=== PATIENT | female | born 1935 | race Caucasian/White ===

== ENCOUNTER 2017-10-14 12:10 | Inpatient (IN) | payer MEDICARE, OTHER ==
[2017-10-14] MEDS ORDERED: Lorazepam 2 MG/ML VIAL ONE (12:15)
[2017-10-14 12:42] LABS: #Eosinphils 0.1 thou/uL (0.0-0.7); #Lymphocytes 1.5 thou/uL (1.20-3.40); #Monocytes 0.3 thou/uL (0.11-0.59); #Neutrophils 6.9 thou/uL (1.40-6.50); %Basophils 0.2 % (0.0-1.0); %Eosinophils 0.8 % (0.0-10.0); %Lymphocytes 16.5 % (21.0-51.0); %Monocytes 3.9 % (0.0-10.0); %Neutrophils 78.5 % (42.0-75.0); Mean Corpuscular HGB CONC 31.9 g/dL (32.0-36.0); Mean Corpuscular Hemoglobin 30.4 pg (27.0-31.0); Mean Corpuscular Volume 95.4 fl (81.0-99.0); Mean Platelet Volume 7.6 fL (7.4-10.4); Platelet Count 239 thou/uL (130-400); RBC Distribution Width 12.1 % (11.5-14.5); Red Blood Cell (RBC) Count 4.26 mill/uL (4.20-5.40); White Blood Cell (WBC) Count 8.8 thou/uL (4.8-10.8)
[2017-10-14 13:10] LABS: INR-International Normal Ratio 1.6; Prothrombin Time 19.5 SEC (12.0-14.7)
[2017-10-14 13:11] LABS: PTT 55.6 SEC (22.9-36.1)
[2017-10-14 13:14] LABS: Bilirubin Negative (Negative); Blood, Urine Negative (Negative); Clarity CLEAR (Clear); Glucose, Urine (Dipstick) Negative (Negative); Leukocyte Negative (Negative); Nitrite Negative (Negative); Protein, Urine (Dipstick) Negative (Neg-Trace); Specific Gravity, Urine 1.016 (1.002-1.036); Urobilinogen 0.2 mg/dL (0.2-1.0)
--- NOTE | 2017-10-14 13:18 | CT ---
CT BRAIN WITHOUT CONTRAST: HISTORY: Stroke alert. Aphasia. Combative. Left-sided facial drooping. FINDINGS: No evidence of acute infarct, hemorrhage, midline shift, or abnormal extraaxial fluid collection is s een. 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 The ventricular size is appropriate, and the basilar cisterns are patent. The bony calvarium is intact. There is mild mucosal disease in the paranasal sinuses. IMPRESSION: No CT evidence of acute intracranial process. The results were called over the telephone to the ER physician, Dr. Glez, at 12:35 p.m. CODE CR POS: [facility]
[2017-10-14 13:25] LABS: ALT (SGPT) 14 U/L (8-55); AST (SGOT) 26 U/L (5-34); Albumin 3.9 g/dL (3.4-4.8); Alkaline Phosphatase 79 U/L (40-150); Anion Gap 13 mmol/L (10-20); BUN (Urea Nitrogen) 11 mg/dL (9.8-20.1); Bilirubin, Total 0.6 mg/dL (0.2-1.2); Calc. Creatinine Clearance 0 mL/min (70-130); Calcium 8.7 mg/dL (7.8-10.44); Carbon Dioxide 21 mmol/L (23-31); Chloride 106 mmol/L (98-107); Estimated GFR-MDRD 70; Globulin 3.7 g/dL (2.4-3.5); Glucose 117 mg/dL (83-110); Potassium 4.3 mmol/L (3.5-5.1); Protein, Total 7.6 g/dL (6.0-8.3); Sodium 136 mmol/L (136-145)
--- NOTE | 2017-10-14 13:37 | CT ---
CT ANGIO HEAD WITH CONTRAST CT ANGIO NECK: CT ANGIO HEAD WITH CONTRAST: TECHNIQUE: Multiple axial tomograms are obtained through the head following a cerebral angio protocol with multi planar reconstruction and 3D post processing. INDICATION: Stroke alert. Aphasia. Left side weakness. FINDINGS: The intracranial internal carotid arteries appear patent and symmetric. Anterior cerebral arteries, middle cerebral arteries, and posterior cerebral arteries also appear patent and symmetric. Basilar artery is patent. There is no evidence of stenosis or occlusion. IMPRESSION: Unremarkable CT angio of brain. CT ANGIO NECK: TECHNIQUE: Multiple axial tomograms were obtained through the neck with multiplanar reconstruction and 3D post p rocessing. INDICATION: Stroke protocol, aphasia. FINDINGS: No evidence of stenosis is seen at the origin of the arch vessels. The common carotid arteries appea r unremarkable bilaterally. Mild atherosclerotic change seen in the bulbs bilaterally; however, there is no evidence of stenosis seen in either internal carotid artery. Vertebral arteries are patent. No vertebral stenosis. IMPRESSION: Unremarkable CT angio neck. POS: [facility]
[2017-10-14] MEDS ORDERED: ISOVUE-370 76%-LOCM 1 ML ONE (15:07)
[2017-10-14] MEDS ORDERED: Sodium Chloride 0.9% 1,000 ML IV SCH (15:31)
[2017-10-14] MEDS ORDERED: Ondansetron HCl/PF 4 MG/2 ML Vial IVP PRN (15:31)
[2017-10-14] MEDS ORDERED: Guaifenesin DM 100-10/5 ML UDCUP PO PRN (15:31)
[2017-10-14 15:48] LABS: Dilantin Less than 1.8 ug/mL (10.0-20.0); Valproic Acid (Depakene) Less than 12.5 ug/mL (50.0-100.0)
[2017-10-14] MEDS: Dextrose 5 %-0.45 % NaCl 1,000 ML IV SCH (16:18)
--- NOTE | 2017-10-14 16:48 | CON ---
DATE OF CONSULTATION: 10/14/2017 SERVICE: Pulmonary Medicine. REASON FOR CONSULTATION: ICU patient. HISTORY OF PRESENT ILLNESS: The patient is an 82-year-old white female with past medical history significant for absolutely nothing that I am aware of. That being said, she was in her usual state of health until about 11:30 this morning. She is visiting [place] from out of town. She developed acute onset of encephalopathy and difficulty with speaking. She was subsequently brought to the emergency department. Fear for an acute stroke was present. As such, she was given TPA. She got tucked in the ICU. She cannot provide any additional elements of the history. Her sister apparently was present in the ER, but not currently at bedside. Otherwise, I am not aware of any subacute presentation of fevers, chills, shortness of breath or chest discomfort. PAST MEDICAL HISTORY: 1. Hypertension. 2. Seizure disorder. PAST SURGICAL HISTORY: Right carotid endarterectomy. SOCIAL HISTORY: She has a remote history of smoking, but apparently quit. I am not aware of any alcohol or illicit drug use. FAMILY HISTORY: Likely noncontributory. ALLERGIES: No known drug allergies. MEDICATIONS: Unknown. REVIEW OF SYSTEMS: This cannot be obtained as the patient is currently encephalopathic. PHYSICAL EXAMINATION: VITAL SIGNS: Afebrile, pulse 68, blood pressure 118/66, respirations 13, saturation 99% on room air. GENERAL: The patient is awake and alert, in no apparent distress. LUNGS: Excellent air entry. There is no prolonged expiratory phase, wheezing, rhonchi, or crackles present. HEART: Normal rate, regular. ABDOMEN: Soft, nontender, nondistended. Bowel sounds are positive. MUSCULOSKELETAL: No cyanosis or clubbing. There is no pitting in the bilateral lower extremities. NEUROLOGIC: Her pupils are equal, round, and reactive to light. Doll's eyes are normal. She is not following any commands, but all extraocular movements are intact. Strength appears to be symmetric throughout. Reflexes are certainly symmetric at the brachioradialis, biceps, patellar, and Achilles. She demonstrates fairly decent strength though she is not following any commands. Sensation is clearly intact throughout as she has withdrawal, and grimace associated with minimal stimulation in the bilateral upper and lower extremities. I do not appreciate any significant facial asymmetry. She is not able to repeat words. She answers in 1-2 word sentences. Proprioception cannot be assessed because the patient does not follow commands. LABORATORY DATA: WBC 8.8, hemoglobin 13.0, platelets 238,000. INR 1.6. Basic metabolic profile, liver function studies are essentially unremarkable. Urinalysis is unremarkable. Toxicology is negative to date. IMAGIN. CTA of the head demonstrates no evidence of stenosis seen in the origin of the arch vessels, carotid arteries appear unremarkable bilaterally. There are mild atherosclerotic changes in the bulbs bilaterally with no evidence of stenoses and either internal carotid artery. Vertebral arteries are patent. No vertebral stenosis is identified. 2. CT of the brain demonstrates no obvious intracranial abnormality. 3. CTA of the [place] demonstrates no obvious flow limiting lesion. ASSESSMENT: 1. Metabolic encephalopathy. 2. Seizure disorder. 3. Spell, status post TPA. DISCUSSION AND PLAN: We can get an MRI tomorrow. Her mentation is starting to clear already. As such, we will just give her more time for that. We will continue her antiepileptic drug, and I will check an ammonia level with tomorrow morning's laboratories. Of note, her INR was 1.6. I do wonder whether or not the synthetic function of her liver is impaired. We will attempt to get some records from family and local physicians. We will continue gentle hydration over the next 24 hours. Pulmonary Critical Care will continue to follow along. 70 minutes have been devoted to this patient in various activities. I personally reviewed all imaging studies and laboratory data noted within this document. For fifty percent of this time, I was interacting with the patient at the bedside or coordinating care with the care team. For the remainder of the time I was immediately available to the patient in the hospital unit. FORD
[2017-10-14] MEDS: hydrALAZINE 20 MG/ML VIAL SLOW IVP PRN ×2 (16:55→21:05)
[2017-10-14 18:19] LABS: Lactic Acid 0.9 mmol/L (0.5-2.2)
[2017-10-14] MEDS: Famotidine 20 MG TAB PO SCH (20:29)
[2017-10-14] MEDS: Docusate 100 MG CAP PO SCH (20:29)
[2017-10-14] MEDS: Atorvastatin Calcium 20 MG TAB PO SCH (20:29)
--- NOTE | 2017-10-15 02:41 | HP ---
REASON FOR ADMISSION: Acute cerebrovascular accident with aphasia. HISTORY OF PRESENT ILLNESS: Please note the majority of this history is obtained by talking to Dr. Glez in the ER as patient is currently not oriented. She apparently came along with her sister here to visit [employer] [facility] from [place]. The patient is 82 years old. She normally does all her activities of daily living. She apparently is also healthy, per sister, who accompanied the patient to the ER, but is not here at present. While she was at the [facility], she got agitated, confused, and stopped talking. She was moving all extremities. She was brought to emergency room and was suspected to have a stroke. This happened around 11:30. She was within the window and the case was discussed with Dr. Juan Horvath, neurologist over the phone. She was given TPA in the ER. Post-TPA, patient has been talking, but is not making any sense at present. The patient also has known history of seizure disorder and per ER physician, who discussed with the patient's sister. This did not appear to be a grand mal seizure per bystanders and the sister. PAST MEDICAL/SURGICAL HISTORY: Hypertension, questionable seizure disorder, right carotid artery endarterectomy, pacemaker. CURRENT MEDICATIONS: Cannot be obtained as patient is not oriented and no family is available. PERSONAL HISTORY: Per ER records, the patient was a former smoker. Does not abuse alcohol or drugs at present. FAMILY HISTORY: Cannot be obtained as patient is not oriented. REVIEW OF SYSTEMS: Cannot be obtained as patient is not oriented. PHYSICAL EXAMINATION: GENERAL: The patient is an 82-year-old female who is currently not in any acute distress, but is not oriented. VITAL SIGNS: Pulse is 182/76, pulse 70 per minute, respiratory rate 18 per minute, temperature 98.1 degrees Fahrenheit, and saturating 94% on room air. NECK: Supple, no elevated JVD. HEENT: Extraocular muscles intact. Pupils reacting to light. Oral cavity mucous membranes are dry. No exudates or congestion. CARDIOVASCULAR: S1 and S2 heard. Regular rhythm. RESPIRATORY: Air entry 1+ bilaterally. No rales or rhonchi. ABDOMEN: Soft, bowel sounds heard. No tenderness, rigidity or guarding. EXTREMITIES: No peripheral edema or calf tenderness. VASCULAR SYSTEM: Peripheral pulses 1+ bilateral, no ischemic ulcerations or gangrene. CENTRAL NERVOUS SYSTEM: Patient is seen moving all extremities. Her hand it applications manager is good in both upper extremities. The patient is able to lift up to 30 degrees in both lower extremities, but does not sustain a lift and hardly holds for 3-4 seconds and drops them. This is equal in both lower extremities. It is unclear if patient is right or left handed at present. No gross focal deficits seen. The patient has some mild nystagmus, which appears to be horizontal. Her extraocular muscles are intact. No gross cranial nerve deficits are seen. Reflexes are 2+ bilateral. Babinski is equivocal. Cerebellar signs and gait cannot be tested at present due to patient's cognitive status. Psychiatric system: cannot be tested due to patient's poor cognitive status at present. LABORATORY AND X-RAY FINDINGS: EKG done shows paced rhythm at 86 beats per minute. QRS duration is 164 milliseconds. White count of 8, H&H 13 and 40, platelet count 239 with 78% neutrophils. PT/INR 19 and 1.6. PTT 55. Serum bicarbonate 21, BUN 11, creatinine 0.7, glucose is 117. Liver enzymes are within normal limits. Albumin is 3.9. UA shows no evidence of infection. Phenytoin levels are less than 1.8. Valproic acid is less than 12.5. CT angio brain and neck is unremarkable. CT brain shows no acute intracranial process. CLINICAL IMPRESSION AND PLAN: The patient is status post TPA for acute CVA for suspected acute cerebrovascular accident with aphasia. The patient does not have any gross motor deficits, which will be closely monitored. The patient apparently was fully nonverbal, but has been talking now, but is not making any sense with her verbage. She will be on D5 half NS at 75 mL per hour along with Pepcid, full dose aspirin, and Lipitor. We will empirically place her on Keppra 500 mg IV twice daily until we know the exact medications she takes for her seizures. Echo with 2D Doppler, MRI brain and Neurology consultation with Dr. Horvath will be requested as well. We will also ascertain more history once the family is available. There is no next of kin or person to notify or any family members or phone numbers available as of now on her demographic page on [employer]. Patient will be treated as full code until family is available to communicate her wishes. [facility]
--- NOTE | 2017-10-15 03:08 | CON ---
DATE OF CONSULTATION: 10/14/2017 CONSULTING PHYSICIAN: Hospitalist. IMPRESSION: 1. Stroke with receptive aphasia. 2. Hypertension. 3. Status post TPA. PLAN: 1. Monitor through the evening. 2. MRI of the brain tomorrow. 3. Start antiplatelet therapy and statin after 24 hours. HISTORY: Ms. Lr is an 82-year-old woman who was in the area out of town from her home. She was a ccompanied by her sister. She started acting incoherently while she was standing in the [facility] . She was brought in by EMS. She had a CT and CTA of the brain, both of which did not show any evid ence of stenosis or ischemic injury. Given that she was two hours into her symptomatology, she was g iven TPA. She has been moved to the ICU. She continues to not answer appropriately. She has otherw ise been stable since admission. PAST MEDICAL HISTORY: Otherwise unknown. ALLERGIES: Unknown. SOCIAL HISTORY: Unknown. FAMILY HISTORY: Unknown. REVIEW OF SYSTEMS: Not obtainable. PHYSICAL EXAMINATION: VITAL SIGNS: Blood pressure 185/74, pulse 65, and a sinus rhythm, respirations 18, saturation 96%. HEENT: Pupils are equal and reactive. Conjunctivae clear. Cranium normocephalic and atraumatic. NECK: Supple. EXTREMITIES: No cyanosis, clubbing or edema. NEUROLOGIC: She is lying in the bed covered up and the only verbiage I could get from her is that "I am cold, "could not get her to follow any commands appropriately. There is no facial asymmetry is n oted. No tone asymmetries were noted in the extremities. Plantar responses appear to be upgoing on the right. Gait is not testable. No abnormal movements were seen. IMAGING: Reviewed. SUMMARY: Picture of abrupt onset of lack of comprehension would be consistent with a left posterior parietal infarct. Agree with current treatment and will follow up on the results.
[2017-10-15] MEDS: hydrALAZINE 20 MG/ML VIAL SLOW IVP PRN ×3 (04:11→21:06)
[2017-10-15] MEDS: Dextrose 5 %-0.45 % NaCl 1,000 ML IV SCH (04:28)
[2017-10-15 06:04] LABS: INR-International Normal Ratio 1.4; Prothrombin Time 17.2 SEC (12.0-14.7)
[2017-10-15 06:05] LABS: Actual Bicarbonate (HCO3a) 23.4 mEq/L (22-28); Base Excess (BEa) -1.7 mEq/L (-2.0 to +3.0); CO2 Tension 41.3 mmHg (35.0-45.0); O2 Tension (PaO2) 51.4 mmHg (> 60.0); pH, Arterial 7.37 (7.35-7.45)
[2017-10-15 06:06] LABS: Calcium, Ionized 1.1 mmol/L (1.12-1.30); Hematocrit-ABG 43.8 % (36.0-47.0); Hemoglobin (Hb) 13.4 g/dL (12.0-16.0)
[2017-10-15 06:07] LABS: ALV-art Gradient 253.475 (0-20); Puncture Site RRA
[2017-10-15 06:22] LABS: ALT (SGPT) 14 U/L (8-55); AST (SGOT) 20 U/L (5-34); Albumin 3.8 g/dL (3.4-4.8); Alkaline Phosphatase 85 U/L (40-150); Anion Gap 12 mmol/L (10-20); BUN (Urea Nitrogen) 10 mg/dL (9.8-20.1); Bilirubin, Total 0.6 mg/dL (0.2-1.2); Calc. Creatinine Clearance 66 mL/min (70-130); Calcium 8.9 mg/dL (7.8-10.44); Carbon Dioxide 24 mmol/L (23-31); Cardiac Risk 2.2 (Less than 4.5); Chloride 102 mmol/L (98-107); Cholesterol 126 mg/dl (< 200 Desired); Estimated GFR-MDRD 63; Globulin 3.5 g/dL (2.4-3.5); Glucose 397 mg/dL (83-110); HDL Cholesterol 58 mg/dL (>60 Neg Risk); LDL Cholesterol, Calculated 55 mg/dL; Phosphorus 3.8 mg/dL (2.3-4.7); Potassium 3.2 mmol/L (3.5-5.1); Protein, Total 7.3 g/dL (6.0-8.3); Sodium 135 mmol/L (136-145); Triglycerides 63 mg/dL (Less than 150)
[2017-10-15 06:35] LABS: Band 1 % (5-11); Hemoglobin 13.1 g/dL (12.0-16.0); Lymphocytes 2 % (21-51); MDiff Complete? YES; Mean Corpuscular HGB CONC 32.4 g/dL (32.0-36.0); Mean Corpuscular Hemoglobin 30.5 pg (27.0-31.0); Mean Corpuscular Volume 94.2 fl (81.0-99.0); Mean Platelet Volume 7.8 fL (7.4-10.4); Monocytes 6 % (0-10); Neutrophil 91 % (42-75); PLT Morphology Comment Appears Adequate; Platelet Count 343 thou/uL (130-400); RBC Distribution Width 12.4 % (11.5-14.5); White Blood Cell (WBC) Count 26.2 thou/uL (4.8-10.8)
--- NOTE | 2017-10-15 08:27 | RAD ---
PORTABLE CHEST 1 VIEW: Date: 10/15/17 Time: 0608 hours HISTORY: Unresponsive, desaturation. FINDINGS/IMPRESSION: The heart size is normal. There is a right-sided pacer device. No lobar consolidation, pneumothoraces , marly pulmonary edema, or large effusions are seen. A questionable mild infiltrate is seen in the r ight lower lung. POS: [facility]
[2017-10-15] MEDS: Vancomycin HCl 1.25 GM in Sodium Chloride 0.9% 250 ML 250 ML IVPB SCH (08:45)
[2017-10-15] MEDS ORDERED: Dextrose 5% in Water 1,000 ML IV PRN (08:54)
[2017-10-15] MEDS ORDERED: Dextrose 50% Abboject 50 ML SYRINGE SLOW IVP PRN (08:54)
[2017-10-15] MEDS ORDERED: Cefepime 2 GM in Sodium Chloride 0.9% 100 ML IVPB SCH (09:00)
--- NOTE | 2017-10-15 09:05 | PRG ---
DATE OF SERVICE: 10/15/2017 SERVICE: Pulmonary Medicine INTERVAL HISTORY: The patient did poorly last night from a mentation standpoint. She started having a recrudescence in confusional state. She was unable to provide any additional elements of the history. That being said, she did not have a neurologic exam that was focalizing, though she cannot participate with some of the exam. Blood sugars went up. Additionally, she developed some hypoxemic failure requiring intermittent doses of BiPAP. She cannot provide additional elements of the history. Otherwise, there were no overnight events. There were no fevers. PHYSICAL EXAMINATION: VITAL SIGNS: Afebrile, pulse 97, blood pressure 141/54, respirations 24, saturation 100% on 21% FiO2 delivered via BiPAP with positive expiratory pressure of 8. HEENT: Normocephalic, atraumatic. Sclerae are white, conjunctivae pink. Oral mucosa is moist without lesions. LUNGS: Decent air entry. There are no prolonged expiratory phase. Rhonchi are present. No wheezing or crackles are appreciated. HEART: Normal rate, regular. ABDOMEN: Soft, nontender, nondistended. Bowel sounds are positive. MUSCULOSKELETAL: No cyanosis or clubbing. No pitting in the bilateral lower extremities. NEUROLOGIC: Grossly nonfocal. She is diffusely encephalopathic. I do not see any focalizing neurologic findings still. LABORATORY DATA: WBC 26.2, which is a significant rise, hemoglobin 13.1, platelets 343,000. INR 1.4 and gently down trending. PH 7.37, pCO2 41, pO2 51 , corresponding to saturation of 86%. This was on a Ventimask with 50% FiO2 at that time. Sodium 135, and gently down trending, potassium 3.2. Basic metabolic profile and liver function studies are otherwise unremarkable. Ammonia level was also normal. Urinalysis is completely unremarkable. Phenytoin level, and valproate level are both below the assay limit. IMAGING: Chest x-ray demonstrates there is a dual lead pacemaker in the right subclavian vein. There is a likely small infiltrate in the right basilar region. Otherwise, there is no obvious pleural effusion or massive consolidation identified. ASSESSMENT: 1. Acute hypoxic respiratory failure. 2. Metabolic encephalopathy. 3. Seizure disorder. 4. Cerebrovascular accident, status post t-PA. 5. Severe sepsis. 6. Community-acquired pneumonia. 7. Diabetes mellitus. DISCUSSION AND PLAN: We will increase insulin. I will take her off the D5 normal saline and put her on just regular normal saline for maintenance fluids. Potassium will be replaced today. I will check a magnesium with tomorrow morning's laboratories. A stat EEG is going to be performed. Hopefully, we will be able to get an MRI, but if we cannot, she may need a repeat CT of the head. Pulmonary Critical Care will continue to follow along and she will certainly need to remain in the ICU for the time being. FORD
[2017-10-15] MEDS: Potassium Chloride 40 MEQ in Sodium Chloride 0.9% 250 ML 250 ML IVPB SCH ×2 (10:26→14:57)
[2017-10-15] MEDS: Cefepime 2 GM in Sodium Chloride 0.9% 100 ML IVPB SCH ×2 (10:26→17:12)
[2017-10-15] MEDS: Sodium Chloride 0.9% 1,000 ML IV SCH ×2 (10:28→21:08)
[2017-10-15] MEDS: Famotidine 20 MG TAB PO SCH (10:33)
[2017-10-15] MEDS: Docusate 100 MG CAP PO SCH ×2 (10:33→21:55)
--- NOTE | 2017-10-15 13:16 | PDOC.PN ---
- Subjective Encounter Start Date: 10/15/17 Encounter Start Time: 10:25 Subjective: is getting EEG done, not awake -: seen moving left extre freely and right UE as well -: no obvious seizures noticed by staff overnight until now - Objective MAR Reviewed: Yes Vital Signs & Weight: Vital Signs (12 hours) Temp Pulse Resp BP Pulse Ox 10/15/17 08:00 97.5 F L 98 24 H 97 10/15/17 07:00 97.5 F L 10/15/17 06:25 100 26 H 98 10/15/17 06:05 82 L 10/15/17 04:11 81 188/56 H 10/15/17 04:00 95 10/15/17 03:00 97.5 F L Most Recent Monitor Data Heart Rate from ECG 77 NIBP 132/42 NIBP BP-Mean 56 Respiration from ECG 20 SpO2 99 I&O: 10/14/17 10/15/17 10/16/17 06:59 06:59 06:59 Intake Total 1156 Output Total 2405 163 Balance -1249 -163 Result Diagrams: 10/15/17 05:40 10/15/17 05:40 Phys Exam - Physical Examination HEENT: PERRLA, sclera anicteric Neck: no JVD, supple Respiratory: no wheezing, no rales Cardiovascular: RRR, no significant murmur Gastrointestinal: soft, non-tender, positive bowel sounds Musculoskeletal: no edema, pulses present Neurological: non-focal Dx/Plan (1) Acute encephalopathy Code(s): G93.40 - ENCEPHALOPATHY, UNSPECIFIED Status: Acute (2) CVA (cerebral vascular accident) Code(s): I63.9 - CEREBRAL INFARCTION, UNSPECIFIED Status: Suspected Qualifiers: CVA mechanism: unspecified Qualified Code(s): I63.9 - Cerebral infarction, unspecified (3) h/o seizure disorder Status: Chronic (4) Afib Code(s): I48.91 - UNSPECIFIED ATRIAL FIBRILLATION Status: Suspected Qualifiers: Atrial fibrillation type: paroxysmal Qualified Code(s): I48.0 - Paroxysmal atrial fibrillation (5) Sepsis Code(s): A41.9 - SEPSIS, UNSPECIFIED ORGANISM Status: Acute Qualifiers: Sepsis type: sepsis due to unspecified organism Qualified Code(s): A41.9 - Sepsis, unspecified organism (6) PNA (pneumonia) Code(s): J18.9 - PNEUMONIA, UNSPECIFIED ORGANISM Status: Acute Qualifiers: Pneumonia type: due to unspecified organism (7) Dyslipidemia Code(s): E78.5 - HYPERLIPIDEMIA, UNSPECIFIED Status: Chronic (8) HTN (hypertension) Code(s): I10 - ESSENTIAL (PRIMARY) HYPERTENSION Status: Chronic Qualifiers: Hypertension type: essential hypertension Qualified Code(s): I10 - Essential (primary) hypertension - Plan is on cefepime and vanc, cultures -: asp, lipitor, iv hydration -: dc keppra due to increasing lethargy/hypoxia -: tried to call Mr.John Lr x2 at diff times, unable to reach him -: prognosis guarded, if she gets worse might need intubation * . Review of Systems - Medications/Allergies Allergies/Adverse Reactions: Allergies Allergy/AdvReac Type Severity Reaction Status Date / Time No Known Drug Allergies Allergy Unverified 10/14/17 15:42 Medications: Current Medications Acetaminophen (Tylenol) 650 mg PO Q4H PRN PRN Reason: Headache/Fever or Pain Aspirin (Ecotrin) 325 mg PO DAILY [facility] Atorvastatin Calcium (Lipitor) 20 mg PO HS [facility] Last Admin: 10/14/17 20:29 Dose: Not Given Dextrose/Water (Dextrose 50%) 25 gm SLOW IVP PRN PRN PRN Reason: Hypoglycemia Docusate Sodium (Colace) 100 mg PO BID [facility] Last Admin: 10/15/17 10:33 Dose: Not Given Famotidine (Pepcid) 20 mg PO BID [facility] Last Admin: 10/15/17 10:33 Dose: Not Given Glucagon (Glucagon) 1 mg IM PRN PRN PRN Reason: Hypoglycemia Hydralazine HCl (Apresoline) 10 mg SLOW IVP Q15MIN PRN PRN Reason: SBP > 180 Last Admin: 10/15/17 04:11 Dose: 10 mg Vancomycin HCl 1.25 gm/ Sodium (Chloride) 250 mls @ 166.667 mls/hr IVPB 0800 [facility] Last Admin: 10/15/17 08:45 Dose: 250 mls Sodium Chloride (Normal Saline 0.9%) 1,000 mls @ 100 mls/hr IV .Q10H [facility] Last Admin: 10/15/17 10:28 Dose: 1,000 mls Dextrose/Water (D5w) 1,000 mls @ 0 mls/hr IV .Q0M PRN; As Directed PRN Reason: Hypoglycemia Potassium Chloride 40 meq/ (Sodium Chloride) 270 mls @ 67.5 mls/hr IVPB Q4H [facility] Stop: 10/15/17 16:59 Last Admin: 10/15/17 10:26 Dose: 270 mls Cefepime HCl 2 gm/ Sodium (Chloride) 100 mls @ 200 mls/hr IVPB 0100,0900,1700 [facility] Last Admin: 10/15/17 10:26 Dose: 100 mls Insulin Human Regular (Humulin R) 0 units SC .MILD SLIDING SCALE PRN PRN Reason: Mild Correctional Scale Miscellaneous Medication (Pharmacy To Dose) 0 each IVPB ASDIR [facility] Ondansetron HCl (Zofran) 4 mg IVP Q6H PRN PRN Reason: Nausea/Vomiting Sodium Chloride (Flush - Normal Saline) 10 ml IVF Q12HR [facility] Last Admin: 10/15/17 10:28 Dose: 10 ml Sodium Chloride (Flush - Normal Saline) 10 ml IVF PRN PRN PRN Reason: Saline Flush
[2017-10-15] MEDS ORDERED: PHENYLEPHRINE-NS 100 MCG/ML 10 ML SYRINGE ONE (15:42)
[2017-10-15] MEDS ORDERED: Lidocaine 1% PF 5 ML VIAL ONE (15:42)
[2017-10-15] MEDS ORDERED: PROPOFOL 200 MG/20 ML VIAL ONE (15:42)
--- NOTE | 2017-10-15 16:38 | MRI ---
BRAIN MRI WITH AND WITHOUT CONTRAST 10/15/17 CLINICAL HISTORY: Left facial droop, aphasia, neurological decline. Reference made to preceding head CT 10/14/17. FINDINGS: There has been interval development of mass producing hemorrhage centered at the left cerebellar rachael sphere with effacement of the fourth ventricle and rightward midline shift within the posterior fossa . There is resultant prominence of ventricular system with periventricular T2 hyperintensity indicati ng transependymal CSF migration. Additional nidus of hemorrhage is seen at the left occipital lobe. T here are also scattered extra-axial susceptibility regions likely related to scattered subarachnoid h emorrhage. The evaluation is limited by the degree of patient motion. Susceptibility along the interh emispheric falx in an extra-axial distribution is also present. no enhancing intra-axial mass is seen . Prominent degree of vasogenic edema is present at the left cerebellar hemisphere surrounding the abov e described large hemorrhage. The combination of hemorrhage and edema occupies the near entirety of t he left cerebellar hemisphere. There is also mass effect upon the adjacent brain stem. Parenchymal at rophy present. Scattered paranasal sinus mucosal thickening is incidentally seen. IMPRESSION: Large, interval, acute left posterior fossa hemorrhage with surrounding vasogenic edema which produce s ventricular obstruction at the level of the fourth ventricle. There is ventriculomegaly with transe pendymal CSF migration. Mass effect upon brain stem is also present. Additional multifocal intracranial hemorrhagic susceptibility is present bilaterally. Emergent neurosurgical consultation for decompression is warranted. Telephone call of findings placed to the patient's ordering physician, Vika Melendez, [phone], 10/15/17. Code CR POS: [facility]
[2017-10-15] MEDS ORDERED: PROPOFOL 20 ML ONE (16:49)
[2017-10-15] MEDS ORDERED: Propofol BOLUS 1,000 MG/100 ML VIAL IV PRN (17:00)
[2017-10-15] MEDS ORDERED: Ventilator Sedation Protocol 1 EACH FS SCH (17:00)
[2017-10-15] MEDS ORDERED: Fentanyl BOLUS 250 ML IVPB PRN (17:00)
[2017-10-15] MEDS ORDERED: fentaNYL Citrate/PF 2,000 MCG in Sodium Chloride 0.9% 60 ML IV SCH (17:00)
[2017-10-15] MEDS ORDERED: DISCONTINUE PREVIOUS NARCOTIC PAIN MEDICATIONS AND BENZODIAZEPINES FS SCH (17:00)
[2017-10-15] MEDS ORDERED: IDARUCIZUMAB 2.5 GM/50 ML VIAL IV SCH (17:00)
[2017-10-15] MEDS ORDERED: Lorazepam 2 MG/ML VIAL SLOW IVP PRN (17:00)
[2017-10-15] MEDS ORDERED: Bupivacaine 0.25% HCL 30 ML VIAL ONE (17:03)
[2017-10-15] MEDS ORDERED: Sodium Chloride 0.9% 10 ML ONE (17:03)
[2017-10-15] MEDS ORDERED: Bupivacaine PF 0.5% 30 ML VIAL ONE (17:03)
[2017-10-15] MEDS ORDERED: Bacitracin Zinc Ointment 30 gm TUBE ONE (17:04)
[2017-10-15] MEDS ORDERED: Thrombin 5000 UNITS/5 ML VIAL ONE ×2 (17:04→18:09)
[2017-10-15] MEDS ORDERED: Bupivacaine HCl 0.5%/Epinephrine 1:200,000/PF 30 ml Vial ONE (17:05)
[2017-10-15] MEDS ORDERED: Fentanyl 250 MCG/5 ML VIAL ONE (17:11)
[2017-10-15] MEDS ORDERED: Phenylephrine HCL 10 MG/ML VIAL ONE (17:19)
--- NOTE | 2017-10-15 18:14 | RAD ---
ONE VIEW CHEST: 10/15/17 HISTORY: Ventilator patient. Respiratory distress. COMPARISON: 10/15/17. FINDINGS: There is no evidence of a ventilator. There is a right sided central venous catheter with its tip pro jecting over the superior vena cava. The right sided transvenous pacemaker with lead position in the right atrium and right ventricle. Slight elongation of the aorta. Normal cardiac silhouette. Chronic change in the lung parenchyma. Interstitial opacities are presumed to represent edema or infiltrate. No significant pleural fluid. No pneumothorax. IMPRESSION: 1. Interstitial opacities which are presumed to present edema or infiltrate. 2. Right sided internal jugular central venous catheter with distal tip projecting over the expe cted region of the superior vena cava. No pneumothorax. POS: [facility]
[2017-10-15] MEDS ORDERED: Vancomycin HCl 1 GM in Premix Bag 1 BAG IVPB SCH (18:45)
[2017-10-15] MEDS ORDERED: Rocuronium Bromide 50 MG/5 ML VIAL ONE (19:01)
--- NOTE | 2017-10-15 20:19 | PDOC.EVN ---
Event Note - Event Note Event Note: D/w radiologist who read her MRI, showed massive left cerebellar bleed with midline shift and small occipital bleed as well. D/w who will be evaluating pt shortly and likely to go to OR based on his conversation with son Mr.Steve Lr. D/w Son Mr.Puett Osman over phone who is currently in [place] and gave full updates since admission and current critical situation with intracranial hemorrhage. He is aware that his mom recieved tPA on arrival for suspicion of cva and one of the major side effects being bleed. will be shortly d/w over phone over the next steps to be taken including surgery or do nothing and DNR. Patient apparently has advance directives and will try to fax it over to us. currently wants everything as per my conversation with him. He would consider DNR if she progressively deteriorates further. D/w and gave current updates. Prognosis is guarded. One dose of praxbind and 2 units of FFP's to be given prior to pt going to OR ( pt has recieved tPA and was also on pradaxa at home). Patient being on Pradaxa came to be known this afternoon after family provided med list.
[2017-10-15] MEDS: Propofol 1,000 MG/100 ML VIAL IV PRN (21:01)
[2017-10-15] MEDS: Atorvastatin Calcium 20 MG TAB PO SCH (21:55)
[2017-10-15] MEDS: Famotidine 40 MG/5 ML Oral Suspension PER TUBE SCH (22:00)
[2017-10-16] MEDS: Cefepime 2 GM in Sodium Chloride 0.9% 100 ML IVPB SCH ×3 (00:44→16:45)
--- NOTE | 2017-10-16 02:14 | PRG ---
DATE OF SERVICE: 10/15/2017/ I was contacted by Dr. Mota regarding the patient had received TPA yesterday upon presentation of conc britt of stroke-like symptoms. By report, the patient received the TPA and was subsequently found to h ave elevated PTT. Neurologically, she presented with aphasic and with altered mental status. Howeve r, over the course of the night and into today, she has become more drowsy and somnolent. An MRI dem onstrates a large hemorrhage in the left cerebellum with herniation and significant effacement of the fourth ventricle and obstructive hydrocephalus. Head CT yesterday demonstrated no abnormality. The re is also a smaller hemorrhage in the left occipital lobe. I discussed her care with her son, Dawson , who is in [place], and may be reached at [phone] and he consented to aggressive surgery and sta tiffanie that what his mother would have wanted. I asked that the patient be intubated, we prepared the o perating room for taking the patient to surgery, which should be a suboccipital craniectomy and place ment of an external ventricular drain. The goals, indications, risks, alternatives, complications we re discussed in detail regarding a craniectomy and hematoma evacuation, placement of a drain and all indicated procedures. She understands the purpose of surgery is for attempt at saving life. DIAGNOSIS: Large left cerebellar hemorrhage, status post TPA with history of a Pradaxa treatment.
[2017-10-16] MEDS: Morphine 4 MG/ML VIAL SLOW IVP PRN ×3 (02:29→14:06)
[2017-10-16] MEDS: hydrALAZINE 20 MG/ML VIAL SLOW IVP PRN ×6 (03:32→13:28)
--- NOTE | 2017-10-16 03:48 | OP ---
OR: 12. SURGEON: Waqar Tracey M.D. FLASH DRIER OPERATOR: Selvin Guerrero PA-C. PREPROCEDURE DIAGNOSIS: Large left cerebellar hemorrhage with herniation mass effect and obstructive hydrocephalus. POSTPROCEDURE DIAGNOSIS: Large left cerebellar hemorrhage with herniation mass effect and obstructiv e hydrocephalus. PROCEDURES: 1. Left suboccipital craniectomy for evacuation of infratentorial cerebellar hematoma. 2. Placement of external ventricular drain to control hydrocephalus. 3. Modifier 57 should be added to this surgery as the decision to operate was made on the day I saw the patient. DESCRIPTION OF PROCEDURE: After informed consent was obtained from the patient's son, the patient wa s brought to OR 12. Proper patient pause and identification was carried out. She was placed under e xcellent general endotracheal anesthesia and positioned prone on the operating room table following f ixation of the Barger cassi, headholder to her skull secured in the prone position, and in a milit abby chin tuck position as well. Hair was clipped in the suboccipital region and this area was steril jennifer cleansed, prepared, and draped following the making of a small linear incision. Proper patient p ause and identification was carried out, the wound was then opened with a combination of sharp, monop olar and blunt dissection, and we proceeded to open the suboccipital wound in the midline. Identifie d the midline keel and I then identified a small area over to the left in the infratentorial region a nd a suboccipital craniectomy was performed. As soon as this was done, the dura was opened and a sig nificant hemorrhage from the hematoma was evacuated. Hemostasis was maximized. The wound was copiou sly irrigated and then closed in anatomic layers. The patient then emerged from anesthesia.
[2017-10-16 05:05] LABS: Anion Gap 11 mmol/L (10-20); BUN (Urea Nitrogen) 13 mg/dL (9.8-20.1); Calc. Creatinine Clearance 86 mL/min (70-130); Calcium 8.4 mg/dL (7.8-10.44); Carbon Dioxide 22 mmol/L (23-31); Chloride 110 mmol/L (98-107); Estimated GFR-MDRD 84; Glucose 172 mg/dL (83-110); Magnesium 1.7 mg/dL (1.6-2.6); Phosphorus 1.7 mg/dL (2.3-4.7); Sodium 139 mmol/L (136-145)
[2017-10-16] MEDS: Sodium Chloride 0.9% 1,000 ML IV SCH ×3 (05:14→20:51)
[2017-10-16] MEDS: Propofol 1,000 MG/100 ML VIAL IV PRN (05:14)
[2017-10-16 05:37] LABS: Band 14 % (5-11); Hemoglobin 11.8 g/dL (12.0-16.0); Lymphocytes 2 % (21-51); MDiff Complete? YES; Mean Corpuscular HGB CONC 34.3 g/dL (32.0-36.0); Mean Corpuscular Volume 93.4 fl (81.0-99.0); Mean Platelet Volume 7.4 fL (7.4-10.4); Monocytes 6 % (0-10); Neutrophil 78 % (42-75); Platelet Count 221 thou/uL (130-400); RBC Distribution Width 12.8 % (11.5-14.5); Red Blood Cell (RBC) Count 3.68 mill/uL (4.20-5.40); White Blood Cell (WBC) Count 24.5 thou/uL (4.8-10.8)
[2017-10-16] MEDS: Vancomycin HCl 1.25 GM in Sodium Chloride 0.9% 250 ML 250 ML IVPB SCH (07:45)
[2017-10-16] MEDS: Docusate 100 MG CAP PO SCH ×2 (08:01→20:43)
[2017-10-16] MEDS: Famotidine 40 MG/5 ML Oral Suspension PER TUBE SCH ×2 (08:01→20:43)
--- NOTE | 2017-10-16 08:50 | CT ---
CT HEAD NONCONTRAST: HISTORY: Intracranial hemorrhage with surgical evaluation. Followup. COMPARISON: 10/14/17. FINDINGS: Left occipital craniotomy defect is now apparent with pneumocephalus supratentorially and infratentor ially. A small amount of right ventricular gas is also apparent. A small amount of blood within the lateral ventricles with right frontal ventriculostomy catheter in place. Minimal ventricular disten tion. A small amount of widespread subarachnoid hemorrhage. At the surgical bed left posterior fossa, a hyperdense fluid collection consistent with residual elizabeth fred is 2.3 x 1.3 cm greatest diameters. Adjacent vasogenic edema. Septum pellucidum remains midlin e. IMPRESSION: Interval surgical evaluation left posterior fossa hematoma with postoperative findings as detailed ab ove. POS: MILE
[2017-10-16] MEDS ORDERED: Cefepime 2 GM VIAL ONE (08:55)
[2017-10-16] MEDS ORDERED: Aspirin 325 mg Enteric Coated Tablet PO SCH (09:00)
--- NOTE | 2017-10-16 10:24 | EEG ---
Referring Physician: Bird ÁLVAREZ EEG # [[id number] TEST TYPE: STAT PORTABLE INPATIENT REPORT: AN EEG USING THE INTERNATIONAL TEN-TWENTY SYSTEM OF ELECTRODE PLACEMENT WAS PERFORMED. The best waking background is a 10 hertz occipitally dominant alpha frequency. Some occasional theta activity is seen. No sleep transients were noted. No epileptiform features were present. Photic stimulation was unremarkable. IMPRESSION: THIS IS A NORMAL AWAKE AND DROWSY EEG. Production Miner: DOUG Fixed Income Director: EEG.VERA YOUNGBLOOD
--- NOTE | 2017-10-16 10:26 | PRG ---
DATE OF SERVICE: 10/16/2017 SERVICE: Pulmonary Medicine INTERVAL HISTORY: The patient was doing fairly well yesterday. We got the scheduled MRI. This demonstrated a large cerebellar lesion with hemorrhage. As such, she subsequently went down for an emergent craniectomy. She is postop day #1 from that, has a ventriculostomy drain in place. Neurologically, she is roughly stable compared to before she went down. She is on a little bit of propofol. This is helping manage some of her blood pressures. That being said , we are going to work towards getting the tube out of her throat today. PHYSICAL EXAMINATION: VITAL SIGNS: Afebrile, pulse 78, blood pressure 143/40, respirations 19, saturation 97% on 21% FiO2 and a PEEP of 5. GENERAL: The patient is somnolent, but wakes up with gentle stimulation. She will open her eyes and follow some simple commands. She demonstrates decent strength in the bilateral upper and lower extremities. GENITOURINARY: Rodas catheter in place. LUNGS: Excellent air entry. There is no prolonged expiratory phase, wheezing or rhonchi. Dependent crackles are minimal. HEART: Normal rate, regular. ABDOMEN: Soft, nontender, nondistended. Bowel sounds positive. MUSCULOSKELETAL: No cyanosis or clubbing. Trace pitting is present in the bilateral lower extremities. NEUROLOGIC: Strength is symmetric, reflexes are symmetric, there are no cranial nerve abnormalities other than a gaze preference to the right. LABORATORY DATA: WBC 24.5, hemoglobin 11.8, platelets 221,000. INR 1.4. PH 7.37, pCO2 41, pO2 51. Basic metabolic profile is essentially unremarkable. Phosphorus is a little low and magnesium falls within the lower limits of normal. IMAGING: CT of the brain demonstrates surgical evacuation of the left posterior fossa hematoma with normal postoperative findings. ASSESSMENT: 1. Metabolic encephalopathy. 2. Seizure disorder. 3. Cerebrovascular accident, status post t-PA with subsequent hemorrhagic conversion, status post craniotomy, postoperative day #1. 4. Severe sepsis. 5. Community-acquired pneumonia. 6. Type 2 diabetes mellitus. DISCUSSION AND PLAN: We will replace magnesium and phosphorus. I will put an NG tube down the patient. Hopefully, this will be a small bore feeding tube. We initiate some tube feeds as I do not think she can be in a position to swallow for several days. We will put on a spontaneous breathing trial and if she meets criteria, extubation will be considered. Empiric antibiotics directed at lung issues will be continued: Pulmonary Critical Care to follow while patient remains in the ICU. CRITICAL CARE TIME: 30 minutes. MTDD
[2017-10-16] MEDS ORDERED: Magnesium 2 GM/NS 0.9% 100 ML 2 GM in Premix Bag 1 BAG IVPB SCH (10:30)
--- NOTE | 2017-10-16 10:30 | PRG ---
DATE OF SERVICE: 10/16/2017 She is stable postoperatively. She opens her eyes to voice. She does localize in her left lower ext remity and withdraws in her left upper extremity with minimal movement in the right upper extremity a nd right lower extremity; however, again the fact that she is opening her eyes already is excellent. Her head CT is satisfactory. The residual hematoma in the operative bed is simply hemostatic materi al. Her fourth ventricle is less effaced and her ventricular caliber is decreased, her external vent ricular drain is in a good position and is working satisfactorily with only 40 mL output overnight wi th ICPs in the 8-10 mmHg range. I have updated her son, Dawson. We will continue to follow her close ly and continue with the current parameters. I should note her white blood cell count is trending do wn. She likely has an aspiration pneumonia.
[2017-10-16 10:55] LABS: INR-International Normal Ratio 1.3; PTT 30.1 SEC (22.9-36.1)
[2017-10-16] MEDS: Insulin Regular 300 UNITS/3 ML VIAL SC PRN ×3 (11:08→21:33)
--- NOTE | 2017-10-16 12:03 | PQF ---
CLINICAL DOCUMENTATION IMPROVEMENT CLARIFICATION FORM: ICD-10 Updated PLEASE DO AN ADDENDUM TO THE PROGRESS NOTE WITH ANY DOCUMENTATION UPDATES OR ADDITIONS AND CARRY THROUGH TO DC SUMMARY. THANK YOU. DATE: 10/16/17 ATTN: Dr. Melendez Please exercise your independent, professional judgment in responding to the clarification form. Clinical indicators are provided on the bottom of this form for your review Please check appropriate box(s): [ ] Acute Respiratory Failure: [ ] with Hypoxia [ ] with Hypercapnia [ ] Acute On Chronic Respiratory Failure: [ ] with Hypoxia [ ] with Hypercapnia [ ] Acute Respiratory Failure due to: (etiology) [ x] Other diagnosis __post op resp failure and left intubated to help with raised intracranial pressure. [ ] Unable to determine In addition, please specify: Present on Admission (POA): [ ] Yes [ ] No [ ] Unable to determine For continuity of documentation, please document condition throughout progress notes and discharge summary. Thank You. CLINICAL INDICATORS - SIGNS / SYMPTOMS / LABS PULMONOLOGY PN 10/15: SHE DEVELOPED SOME HYPOXEMIC FAILURE REQUIRING INTERMITTENT DOSES OF BIPAP. PH 7.37, PCO2 41, PO2 51 CORRESPONDING TO SATURATION OF 86%, THIS WAS ON A VENTIMASK WITH 50% FIO2 AT THAT TIME. RISKS: PN 10/15: AGE 82. ACUTE ENCEPHALOPATHY. CVA. SEPSIS. PNEUMONIA. TREATMENT: ADMIT 10/14: CRITICAL CARE ORDER 10/15: RESP: CPAP/BIPAP CONTINUOUS ORDER 10/15: MAXIPIME 2 GM IV Thank you, Debi (This form is maintained as a part of the permanent medical record) 2015 [employer]. All Rights Reserved Debi Saab RN, BSN [email or web address] Office: [phone] [facility]
--- NOTE | 2017-10-16 12:15 | PDOC.PN ---
- Subjective Encounter Start Date: 10/16/17 Encounter Start Time: 12:00 Subjective: on vent, propofol for comfort -: is not awake, not in distress, has right gaze -: per staff moves right extre a bit but not left - Objective MAR Reviewed: Yes Vital Signs & Weight: Vital Signs (12 hours) Temp Pulse Resp BP Pulse Ox 10/16/17 11:00 99.2 F 10/16/17 10:59 80 164/50 H 10/16/17 10:49 93 170/56 H 10/16/17 10:00 16 10/16/17 08:00 98.8 F 79 18 97 10/16/17 07:00 98.8 F 10/16/17 06:45 78 141/37 H 10/16/17 06:42 78 137/36 L 10/16/17 06:00 19 10/16/17 05:02 77 141/42 H 10/16/17 04:35 77 152/45 H 10/16/17 04:19 77 140/31 L 10/16/17 04:00 22 H 10/16/17 03:32 74 149/51 H 10/16/17 03:00 98.2 F 10/16/17 02:00 18 10/16/17 00:31 74 153/40 H Weight Admit Weight 181 lb Weight 185 lb 10.067 oz Most Recent Monitor Data Heart Rate from ECG 76 NIBP 162/37 NIBP BP-Mean 51 Respiration from ECG 22 SpO2 96 I&O: 10/15/17 10/16/17 10/17/17 06:59 06:59 06:59 Intake Total 1156 1453 516.7 Output Total 2405 1678 139 Balance -1249 -225 377.7 Result Diagrams: 10/16/17 04:20 10/16/17 04:20 Additional Labs: Accuchecks 10/16/17 10/16/17 10/16/17 10:04 04:34 00:43 POC Glucose 162 H 152 H 184 H 10/15/17 13:51 POC Glucose 201 H Phys Exam - Physical Examination HEENT: sclera anicteric right upward gaze Neck: no JVD, supple Respiratory: no wheezing, no rales Cardiovascular: RRR, no significant murmur Gastrointestinal: soft, non-tender, positive bowel sounds Musculoskeletal: no edema, pulses present obtunded, earlier would open eyes not to me, not seen her move extremities Dx/Plan (1) occipital lobe hemorrhage Status: Acute Comment: s/p evacuation with evd, 10/15/2017 (2) Cerebellar hemorrhage, acute Code(s): I61.4 - NONTRAUMATIC INTRACEREBRAL HEMORRHAGE IN CEREBELLUM Status: Acute (3) Acute encephalopathy Code(s): G93.40 - ENCEPHALOPATHY, UNSPECIFIED Status: Acute (4) CVA (cerebral vascular accident) Code(s): I63.9 - CEREBRAL INFARCTION, UNSPECIFIED Status: Suspected Qualifiers: CVA mechanism: unspecified Qualified Code(s): I63.9 - Cerebral infarction, unspecified (5) h/o seizure disorder Status: Chronic (6) Afib Code(s): I48.91 - UNSPECIFIED ATRIAL FIBRILLATION Status: Chronic Qualifiers: Atrial fibrillation type: chronic Qualified Code(s): I48.2 - Chronic atrial fibrillation (7) Sepsis Code(s): A41.9 - SEPSIS, UNSPECIFIED ORGANISM Status: Acute Qualifiers: Sepsis type: sepsis due to unspecified organism Qualified Code(s): A41.9 - Sepsis, unspecified organism (8) PNA (pneumonia) Code(s): J18.9 - PNEUMONIA, UNSPECIFIED ORGANISM Status: Acute Qualifiers: Pneumonia type: due to unspecified organism (9) Dyslipidemia Code(s): E78.5 - HYPERLIPIDEMIA, UNSPECIFIED Status: Chronic (10) HTN (hypertension) Code(s): I10 - ESSENTIAL (PRIMARY) HYPERTENSION Status: Chronic Qualifiers: Hypertension type: essential hypertension Qualified Code(s): I10 - Essential (primary) hypertension (11) h/o right carotid endarterectomy Status: Chronic Comment: 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 * . gentle iv hydration, close icp monitoring on vanc and cefepime weaning when more awake ?seizure prophylaxis and steroids per NSX advice. Echo showed good ef, no obvious mention of thrombus, had parodoxical motion of septum due to LBBB. Review of Systems - Medications/Allergies Allergies/Adverse Reactions: Allergies Allergy/AdvReac Type Severity Reaction Status Date / Time No Known Drug Allergies Allergy Verified 10/15/17 18:55 Medications: Current Medications Acetaminophen (Tylenol) 650 mg PO Q4H PRN PRN Reason: Headache/Fever or Pain Albuterol/Ipratropium (Duoneb) 3 ml NEB [id number] PRN PRN Reason: SOB &/or Wheezing Atorvastatin Calcium (Lipitor) 20 mg PO HS [facility] Last Admin: 10/15/17 21:55 Dose: Not Given Dextrose/Water (Dextrose 50%) 25 gm SLOW IVP PRN PRN PRN Reason: Hypoglycemia Docusate Sodium (Colace) 100 mg PO BID [facility] Last Admin: 10/16/17 08:01 Dose: 100 mg Famotidine (Pepcid) 20 mg PER TUBE BID [facility] Last Admin: 10/16/17 08:01 Dose: 20 mg Glucagon (Glucagon) 1 mg IM PRN PRN PRN Reason: Hypoglycemia Hydralazine HCl (Apresoline) 20 mg SLOW IVP Q15MIN PRN PRN Reason: Sbp Greater Than 140 Last Admin: 10/16/17 10:59 Dose: 20 mg Vancomycin HCl 1.25 gm/ Sodium (Chloride) 250 mls @ 166.667 mls/hr IVPB 0800 [facility] Last Admin: 10/16/17 07:45 Dose: 250 mls Sodium Chloride (Normal Saline 0.9%) 1,000 mls @ 100 mls/hr IV .Q10H [facility] Last Admin: 10/16/17 09:08 Dose: 1,000 mls Dextrose/Water (D5w) 1,000 mls @ 0 mls/hr IV .Q0M PRN; As Directed PRN Reason: Hypoglycemia Cefepime HCl 2 gm/ Sodium (Chloride) 100 mls @ 200 mls/hr IVPB 0100,0900,1700 [facility] Last Admin: 10/16/17 09:07 Dose: 100 mls Fentanyl Citrate 2,000 mcg/ (Sodium Chloride) 100 mls @ 0 mls/hr IV INF ASHLEY; Per Protocol PRN Reason: Protocol Stop: 11/14/17 17:00 Fentanyl Citrate (Fentanyl Bolus) 250 mls @ 0 mls/hr IVPB PRN PRN; As Directed PRN Reason: Breakthrough pain/agitation Stop: 11/14/17 17:00 Magnesium Sulfate 2 gm/ Device 100 mls @ 100 mls/hr IVPB NOW ASHLEY Stop: 10/16/17 12:30 Last Admin: 10/16/17 11:00 Dose: 100 mls Sodium Phosphate 30 mmol/ (Sodium Chloride) 510 mls @ 85 mls/hr IVPB NOW ASHLEY Stop: 10/16/17 16:59 Last Admin: 10/16/17 11:11 Dose: 510 mls Insulin Human Regular (Humulin R) 0 units SC .MILD SLIDING SCALE PRN PRN Reason: Mild Correctional Scale Last Admin: 10/16/17 11:08 Dose: 2 unit Labetalol HCl (Normodyne) 20 mg SLOW IVP Q15MIN PRN PRN Reason: Sbp Greater Than 140 Lorazepam (Ativan) 2 mg SLOW IVP Q1H PRN PRN Reason: Breakthrough agitation Stop: 11/14/17 17:00 Miscellaneous Medication (Pharmacy To Dose) 0 each IVPB ASDIR ASHLEY Morphine Sulfate (Morphine) 2 mg SLOW IVP Q1H PRN PRN Reason: breakthrough pain/agitation Stop: 11/14/17 17:00 Last Admin: 10/16/17 05:02 Dose: 2 mg Discontinue Previous Narcotic Pain Medications And Benzodiazepines 1 each FS .ONE ASHLEY Stop: 11/14/17 17:00 Ondansetron HCl (Zofran) 4 mg IVP Q6H PRN PRN Reason: Nausea/Vomiting Propofol (Diprivan) 1,000 mg IV INF PRN; Protocol PRN Reason: TO ACHIEVE GOAL RASS Stop: 11/14/17 17:00 Last Admin: 10/16/17 05:14 Dose: 1,000 mg Propofol (Diprivan Bolus) 20 mg IV Q5MIN PRN PRN Reason: BREAKTHROUGH AGITATION Stop: 11/14/17 17:00 Sodium Chloride (Flush - Normal Saline) 10 ml IVF Q12HR ASHLEY Last Admin: 10/16/17 08:57 Dose: 10 ml Sodium Chloride (Flush - Normal Saline) 10 ml IVF PRN PRN PRN Reason: Saline Flush Sodium Chloride (Flush - Normal Saline) 10 ml IVF PRN PRN PRN Reason: Saline Flush
[2017-10-16] MEDS ORDERED: niCARdipine HCl 25 MG in Sodium Chloride 0.9% 250 ML 240 ML IVPB SCH (14:15)
[2017-10-16] MEDS ORDERED: Sodium Chloride 0.9% 250 ML 250 ML IVPB PRN (15:56)
[2017-10-16] MEDS: Diltiazem HCl 125 MG, Admixture Fee 1 EACH in Sodium Chloride 0.9% 100 ML IVPB SCH (16:20)
[2017-10-16] MEDS: Labetalol HCl 100 MG/20 ML VIAL SLOW IVP PRN ×4 (17:10→22:35)
[2017-10-16] MEDS: Atorvastatin Calcium 20 MG TAB PO SCH (20:43)
[2017-10-17] MEDS: Cefepime 2 GM in Sodium Chloride 0.9% 100 ML IVPB SCH ×3 (00:19→17:22)
[2017-10-17] MEDS: Labetalol HCl 100 MG/20 ML VIAL SLOW IVP PRN (00:41)
--- NOTE | 2017-10-17 02:03 | CON ---
DATE OF CONSULTATION: 10/16/2017 DATE OF ADMISSION: 10/14/2017 INDICATION FOR CONSULTATION: An 82-year-old female status post CVA with episode of atrial fibrillati on. HISTORY OF PRESENT ILLNESS: An 82-year-old female who was visiting from [place] to [place], and then started having mental status changes. She was brought to the emergency room and was thought to be having a CVA. She was given thrombolytic therapy in the form of TPA. She then subseq uently developed a large intracerebral hemorrhage, which has now since been evacuated. She was actua lly on Pradaxa also. This was found out apparently later from the family. She also has a dual-chamb er pacemaker inserted. So, the suspicion is that she has had atrial fibrillation in the past and thi s is why she was on the Pradaxa. At this time, she actually was in the Intensive Care Unit and devel oped atrial fibrillation with rapid ventricular response. She was given IV diltiazem as well as labe talol, is now converted back to what appears to be a sinus rhythm. Her previous EKG earlier today sh owed what appeared to be atrial fibrillation with rapid ventricular response and a left bundle branch block pattern. We have no other history if she has any history of coronary artery disease. There a re no family members available. She is on the ventilator and somewhat sedated at this time, but appe ars to be relatively stable. Her blood pressure is now stabilized as well as the heart rate. PAST MEDICAL HISTORY: Significant for apparently atrial fibrillation as well as a pacemaker insertio n. Apparently, she has had this checked previously in [place]. The pacemaker appears to have be en implanted in 11/2016 due to sick sinus syndrome, but there has not been any mention of any atrial fibrillation according to the records, but my suspicion is that she would be on the Pradaxa for that reason. She has also had a carotid endarterectomy. She does have a history of hypertension and also history of some seizure disorder. SOCIAL HISTORY: She lives with her sister in the housing apparently. She has 2 sons, one a pparently is on the cruise and the other son is actually in [place] at this time on business. SOCIAL HISTORY: She smoked in the past. ALLERGIES: None. MEDICATIONS: At this time include aspirin, Lipitor, Keppra, Colace, Pepcid, Apresoline, Zofran, and Tylenol. She has recently been started on the diltiazem for the hypertension and atrial fibrillation with rapid ventricular response as well as p.r.n. labetalol. REVIEW OF SYSTEMS: Not obtainable. PHYSICAL EXAMINATION: GENERAL: Reveals an elderly female on the ventilator. VITAL SIGNS: Blood pressure 125/45; heart rate is 70, she has a sinus rhythm; respiratory rate is 19 . HEENT: Shows the head to be normocephalic and atraumatic at this time. I do not hear any significan t bruits, but there is increased airways noise through the ventilation. CHEST: Clear to auscultation. CARDIOVASCULAR: Heart sounds are distant, but I do not hear any significant murmurs, heaves, thrills , bruits, or rubs. ABDOMEN: Soft and nontender. EXTREMITIES: No clubbing or cyanosis. Pedal pulses are present, but are decreased. NEUROLOGIC: The patient as noted above is sedated on the ventilator. She did have an echocardiogram performed, which showed a normal left ventricular systolic function an d 50%-55% ejection fraction with normal mitral and aortic valves with no evidence of significant regu rgitation or stenosis. She did have mild tricuspid valve regurgitation. IMPRESSION: 1. Status post cerebrovascular accident with subsequent hemorrhagic bleed, which required evacuation . She has been followed closely by the Neurosurgery service. 2. Atrial fibrillation with rapid ventricular response. She may have a history of atrial fibrillati on in the past and this is why she is on the Pradaxa. When she is more stable, we may need to reinst ate this medication, but at this time obviously that is not possible, but she remains in sinus rhythm at this time. 3. History of pacemaker insertion. This is a [employer] device. We will try to determine whether or not we can interrogate this device. It appears from the records that she had it implanted previousl y in 11/2016. Uncertain as to when it was last checked. It appears that this is an MRI compatible d evice. 4. Hypertension. This is under reasonable control with medical management. We will be more than cochran ppy to continue to follow the patient with you, but at this time, it is best to continue the diltiaze m and beta blockers as tolerated for rate control and hopefully will maintain sinus rhythm. Otherwis e, we could start her on amiodarone or Multaq to avoid further atrial fibrillation at this time.
[2017-10-17] MEDS: Sodium Chloride 0.9% 1,000 ML IV SCH (02:37)
[2017-10-17] MEDS: Insulin Regular 300 UNITS/3 ML VIAL SC PRN ×3 (03:09→20:29)
[2017-10-17] MEDS: hydrALAZINE 20 MG/ML VIAL SLOW IVP PRN ×3 (03:47→23:13)
[2017-10-17 04:57] LABS: #Lymphocytes 0.5 thou/uL (1.20-3.40); #Neutrophils 13.6 thou/uL (1.40-6.50); %Basophils 0.2 % (0.0-1.0); %Eosinophils 0.2 % (0.0-10.0); %Lymphocytes 3.4 % (21.0-51.0); %Monocytes 6.4 % (0.0-10.0); %Neutrophils 89.8 % (42.0-75.0); Hemoglobin 9.5 g/dL (12.0-16.0); Mean Corpuscular HGB CONC 33.8 g/dL (32.0-36.0); Mean Corpuscular Hemoglobin 31.8 pg (27.0-31.0); Mean Platelet Volume 7.5 fL (7.4-10.4); Platelet Count 182 thou/uL (130-400); RBC Distribution Width 12.6 % (11.5-14.5); White Blood Cell (WBC) Count 15.2 thou/uL (4.8-10.8)
[2017-10-17 05:23] LABS: Anion Gap 10 mmol/L (10-20); BUN (Urea Nitrogen) 16 mg/dL (9.8-20.1); Calc. Creatinine Clearance 92 mL/min (70-130); Calcium 7.8 mg/dL (7.8-10.44); Carbon Dioxide 21 mmol/L (23-31); Chloride 114 mmol/L (98-107); Estimated GFR-MDRD 87; Glucose 170 mg/dL (83-110); Magnesium 2.1 mg/dL (1.6-2.6); Phosphorus 2.2 mg/dL (2.3-4.7); Potassium 3.4 mmol/L (3.5-5.1); Sodium 142 mmol/L (136-145)
[2017-10-17 07:25] LABS: Vancomycin, Trough 7.5 ug/mL
--- NOTE | 2017-10-17 07:46 | OP ---
DATE OF SERVICE: 10/15/2017 SERVICE: Pulmonary Medicine. PROCEDURE: Right-sided 8.5 Syriac IJ central venous catheter placement under ultrasound guidance. CONSENT: Risks and benefits of this procedure were explained to the medical decision maker. All questions were answered and alternative options discussed. STAFF PHYSICIAN: Kwaku Vallejo M.D. MEDICATIONS USED: None. PREOPERATIVE DIAGNOSES: Need for IV access. POSTPROCEDURE DIAGNOSES: Need for IV access. DESCRIPTION OF PROCEDURE: Vital sign monitoring was accomplished by noninvasive hemodynamic monitoring, pulse oximetry, and telemetry. A timeout was performed and the patient was positively identified by name and date of . The procedure site was marked. The patient was placed in the supine position and the right neck was prepped and draped in sterile fashion. The course of the internal jugular vein was mapped with ultrasound. The cannulation needle was placed in the internal jugular vein under direct ultrasound guidance with return of dark red, nonpulsatile blood on the first attempt. A J-shaped guidewire was threaded through the cannulation needle without difficulty. A small incision was made. The dilator and triple-lumen catheter were serially threaded over the guidewire. The catheter was sutured to the skin at 18 cm with 3-0 silk sutures x4. All ports withdrew and flushed without difficulty. A sterile dressing was applied and the procedure was terminated. Post-procedure demonstrated adequate location for the tip of the catheter. ESTIMATED BLOOD LOSS: 2 mL. COMPLICATIONS: None. MTDD
[2017-10-17] MEDS ORDERED: Lorazepam 2 MG/ML VIAL SLOW IVP PRN (09:41)
[2017-10-17] MEDS ORDERED: Carvedilol 6.25 MG TAB PO SCH (09:45)
[2017-10-17] MEDS ORDERED: Sodium Chloride 0.9% 1,000 ML IV SCH (09:48)
[2017-10-17] MEDS ORDERED: Potassium Phosphate 30 MMOL in Sodium Chloride 0.9% 500 ML IVPB SCH (10:00)
--- NOTE | 2017-10-17 10:02 | PRG ---
DATE OF SERVICE: 10/17/2017 SERVICE: Pulmonary Medicine. INTERVAL HISTORY: The patient is doing outstanding from a respiratory standpoint. She is on room air and breathing comfortably. She is on a CPAP trial and has been on pressure support ventilation since yesterday without any incident. Her brain is starting to wake up a little bit more. She is following commands and moving her upper and lower extremities. That being said , she remains fairly somnolent. PHYSICAL EXAMINATION: VITAL SIGNS: Afebrile, pulse 62, blood pressure 132/34, respirations 22, saturation 96% on room air. GENERAL: The patient is awake and alert, in no apparent distress. LUNGS: Decent air entry bilaterally. There is no prolonged expiratory phase, wheezing, rhonchi or crackles. HEART: Normal rate, regular. ABDOMEN: Soft, nontender, nondistended. Bowel sounds are positive. MUSCULOSKELETAL: No cyanosis or clubbing. There is no pitting in the bilateral lower extremities. NEUROLOGIC: She demonstrates good strength in bilateral upper and lower extremities. She withdraws from noxious stimuli in upper and lower extremities. HEENT: Pupils are equal, round, and reactive. She has got a right gaze preference. ASSESSMENT: 1. Metabolic encephalopathy, resolving. 2. Seizure disorder. 3. Cerebrovascular accident, status post TPA with subsequent hemorrhagic conversion, status post craniectomy, postoperative day #2. 4. Severe sepsis. 5. Community-acquired pneumonia. 6. Type 2 diabetes mellitus. 7. Atrial fibrillation with rapid ventricular rate, converted to normal sinus rhythm. DISCUSSION AND PLAN: We will put a small bore feeding tube down. We will initiate tube feeds. The endotracheal tube and OG tube will be removed. We will see whether or not she protects her airway. My suspicion is that she will , because she did previously. We will continue our antibiotics. We will try to mobilize the patient through the day and involve physical therapy and occupational therapy in her recovery. P.o. blood pressure medications will be initiated. Critical care time: 30 minutes. FORD
[2017-10-17] MEDS: Docusate 100 MG CAP PO SCH ×2 (10:22→19:44)
[2017-10-17] MEDS: Famotidine 40 MG/5 ML Oral Suspension PER TUBE SCH ×2 (10:22→19:44)
[2017-10-17] MEDS: Diltiazem HCl 125 MG, Admixture Fee 1 EACH in Sodium Chloride 0.9% 100 ML IVPB SCH ×2 (10:23→17:54)
[2017-10-17] MEDS: Vancomycin HCl 1 GM in Premix Bag 1 BAG IVPB SCH ×2 (10:25→19:45)
--- NOTE | 2017-10-17 11:05 | PRG ---
DATE OF SERVICE: 10/17/2017 Ms. Lr is postoperative day 2 from suboccipital craniectomy for cerebellar hematoma evacuation and placement of external ventricular drain to treat obstructive hydrocephalus. This morning she opens her eyes to voice. She does have a disconjugate gaze, but does follow commands in all 4 extremities briskly. She frankly looks quite good and I am very pleased with how she is doing. We will increase her systolic blood pressure allowance to 150. We will remove the arterial line and raise her gear shaver set up operator al ventricular drain to 15 cm of water. The plan is clamp trial this weekend. Her output has been m inimal and her ICPs have been in a satisfactory range. I will call her son, Dawson, at [phone] t o update him. He is flying in from [place] for the weekend.
--- NOTE | 2017-10-17 11:24 | PDOC.PN ---
- Subjective Encounter Start Date: 10/17/17 Encounter Start Time: 08:55 Subjective: on vent off sedation -: opens eyes but does not follow to verbal stimuli - Objective MAR Reviewed: Yes Vital Signs & Weight: Vital Signs (12 hours) Temp Pulse Resp BP 10/17/17 10:22 168/49 H 10/17/17 07:02 62 132/34 L 10/17/17 06:00 19 10/17/17 04:11 69 10/17/17 04:00 19 10/17/17 03:47 88 160/58 H 10/17/17 03:00 98.6 F 10/17/17 02:00 15 10/17/17 00:41 88 160/58 H 10/17/17 00:00 16 Weight Admit Weight 181 lb Weight 191 lb 9.307 oz Most Recent Monitor Data Heart Rate from ECG 74 NIBP 141/39 NIBP BP-Mean 68 Respiration from ECG 22 SpO2 96 I&O: 10/16/17 10/17/17 10/18/17 06:59 06:59 06:59 Intake Total 1453 3165.9 Output Total 1678 943 Balance -225 2222.9 Result Diagrams: 10/17/17 04:35 10/17/17 04:35 Additional Labs: Accuchecks 10/17/17 10/16/17 10/16/17 03:10 21:34 16:24 POC Glucose 153 H 159 H 160 H Phys Exam - Physical Examination HEENT: sclera anicteric right gaze preference Neck: no JVD, supple Respiratory: no wheezing, no rales Cardiovascular: no significant murmur, irregular Gastrointestinal: soft, no distention, positive bowel sounds Musculoskeletal: no edema, pulses present staff have seen her move right extre, has reflex wd to babinski on right Dx/Plan (1) occipital lobe hemorrhage Status: Acute Comment: s/p evacuation with evd, 10/15/2017 (2) Cerebellar hemorrhage, acute Code(s): I61.4 - NONTRAUMATIC INTRACEREBRAL HEMORRHAGE IN CEREBELLUM Status: Acute (3) Acute encephalopathy Code(s): G93.40 - ENCEPHALOPATHY, UNSPECIFIED Status: Acute (4) CVA (cerebral vascular accident) Code(s): I63.9 - CEREBRAL INFARCTION, UNSPECIFIED Status: Suspected Qualifiers: CVA mechanism: unspecified Qualified Code(s): I63.9 - Cerebral infarction, unspecified (5) h/o seizure disorder Status: Chronic (6) Afib Code(s): I48.91 - UNSPECIFIED ATRIAL FIBRILLATION Status: Chronic Qualifiers: Atrial fibrillation type: chronic Qualified Code(s): I48.2 - Chronic atrial fibrillation (7) Sepsis Code(s): A41.9 - SEPSIS, UNSPECIFIED ORGANISM Status: Acute Qualifiers: Sepsis type: sepsis due to unspecified organism Qualified Code(s): A41.9 - Sepsis, unspecified organism (8) PNA (pneumonia) Code(s): J18.9 - PNEUMONIA, UNSPECIFIED ORGANISM Status: Acute Qualifiers: Pneumonia type: due to unspecified organism (9) Dyslipidemia Code(s): E78.5 - HYPERLIPIDEMIA, UNSPECIFIED Status: Chronic (10) HTN (hypertension) Code(s): I10 - ESSENTIAL (PRIMARY) HYPERTENSION Status: Chronic Qualifiers: Hypertension type: essential hypertension Qualified Code(s): I10 - Essential (primary) hypertension (11) h/o right carotid endarterectomy Status: Chronic Comment: 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 Review of Systems - Medications/Allergies Allergies/Adverse Reactions: Allergies Allergy/AdvReac Type Severity Reaction Status Date / Time No Known Drug Allergies Allergy Verified 10/15/17 18:55 Medications: Current Medications Acetaminophen (Tylenol) 650 mg PO Q4H PRN PRN Reason: Headache/Fever or Pain Albuterol/Ipratropium (Duoneb) 3 ml NEB [id number] PRN PRN Reason: SOB &/or Wheezing Atorvastatin Calcium (Lipitor) 20 mg PO HS [facility] Last Admin: 10/16/17 20:43 Dose: 20 mg Carvedilol (Coreg) 12.5 mg PO BID-[facility] Carvedilol (Coreg) 12.5 mg PO NOW ASHLEY Stop: 10/17/17 11:45 Last Admin: 10/17/17 10:22 Dose: 12.5 mg Dextrose/Water (Dextrose 50%) 25 gm SLOW IVP PRN PRN PRN Reason: Hypoglycemia Docusate Sodium (Colace) 100 mg PO BID [facility] Last Admin: 10/17/17 10:22 Dose: 100 mg Famotidine (Pepcid) 20 mg PER TUBE BID [facility] Last Admin: 10/17/17 10:22 Dose: 20 mg Glucagon (Glucagon) 1 mg IM PRN PRN PRN Reason: Hypoglycemia Hydralazine HCl (Apresoline) 20 mg SLOW IVP Q15MIN PRN PRN Reason: Sbp Greater Than 140 Last Admin: 10/17/17 03:47 Dose: 20 mg Dextrose/Water (D5w) 1,000 mls @ 0 mls/hr IV .Q0M PRN; As Directed PRN Reason: Hypoglycemia Cefepime HCl 2 gm/ Sodium (Chloride) 100 mls @ 200 mls/hr IVPB 0100,0900,1700 [facility] Last Admin: 10/17/17 10:21 Dose: 100 mls Sodium Chloride (Normal Saline 0.9% 250 Ml Bag) 250 mls @ 0 mls/hr IVPB ONE PRN ; As Directed PRN Reason: BOLUS IF HYPOTENSIVE Stop: 10/17/17 15:57 Diltiazem HCl 125 mg/Miscellaneous Medication 1 each/ Sodium Chloride 125 mls @ 5 mls/hr IVPB INF [facility] PRN Reason: Protocol Last Admin: 10/17/17 10:23 Dose: 125 mls Vancomycin HCl 1 gm/ Device 200 mls @ 200 mls/hr IVPB Q12HR [facility] Last Admin: 10/17/17 10:25 Dose: 200 mls Potassium Phosphate 30 mmol/ (Sodium Chloride) 510 mls @ 83.3 mls/hr IVPB 1000 [facility] Stop: 10/17/17 12:00 Last Admin: 10/17/17 11:04 Dose: 510 mls Sodium Chloride (Normal Saline 0.9%) 1,000 mls @ 0 mls/hr IV .Q0M [facility] PRN Reason: KVO Insulin Human Regular (Humulin R) 0 units SC .MILD SLIDING SCALE PRN PRN Reason: Mild Correctional Scale Last Admin: 10/17/17 03:09 Dose: 2 unit Labetalol HCl (Normodyne) 20 mg SLOW IVP Q15MIN PRN PRN Reason: Sbp Greater Than 140 Last Admin: 10/17/17 00:41 Dose: 20 mg Lorazepam (Ativan) 2 mg SLOW IVP Q15MIN PRN PRN Reason: Seizures Miscellaneous Medication (Pharmacy To Dose) 0 each IVPB ASDIR ASHLEY Discontinue Previous Narcotic Pain Medications And Benzodiazepines 1 each FS .ONE [facility] Stop: 11/14/17 17:00 Ondansetron HCl (Zofran) 4 mg IVP Q6H PRN PRN Reason: Nausea/Vomiting Potassium Chloride (Klor-Con) 40 meq PO NOW [facility] Stop: 10/17/17 11:45 Last Admin: 10/17/17 10:22 Dose: 40 meq Sodium Chloride (Flush - Normal Saline) 10 ml IVF Q12HR [facility] Last Admin: 10/17/17 10:23 Dose: 10 ml Sodium Chloride (Flush - Normal Saline) 10 ml IVF PRN PRN PRN Reason: Saline Flush
--- NOTE | 2017-10-17 12:55 | RAD ---
ABDOMEN 1 VIEW: HISTORY: Dobbhoff tube placement. FINDINGS/IMPRESSION: The tip of the Dobbhoff tube is in the left hemiabdomen in the projection of the gastric fundus. POS: [facility]
--- NOTE | 2017-10-17 13:05 | PDOC.CTH ---
<MattieKeren - Last Filed: 10/17/17 12:58> Cardiology Progress Note - Subjective The pt seen and examined. No overnight events. She opens her eyes; however, she did not follow any commands at this time. - Objective Vital Signs Temp Pulse Resp BP 10/17/17 11:27 85 162/49 H 10/17/17 10:22 168/49 H 10/17/17 07:02 62 132/34 L 10/17/17 06:00 19 10/17/17 04:11 69 10/17/17 04:00 19 10/17/17 03:47 88 160/58 H 10/17/17 03:00 98.6 F 10/17/17 02:00 15 Admit Weight 181 lb Weight 191 lb 9.307 oz 10/16/17 10/17/17 10/18/17 06:59 06:59 06:59 Intake Total 1453 3165.9 Output Total 1678 943 Balance -225 2222.9 - Physical Examination Neck: carotid US brisk Lungs: other: (coarses and diminished at bases) Heart: RRR Abdomen: soft Extremities: other: (no edema) - Telemetry Telemetry Rhythm: SR 70-80s - Labs Result Diagrams: 10/17/17 04:35 10/17/17 04:35 - Assessment/Plan 1. s/p CVA with suboccipital craniectomy for cerebeller hematoma evacuation on 10/15/17 and obstructive hydrocephalus with external ventricular drains. - She opens her eyes with voice. Managed by neurology service 2. Afib with RVR - Remains in SR with HR 70-80s and intermittent A paced. Not on OAC or ASA due to hx of cerebeller hematoma 3. HTN - Coreg and Lisinopril were started from today. cont. to monitor 4. Biotronic PM - PM interrogation showed normal. 5. DM type 2 - managed by PCP 6. Seizure - stable; managed by PCP/neurology service 7. PNA - managed by PCP/editor index 8. Hx of right carotid endarterectomy - 9. dyslipidemia - On statin MAR reviewed Review of Systems - Review of Systems Constitutional: reports: see HPI EENTM: reports: see HPI Respiratory: reports: see HPI Cardiac (ROS): reports: see HPI ABD/GI: reports: see HPI : reports: see HPI Musculoskeletal: reports: see HPI <Sawyer Robert Garry - Last Filed: 10/17/17 14:54> Cardiology Progress Note - Objective Vital Signs Temp Pulse Pulse Pulse Resp BP BP 10/17/17 13:43 162/49 H 10/17/17 11:27 85 162/49 H 10/17/17 10:56 78 70 157/60 H 10/17/17 10:22 168/49 H 10/17/17 07:02 62 132/34 L 10/17/17 06:00 19 10/17/17 04:11 69 10/17/17 04:00 19 10/17/17 03:47 88 160/58 H 10/17/17 03:00 98.6 F BP Pulse Ox Pulse Ox 10/17/17 13:43 10/17/17 11:27 10/17/17 10:56 158/44 H 90 L 91 L 10/17/17 10:22 10/17/17 07:02 10/17/17 06:00 10/17/17 04:11 10/17/17 04:00 10/17/17 03:47 10/17/17 03:00 Admit Weight 181 lb Weight 191 lb 9.307 oz 10/16/17 10/17/17 10/18/17 06:59 06:59 06:59 Intake Total 1453 3165.9 Output Total 1678 943 Balance -225 2222.9 - Labs Result Diagrams: 10/17/17 04:35 10/17/17 04:35 - Assessment/Plan Pt. seen and eval. I agree with the A/P by the CUSTOMER ADVOCACY MANAGER. No significant changes. Maintaining NSR. exam: RRR, upper airway noise. No edema.
[2017-10-17] MEDS ORDERED: Lisinopril 10 MG TAB PO SCH (13:45)
[2017-10-17] MEDS: Carvedilol 6.25 MG TAB PO SCH (17:23)
[2017-10-17] MEDS: Vancomycin HCl 1.25 GM in Sodium Chloride 0.9% 250 ML 250 ML IVPB SCH (19:33)
[2017-10-18] MEDS: Cefepime 2 GM in Sodium Chloride 0.9% 100 ML IVPB SCH ×3 (00:10→18:08)
[2017-10-18] MEDS: hydrALAZINE 20 MG/ML VIAL SLOW IVP PRN ×3 (01:18→22:04)
[2017-10-18] MEDS: Insulin Regular 300 UNITS/3 ML VIAL SC PRN ×4 (03:12→22:27)
[2017-10-18] MEDS: Labetalol HCl 100 MG/20 ML VIAL SLOW IVP PRN (03:50)
[2017-10-18 05:32] LABS: Anion Gap 8 mmol/L (10-20); BUN (Urea Nitrogen) 19 mg/dL (9.8-20.1); Calc. Creatinine Clearance 96 mL/min (70-130); Carbon Dioxide 22 mmol/L (23-31); Chloride 116 mmol/L (98-107); Estimated GFR-MDRD 90; Glucose 155 mg/dL (83-110); Potassium 3.5 mmol/L (3.5-5.1); Sodium 142 mmol/L (136-145)
[2017-10-18 05:36] LABS: Phosphorus 1.9 mg/dL (2.3-4.7)
[2017-10-18] MEDS: Famotidine 40 MG/5 ML Oral Suspension PER TUBE SCH ×2 (07:48→21:11)
[2017-10-18] MEDS: Carvedilol 6.25 MG TAB PO SCH ×2 (07:48→18:08)
[2017-10-18] MEDS: Lisinopril 10 MG TAB PO SCH (07:49)
[2017-10-18] MEDS: Atorvastatin Calcium 40 MG TAB PO SCH (07:49)
[2017-10-18] MEDS: Docusate 100 MG CAP PO SCH ×2 (07:49→20:51)
[2017-10-18] MEDS: Vancomycin HCl 1 GM in Premix Bag 1 BAG IVPB SCH ×2 (07:50→20:51)
--- NOTE | 2017-10-18 10:44 | PRG ---
DATE OF SERVICE: 10/18/2017 NEUROSURGERY NOTE SUBJECTIVE: Ms. Lr is 3 days out from suboccipital craniectomy and evacuation of cerebellar hemor rhage. Yesterday, she is following commands. Her EVD has been in place since surgery and draining w ell, there is a good waveform. Vital signs show a low-grade temperature of 100.8 as her T-max yester day afternoon. Blood pressures have been in the 130s to 160s. Other vital signs are stable. Ms. Lr has been extubated. There is some rattle with her breasts suggestive of upper airway rhonc hi. With enough stimulus, she begins to move. She is not following commands for me in her upper ext remities or lower extremities, but she is purposeful. She is not opening her eyes for me. We clampe d the drain and her ICPs are in the single digits. She remains on antibiotics including cefepime and vancomycin. My plan today is to watch Ms. Lr's weight backup. If she returns to following commands, then we w ill avoid scanning. If she does not follow commands this morning, we will get a noncontrast CT scan. I will keep the drain clamped it through the weekend opening that only for a prolonged increased in tracranial pressure. Hopefully, we can wean her off the drain and have it out by tomorrow. We will continue to monitor her closely.
--- NOTE | 2017-10-18 11:17 | PRG ---
DATE OF SERVICE: 10/18/2017 SUBJECTIVE: This morning, she is sitting on the side of the bed, aphasic. PHYSICAL EXAMINATION: VITAL SIGNS: Blood pressure is 160/80 in an A-line, sats are 98%, respiration rate 18. CHEST: Decreased breath sounds without any wheezing. CARDIAC: Normal S1, S2, no gallops. ABDOMEN: Soft, no masses. IMPRESSION: 1. Day #3 suboccipital craniotomy for cerebellar hematoma. Status post ICP. 2. Acute cerebrovascular accident. 3. History of seizures. 4. Atrial fibrillation. 5. Pneumonia. PLAN: Continue supportive care, PT. Continue antibiotics. I will discontinue the A-line. We will follow in the ICU.
--- NOTE | 2017-10-18 11:43 | PDOC.PN ---
- Subjective Encounter Start Date: 10/18/17 Encounter Start Time: 10:30 Subjective: opens eyes to verbal stimuli -: not oriented, does not follow verbal stimuli -: is not clearing throat secretions - Objective MAR Reviewed: Yes Vital Signs & Weight: Vital Signs (12 hours) Temp Pulse Resp BP Pulse Ox 10/18/17 08:00 98.5 F 66 14 95 10/18/17 07:49 163/46 H 10/18/17 07:48 165/45 H 10/18/17 03:50 84 10/18/17 03:02 68 10/18/17 03:00 98.5 F 10/18/17 01:18 67 Weight Admit Weight 181 lb Weight 194 lb 14.218 oz Most Recent Monitor Data Heart Rate from ECG 71 NIBP 122/45 NIBP BP-Mean 86 Respiration from ECG 23 SpO2 96 I&O: 10/17/17 10/18/17 10/19/17 06:59 06:59 06:59 Intake Total 3165.9 2957 300 Output Total 943 947 155 Balance 2222.9 2009 145 Result Diagrams: 10/17/17 04:35 10/18/17 04:34 Additional Labs: Accuchecks 10/18/17 10/18/17 10/17/17 10:37 03:13 20:29 POC Glucose 181 H 179 H 227 H 10/17/17 15:38 POC Glucose 166 H Phys Exam - Physical Examination HEENT: PERRLA, sclera anicteric still has right gaze preference Neck: no JVD, supple Respiratory: no wheezing, no rales rhonchi++ Cardiovascular: no significant murmur, irregular Gastrointestinal: soft, positive bowel sounds Musculoskeletal: no edema, pulses present has reflex wd of foot better on right than left Dx/Plan (1) Cerebellar hemorrhage, acute Code(s): I61.4 - NONTRAUMATIC INTRACEREBRAL HEMORRHAGE IN CEREBELLUM Status: Acute Comment: s/p evacuation with evd, 10/15/2017 (2) occipital lobe hemorrhage Status: Acute Comment: s/p evacuation with evd, 10/15/2017 (3) Acute encephalopathy Code(s): G93.40 - ENCEPHALOPATHY, UNSPECIFIED Status: Acute (4) CVA (cerebral vascular accident) Code(s): I63.9 - CEREBRAL INFARCTION, UNSPECIFIED Status: Suspected Qualifiers: CVA mechanism: unspecified Qualified Code(s): I63.9 - Cerebral infarction, unspecified (5) h/o seizure disorder Status: Chronic (6) Afib Code(s): I48.91 - UNSPECIFIED ATRIAL FIBRILLATION Status: Chronic Qualifiers: Atrial fibrillation type: chronic Qualified Code(s): I48.2 - Chronic atrial fibrillation (7) Sepsis Code(s): A41.9 - SEPSIS, UNSPECIFIED ORGANISM Status: Acute Qualifiers: Sepsis type: sepsis due to unspecified organism Qualified Code(s): A41.9 - Sepsis, unspecified organism (8) PNA (pneumonia) Code(s): J18.9 - PNEUMONIA, UNSPECIFIED ORGANISM Status: Acute Qualifiers: Pneumonia type: due to unspecified organism (9) Dyslipidemia Code(s): E78.5 - HYPERLIPIDEMIA, UNSPECIFIED Status: Chronic (10) HTN (hypertension) Code(s): I10 - ESSENTIAL (PRIMARY) HYPERTENSION Status: Chronic Qualifiers: Hypertension type: essential hypertension Qualified Code(s): I10 - Essential (primary) hypertension (11) h/o right carotid endarterectomy Status: Chronic Comment: 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 Review of Systems - Medications/Allergies Allergies/Adverse Reactions: Allergies Allergy/AdvReac Type Severity Reaction Status Date / Time No Known Drug Allergies Allergy Verified 10/15/17 18:55 Medications: Current Medications Acetaminophen (Tylenol) 650 mg PO Q4H PRN PRN Reason: Headache/Fever or Pain Albuterol/Ipratropium (Duoneb) 3 ml NEB [id number] PRN PRN Reason: SOB &/or Wheezing Atorvastatin Calcium (Lipitor) 40 mg PO DAILY [facility] Last Admin: 10/18/17 07:49 Dose: 40 mg Carvedilol (Coreg) 12.5 mg PO BID-[facility] Last Admin: 06/09/18 07:48 Dose: 12.5 mg Dextrose/Water (Dextrose 50%) 25 gm SLOW IVP PRN PRN PRN Reason: Hypoglycemia Docusate Sodium (Colace) 100 mg PO BID [facility] Last Admin: 10/18/17 07:49 Dose: 100 mg Famotidine (Pepcid) 20 mg PER TUBE BID [facility] Last Admin: 10/18/17 07:48 Dose: 20 mg Glucagon (Glucagon) 1 mg IM PRN PRN PRN Reason: Hypoglycemia Hydralazine HCl (Apresoline) 20 mg SLOW IVP Q15MIN PRN PRN Reason: Sbp Greater Than 140 Last Admin: 10/18/17 03:02 Dose: 20 mg Dextrose/Water (D5w) 1,000 mls @ 0 mls/hr IV .Q0M PRN; As Directed PRN Reason: Hypoglycemia Cefepime HCl 2 gm/ Sodium (Chloride) 100 mls @ 200 mls/hr IVPB 0100,0900,1700 [facility] Last Admin: 10/18/17 07:47 Dose: 100 mls Diltiazem HCl 125 mg/Miscellaneous Medication 1 each/ Sodium Chloride 125 mls @ 5 mls/hr IVPB INF [facility] PRN Reason: Protocol Last Admin: 10/17/17 17:54 Dose: 125 mls Vancomycin HCl 1 gm/ Device 200 mls @ 200 mls/hr IVPB Q12HR [facility] Last Admin: 10/18/17 07:50 Dose: 200 mls Sodium Chloride (Normal Saline 0.9%) 1,000 mls @ 0 mls/hr IV .Q0M [facility] PRN Reason: KVO Insulin Human Regular (Humulin R) 0 units SC .MILD SLIDING SCALE PRN PRN Reason: Mild Correctional Scale Last Admin: 10/18/17 10:41 Dose: 2 unit Labetalol HCl (Normodyne) 20 mg SLOW IVP Q15MIN PRN PRN Reason: Sbp Greater Than 140 Last Admin: 10/18/17 03:50 Dose: 20 mg Lisinopril (Zestril) 10 mg PO DAILY [facility] Last Admin: 10/18/17 07:49 Dose: 10 mg Lorazepam (Ativan) 2 mg SLOW IVP Q15MIN PRN PRN Reason: Seizures Miscellaneous Medication (Pharmacy To Dose) 0 each IVPB ASDIR [facility] Discontinue Previous Narcotic Pain Medications And Benzodiazepines 1 each FS .ONE [facility] Stop: 11/14/17 17:00 Ondansetron HCl (Zofran) 4 mg IVP Q6H PRN PRN Reason: Nausea/Vomiting Sodium Chloride (Flush - Normal Saline) 10 ml IVF Q12HR [facility] Last Admin: 10/18/17 07:49 Dose: 10 ml Sodium Chloride (Flush - Normal Saline) 10 ml IVF PRN PRN PRN Reason: Saline Flush
[2017-10-18] MEDS: Amiodarone 200 MG TAB PO SCH ×2 (14:19→20:51)
[2017-10-18 19:08] LABS: Vancomycin, Trough 15.7 ug/mL
[2017-10-19] MEDS: hydrALAZINE 20 MG/ML VIAL SLOW IVP PRN ×3 (00:05→13:50)
[2017-10-19] MEDS: Cefepime 2 GM in Sodium Chloride 0.9% 100 ML IVPB SCH ×3 (00:05→17:00)
[2017-10-19] MEDS: Labetalol HCl 100 MG/20 ML VIAL SLOW IVP PRN ×6 (01:09→22:08)
[2017-10-19 05:52] LABS: Anion Gap 10 mmol/L (10-20); BUN (Urea Nitrogen) 26 mg/dL (9.8-20.1); Calc. Creatinine Clearance 82 mL/min (70-130); Calcium 8.4 mg/dL (7.8-10.44); Carbon Dioxide 23 mmol/L (23-31); Chloride 113 mmol/L (98-107); Estimated GFR-MDRD 75; Glucose 212 mg/dL (83-110); Phosphorus 2.7 mg/dL (2.3-4.7); Sodium 142 mmol/L (136-145)
[2017-10-19] MEDS: Insulin Regular 300 UNITS/3 ML VIAL SC PRN ×4 (06:42→22:05)
--- NOTE | 2017-10-19 07:49 | CT ---
CT HEAD NONCONTRAST: HISTORY: Intracranial hemorrhage with ventriculostomy catheter in place. Followup. COMPARISON: 10/16/17. FINDINGS: Ventricles are decompressed. A small amount of intraventricular hemorrhage remains. Right frontal v entriculostomy catheter unchanged in condition. Pneumocephalus has decreased slightly. Widespread s ubarachnoid hemorrhage is slightly improved. Intraparenchymal hematoma at the left occipital lobe is unchanged. The acute hematoma at the left cerebellar hemisphere has been nearly completely evacuate d with some residual gas and fluid. IMPRESSION: 1. Interval removal or disappearance of the majority of the left cerebellar hematoma. 2. Ventriculostomy catheter and intraventricular hemorrhage are unchanged. No evidence of hydroceph alus. POS: [facility]
[2017-10-19] MEDS: Carvedilol 6.25 MG TAB PO SCH ×2 (08:18→17:00)
[2017-10-19] MEDS: Atorvastatin Calcium 40 MG TAB PO SCH (08:19)
[2017-10-19] MEDS: Amiodarone 200 MG TAB PO SCH ×3 (08:19→20:19)
[2017-10-19] MEDS: Docusate 100 MG CAP PO SCH ×2 (08:19→20:19)
--- NOTE | 2017-10-19 08:20 | PRG ---
DATE OF SERVICE: 10/19/2017 NEUROSURGERY NOTE SUBJECTIVE: Ms. Lr is 4 days out from suboccipital craniectomy and evacuation of cerebellar hemor rhage after TPA treatment on top of Pradaxa use. Ms. Lr had a relatively uneventful night in the ICU. Intermittently, she will wake enough to foll ow commands. Her son arrived from out of town yesterday and she did say a word or two to him, per nu ing reports. This morning, I noticed that the ventricular drain has been clamped since we saw her yesterday. The recorded ICPs are in the single digits with a couple of exceptions. The drain never had to be opened , however. For me, Ms. Lr is arousable. She barely opens an eye to stimulus. She says she produces some kuldip se, but no words. She wiggles her toes for me to command, but I could not reliably get her to squeez e my hand. My plan today is to try to get the drain out. It has been 24 hours since we drained it, the pressure s have been low. Postoperative CT scan still showed some obscuration of the fourth ventricle in its lower half and therefore I will get a scan today to make sure it is not any worse. If it is the same as or better than her postoperative scan, then we can consider getting this drain out. If it is sli ghtly worse, we will leave it in for tomorrow, but keep it clamped.
[2017-10-19] MEDS: Famotidine 40 MG/5 ML Oral Suspension PER TUBE SCH ×2 (08:24→20:46)
[2017-10-19] MEDS: Lisinopril 10 MG TAB PO SCH (08:29)
[2017-10-19] MEDS: Vancomycin HCl 1 GM in Premix Bag 1 BAG IVPB SCH ×2 (08:46→20:19)
--- NOTE | 2017-10-19 09:21 | ULT ---
RIGHT AND LEFT LOWER EXTREMITY VENOUS DOPPLER ULTRASOUND EVALUATION: HISTORY: Immobility and lower extremity edema. FINDINGS: Multiple longitudinal and transverse images of the right and left lower extremity venous systems are obtained using a multihertz linear ray transducer. Real-time, color flow, and spectral waveform Dopp ler analysis demonstrates no evidence of acute or old clot seen in the right or left common femoral, superficial femoral, femoral profunda, popliteal, posterior tibial vein, post trifurcation veins, and right and left greater saphenous veins. IMPRESSION: No evidence of right or left lower extremity deep venous thrombosis. POS: [facility]
--- NOTE | 2017-10-19 11:08 | PDOC.PN ---
- Subjective Encounter Start Date: 10/19/17 Encounter Start Time: 09:45 Subjective: opens eyes to touch/verbal stimuli -: is not seen moving extremities to verbal stimuli - Objective MAR Reviewed: Yes Vital Signs & Weight: Vital Signs (12 hours) Temp Pulse Resp BP Pulse Ox 10/19/17 08:29 158/45 H 10/19/17 08:18 158/45 H 10/19/17 08:00 98.9 F 71 20 96 10/19/17 07:00 98.9 F 10/19/17 06:40 64 158/45 H 10/19/17 06:37 98 10/19/17 06:34 64 21 H 98 10/19/17 04:20 72 154/51 H 10/19/17 04:00 99.3 F 10/19/17 01:09 72 161/45 H 10/19/17 00:15 63 20 97 10/19/17 00:05 66 151/36 H 10/19/17 00:00 98.4 F Weight Admit Weight 181 lb Weight 194 lb 7.163 oz Most Recent Monitor Data Heart Rate from ECG 71 NIBP 148/38 NIBP BP-Mean 50 Respiration from ECG 21 SpO2 96 I&O: 10/18/17 10/19/17 10/20/17 06:59 06:59 06:59 Intake Total 2957 2197 120 Output Total 947 835 205 Balance 2009 1362 -85 Result Diagrams: 10/17/17 04:35 10/19/17 04:30 Additional Labs: Accuchecks 10/19/17 10/18/17 10/18/17 10:03 22:28 18:07 POC Glucose 205 H 154 H 171 H Phys Exam - Physical Examination HEENT: sclera anicteric right eye has fixed right upward gaze, left is midline now Neck: no JVD, supple Respiratory: no wheezing, no rales rhonchi+ Cardiovascular: no significant murmur, irregular Gastrointestinal: soft, non-tender, positive bowel sounds Musculoskeletal: no edema, pulses present has reflex wd to babinski Dx/Plan (1) Cerebellar hemorrhage, acute Code(s): I61.4 - NONTRAUMATIC INTRACEREBRAL HEMORRHAGE IN CEREBELLUM Status: Acute Comment: s/p evacuation with evd on 10/15/2017, evd removal on 10/19/2017 (2) occipital lobe hemorrhage Status: Acute Comment: s/p evacuation with evd, 10/15/2017 (3) Acute encephalopathy Code(s): G93.40 - ENCEPHALOPATHY, UNSPECIFIED Status: Acute (4) CVA (cerebral vascular accident) Code(s): I63.9 - CEREBRAL INFARCTION, UNSPECIFIED Status: Suspected Qualifiers: CVA mechanism: unspecified Qualified Code(s): I63.9 - Cerebral infarction, unspecified (5) h/o seizure disorder Status: Chronic (6) Afib Code(s): I48.91 - UNSPECIFIED ATRIAL FIBRILLATION Status: Chronic Qualifiers: Atrial fibrillation type: chronic Qualified Code(s): I48.2 - Chronic atrial fibrillation (7) Sepsis Code(s): A41.9 - SEPSIS, UNSPECIFIED ORGANISM Status: Acute Qualifiers: Sepsis type: sepsis due to unspecified organism Qualified Code(s): A41.9 - Sepsis, unspecified organism (8) PNA (pneumonia) Code(s): J18.9 - PNEUMONIA, UNSPECIFIED ORGANISM Status: Acute Qualifiers: Pneumonia type: due to unspecified organism (9) Dyslipidemia Code(s): E78.5 - HYPERLIPIDEMIA, UNSPECIFIED Status: Chronic (10) HTN (hypertension) Code(s): I10 - ESSENTIAL (PRIMARY) HYPERTENSION Status: Chronic Qualifiers: Hypertension type: essential hypertension Qualified Code(s): I10 - Essential (primary) hypertension (11) h/o right carotid endarterectomy Status: Chronic Comment: done in 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 On oral amiodarone, coreg, lisinopril and lipitor ng feeding. Needs to wake up more for PT to work with. Prognosis guarded. Review of Systems - Medications/Allergies Allergies/Adverse Reactions: Allergies Allergy/AdvReac Type Severity Reaction Status Date / Time No Known Drug Allergies Allergy Verified 10/15/17 18:55 Medications: Current Medications Acetaminophen (Tylenol) 650 mg PO Q4H PRN PRN Reason: Headache/Fever or Pain Albuterol/Ipratropium (Duoneb) 3 ml NEB [id number] PRN PRN Reason: SOB &/or Wheezing Albuterol/Ipratropium (Duoneb) 3 ml NEB [id number] [facility] Last Admin: 10/19/17 06:34 Dose: 3 ml Amiodarone HCl (Cordarone) 400 mg PO TID [facility] Last Admin: 10/19/17 08:19 Dose: 400 mg Atorvastatin Calcium (Lipitor) 40 mg PO DAILY [facility] Last Admin: 10/19/17 08:19 Dose: 40 mg Carvedilol (Coreg) 12.5 mg PO BID-[facility] Last Admin: 10/19/17 08:18 Dose: 12.5 mg Dextrose/Water (Dextrose 50%) 25 gm SLOW IVP PRN PRN PRN Reason: Hypoglycemia Docusate Sodium (Colace) 100 mg PO BID [facility] Last Admin: 10/19/17 08:19 Dose: 100 mg Famotidine (Pepcid) 20 mg PER TUBE BID [facility] Last Admin: 10/19/17 08:24 Dose: 20 mg Glucagon (Glucagon) 1 mg IM PRN PRN PRN Reason: Hypoglycemia Hydralazine HCl (Apresoline) 20 mg SLOW IVP Q15MIN PRN PRN Reason: Sbp Greater Than 140 Last Admin: 10/19/17 06:40 Dose: 20 mg Dextrose/Water (D5w) 1,000 mls @ 0 mls/hr IV .Q0M PRN; As Directed PRN Reason: Hypoglycemia Cefepime HCl 2 gm/ Sodium (Chloride) 100 mls @ 200 mls/hr IVPB 0100,0900,1700 [facility] Last Admin: 10/19/17 08:19 Dose: 100 mls Vancomycin HCl 1 gm/ Device 200 mls @ 200 mls/hr IVPB Q12HR [facility] Last Admin: 10/19/17 08:46 Dose: 200 mls Sodium Chloride (Normal Saline 0.9%) 1,000 mls @ 0 mls/hr IV .Q0M [facility] PRN Reason: KVO Insulin Human Regular (Humulin R) 0 units SC .MILD SLIDING SCALE PRN PRN Reason: Mild Correctional Scale Last Admin: 10/19/17 10:56 Dose: 3 unit Labetalol HCl (Normodyne) 20 mg SLOW IVP Q15MIN PRN PRN Reason: Sbp Greater Than 140 Last Admin: 10/19/17 04:20 Dose: 20 mg Lisinopril (Zestril) 10 mg PO DAILY [facility] Last Admin: 10/19/17 08:29 Dose: 10 mg Lorazepam (Ativan) 2 mg SLOW IVP Q15MIN PRN PRN Reason: Seizures Miscellaneous Medication (Pharmacy To Dose) 0 each IVPB ASDIR [facility] Discontinue Previous Narcotic Pain Medications And Benzodiazepines 1 each FS .ONE [facility] Stop: 11/14/17 17:00 Ondansetron HCl (Zofran) 4 mg IVP Q6H PRN PRN Reason: Nausea/Vomiting Sodium Chloride (Flush - Normal Saline) 10 ml IVF Q12HR [facility] Last Admin: 10/19/17 08:46 Dose: 10 ml Sodium Chloride (Flush - Normal Saline) 10 ml IVF PRN PRN PRN Reason: Saline Flush
--- NOTE | 2017-10-19 11:51 | PRG ---
DATE OF SERVICE: 10/19/2017 SUBJECTIVE: This morning, still remains encephalopathic. OBJECTIVE: VITAL SIGNS: Blood pressure 144/49, sats are 95% on 4 liters, respirations 23, pulse 74, temperature 98. CHEST: Chest reveals extensive rhonchi and crackles. CARDIAC: Normal S1, S2, no gallops. ABDOMEN: Soft, without any masses. IMAGING: She had a CT done of the brain, which showed decrease in the cerebellar hematoma. She had a venogram done this morning, which showed no evidence of DVT. IMPRESSION: 1. Status post craniotomy, intracerebral hemorrhage. 2. Retained secretions. PLAN: Continue antibiotics, nebulizer treatment. Supportive care, antibiotics as prescribed. She may need frequent suctioning, may be a therapeutic b ronchoscopy. We will follow.
[2017-10-20] MEDS: Labetalol HCl 100 MG/20 ML VIAL SLOW IVP PRN ×5 (01:03→17:13)
[2017-10-20] MEDS: Cefepime 2 GM in Sodium Chloride 0.9% 100 ML IVPB SCH ×3 (01:04→16:17)
[2017-10-20] MEDS: hydrALAZINE 20 MG/ML VIAL SLOW IVP PRN ×4 (04:10→23:35)
[2017-10-20] MEDS: Insulin Regular 300 UNITS/3 ML VIAL SC PRN ×3 (04:59→16:27)
[2017-10-20 05:23] LABS: Anion Gap 9 mmol/L (10-20); BUN (Urea Nitrogen) 26 mg/dL (9.8-20.1); Calc. Creatinine Clearance 82 mL/min (70-130); Calcium 8.2 mg/dL (7.8-10.44); Carbon Dioxide 23 mmol/L (23-31); Chloride 112 mmol/L (98-107); Estimated GFR-MDRD 75; Glucose 206 mg/dL (83-110); Phosphorus 2.9 mg/dL (2.3-4.7); Potassium 3.9 mmol/L (3.5-5.1); Sodium 140 mmol/L (136-145)
[2017-10-20 07:22] LABS: Vancomycin, Trough 19.7 ug/mL
[2017-10-20] MEDS: Carvedilol 6.25 MG TAB PO SCH ×2 (07:57→16:16)
[2017-10-20] MEDS: Docusate 100 MG CAP PO SCH ×2 (08:01→20:48)
[2017-10-20] MEDS: Famotidine 40 MG/5 ML Oral Suspension PER TUBE SCH ×2 (08:01→20:53)
[2017-10-20] MEDS: Lisinopril 10 MG TAB PO SCH (08:02)
[2017-10-20] MEDS: Atorvastatin Calcium 40 MG TAB PO SCH (08:02)
[2017-10-20] MEDS: Amiodarone 200 MG TAB PO SCH ×3 (08:02→20:48)
[2017-10-20] MEDS: Vancomycin HCl 1 GM in Premix Bag 1 BAG IVPB SCH ×2 (08:47→20:49)
--- NOTE | 2017-10-20 09:28 | PRG ---
DATE OF SERVICE: 10/20/2017 Ms. Lr is now postoperative day #5, having undergone left-sided hematoma evacuation in the left ce rebellar region. The patient remains more or less at neurologic baseline, although she is up sitting in a neuro chair. Her EVD was removed yesterday and the area at the EVD incision is closed with sta ples without evidence of drainage. However, it is pulsatile. Her neurologic exam is waxing and cameron ng. At this time she is unable to open her eyes to command, but will withdraw to noxious stimulus in all 4 extremities. She is not currently following commands. According to nursing staff she will oc casionally say a few words to her son and intermittently follows commands, but again I cannot get her to do this at this time. Her incision is clean, dry, and intact without any evidence of drainage. She also had a bilateral lower extremity ultrasound yesterday that was negative for DVT. Her blood p ressure remained an issue and she is still on hydralazine with ranges from 140s to 160s systolic. True zee is continued on cefepime and vancomycin for probable aspiration pneumonia. I will attempt to updat e her son later today, although I know that he has been visiting her and is in from [place]. Her prog nosis remains guarded. However, at this time she is stable. We will hope as she becomes more awake that she can work more with therapies. Please call with any questions or changes in the patient's ne urologic status.
--- NOTE | 2017-10-20 09:51 | PRG ---
DATE OF SERVICE: 10/20/2017 SERVICE: Pulmonary Medicine INTERVAL HISTORY: The patient is doing fine from a cardiovascular standpoint. Respiratory warner, she is not sensing the crud that is in the back of her throat. She has to be NG suctioned frequently in order to prevent her from aspirating material. Neurologically, she has not had much interval change compared to yesterday. PHYSICAL EXAMINATION: VITAL SIGNS: Afebrile, pulse 69, blood pressure 145/44, respirations 22, saturation 97% on 2 liters nasal cannula. GENERAL: Patient is somnolent. HEENT: Normocephalic, atraumatic. Sclerae are white, conjunctivae pink. Oral mucosa is moist witho ut lesions. LUNGS: Rhonchi are present. No wheezing or crackles are appreciated. There is no prolonged expirat ory phase. HEART: Normal rate, regular. ABDOMEN: Soft, nontender, nondistended. Bowel sounds are positive. MUSCULOSKELETAL: No cyanosis or clubbing. There is no pitting in the bilateral lower extremities. LABORATORY DATA: WBC 15.2, hemoglobin 9.5, platelets 182,000. INR 1.3. Creatinine 0.74, BUN 26. B asic metabolic profile is otherwise unremarkable. Phosphorus 2.9. IMAGIN. Ultrasound of bilateral lower extremities demonstrates no evidence of DVT. 2. CT of the brain from yesterday demonstrates interval removal of the majority of the left cerebell ar hematoma. Ventriculostomy catheter and intraventricular hemorrhage are otherwise unchanged. No e vidence of hydrocephalus. ASSESSMENT: 1. Cerebrovascular accident, status post t-PA with subsequent hemorrhagic conversion, status post cr aniotomy, postoperative day #5. 2. Acute hypoxic respiratory failure. 3. Severe sepsis. 4. Community-acquired pneumonia. 5. Type 2 diabetes mellitus. 6. Atrial fibrillation with rapid ventricular response, converted to sinus rhythm. 7. Encephalopathy secondary to large stroke, DISCUSSION AND PLAN: I had a conversation with the patient's son. We were able to review her advanc ed directive. At this point, I do believe it would be in keeping with the patient's values to transi tion her over to a DNI/DNR patient. That being said, we will continue aggressive maneuvers for the n ext couple of weeks. If quality of life is not reestablished within 4-6 weeks, the patient's family will likely transition over to comfort care only. For the time being, however, the patient is a firm DNI/DNR.
--- NOTE | 2017-10-20 10:29 | PDOC.PN ---
- Subjective Encounter Start Date: 10/20/17 Encounter Start Time: 11:45 Subjective: Patient unchanged. Still non-verbal. Not following any commands today -: per family at bedside, just pushed respiratory away when they try to -: suction throat. - Objective Resuscitation Status: Resuscitation Status DNR:Do Not Resuscitate MAR Reviewed: Yes Vital Signs & Weight: Vital Signs (12 hours) Temp Pulse Resp BP Pulse Ox 10/20/17 10:12 96 10/20/17 10:10 64 20 96 10/20/17 08:52 153/51 H 10/20/17 08:02 153/51 H 10/20/17 08:00 98.5 F 74 24 H 95 10/20/17 07:57 153/51 H 10/20/17 07:00 98.5 F 10/20/17 04:10 63 153/51 H 10/20/17 04:00 98.4 F 10/20/17 03:14 71 164/50 H 10/20/17 01:03 73 168/58 H 10/20/17 00:09 63 26 H 95 10/20/17 00:00 99.2 F Weight Admit Weight 181 lb Weight 195 lb 1.745 oz Most Recent Monitor Data Heart Rate from ECG 63 NIBP 149/51 NIBP BP-Mean 95 Respiration from ECG 21 SpO2 97 I&O: 10/19/17 10/20/17 10/21/17 06:59 06:59 06:59 Intake Total 2197 2692 Output Total 835 1040 125 Balance 1362 1652 -125 Result Diagrams: 10/17/17 04:35 10/20/17 04:45 Additional Labs: Accuchecks 10/20/17 10/20/17 10/19/17 10:05 04:56 22:06 POC Glucose 212 H 202 H 206 H 10/19/17 15:16 POC Glucose 151 H Phys Exam - Physical Examination HEENT: moist MMs Neck: no nodes coarse upper airway noises from oral secretions Cardiovascular: RRR, no significant murmur Gastrointestinal: soft, positive bowel sounds Musculoskeletal: no edema pushes back against me bilaterally when I move her limbs, no movement to command Deviation from normal: unresponsive to verbal, moves some but no eye opening to painful stimulatio Dx/Plan (1) Cerebellar hemorrhage, acute Code(s): I61.4 - NONTRAUMATIC INTRACEREBRAL HEMORRHAGE IN CEREBELLUM Status: Acute Comment: s/p evacuation with evd on 10/15/2017, evd removal on 10/19/2017 (2) occipital lobe hemorrhage Status: Acute Comment: s/p evacuation with evd, 10/15/2017 (3) Acute encephalopathy Code(s): G93.40 - ENCEPHALOPATHY, UNSPECIFIED Status: Acute (4) h/o seizure disorder Status: Chronic (5) Afib Code(s): I48.91 - UNSPECIFIED ATRIAL FIBRILLATION Status: Chronic Qualifiers: Atrial fibrillation type: chronic Qualified Code(s): I48.2 - Chronic atrial fibrillation (6) Sepsis Code(s): A41.9 - SEPSIS, UNSPECIFIED ORGANISM Status: Acute Qualifiers: Sepsis type: sepsis due to unspecified organism Qualified Code(s): A41.9 - Sepsis, unspecified organism (7) PNA (pneumonia) Code(s): J18.9 - PNEUMONIA, UNSPECIFIED ORGANISM Status: Acute Qualifiers: Pneumonia type: due to unspecified organism (8) Dyslipidemia Code(s): E78.5 - HYPERLIPIDEMIA, UNSPECIFIED Status: Chronic (9) HTN (hypertension) Code(s): I10 - ESSENTIAL (PRIMARY) HYPERTENSION Status: Chronic Qualifiers: Hypertension type: essential hypertension Qualified Code(s): I10 - Essential (primary) hypertension (10) h/o aphasia with prior cva Status: Chronic Comment: in 2017 which completely improved per Dr.Shanon Iverson-PCP (11) h/o right carotid endarterectomy Status: Chronic Comment: done in 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 - Discharge Day Encounter end time: 11:55
--- NOTE | 2017-10-20 11:42 | PDOC.CTH ---
<Keren Phelps - Last Filed: 10/20/17 11:40> Cardiology Progress Note - Subjective The pt seen and examined. No overnight events. She is DNR. Family at bedside. Reimposes to pain stimulation. - Objective Vital Signs Temp Pulse Resp BP Pulse Ox 10/20/17 11:00 98.5 F 10/20/17 10:51 64 10/20/17 10:12 96 10/20/17 10:10 64 20 96 10/20/17 08:52 153/51 H 10/20/17 08:02 153/51 H 10/20/17 08:00 98.5 F 74 24 H 95 10/20/17 07:57 153/51 H 10/20/17 07:00 98.5 F 10/20/17 04:10 63 153/51 H 10/20/17 04:00 98.4 F 10/20/17 03:14 71 164/50 H 10/20/17 01:03 73 168/58 H 10/20/17 00:09 63 26 H 95 10/20/17 00:00 99.2 F Admit Weight 181 lb Weight 195 lb 1.745 oz 10/19/17 10/20/17 10/21/17 06:59 06:59 06:59 Intake Total 2197 2692 Output Total 835 1040 155 Balance 1362 1652 -155 - Physical Examination Neck: carotid US brisk Lungs: other: (coarses and diminihsed at bases) Heart: RRR Abdomen: soft Extremities: other: (Generalized edema) - Telemetry Telemetry Rhythm: Afib 70-80s - Labs Result Diagrams: 10/17/17 04:35 10/20/17 04:45 - Assessment/Plan 1. s/p CVA with suboccipital craniectomy for cerebeller hematoma evacuation on 10/15/17 and obstructive hydrocephalus with external ventricular drains. - Drain was d/nelly on 10/19/17. Managed by neurology service 2. Afib with RVR - Remains in Afib with HR 70-80s and intermittent A paced with Amiodarone 400mg TID. Not on OAC or ASA due to hx of cerebeller hematoma 3. HTN - Increase Lisinopril to 20mg BID to keep SBP < 140. Cont. to monitor 4. Biotronic PM - PM interrogation showed normal. 5. DM type 2 - managed by PCP 6. Seizure - stable; managed by PCP/neurology service 7. PNA - managed by PCP/rn radiology 8. Hx of right carotid endarterectomy - 9. dyslipidemia - On statin MAR reviewed Review of Systems - Review of Systems Constitutional: reports: see HPI EENTM: reports: see HPI Respiratory: reports: see HPI Cardiac (ROS): reports: see HPI ABD/GI: reports: see HPI : reports: see HPI <Sawyer Robert - Last Filed: 10/20/17 18:47> Cardiology Progress Note - Objective Vital Signs Temp Pulse Pulse Pulse Resp BP BP 10/20/17 17:13 153/51 H 10/20/17 16:16 153/51 H 10/20/17 15:23 64 16 10/20/17 15:00 98.7 F 10/20/17 13:21 153/51 H 10/20/17 11:58 153/51 H 10/20/17 11:00 98.5 F 10/20/17 10:51 64 10/20/17 10:20 67 66 153/50 H 10/20/17 10:12 10/20/17 10:10 64 20 10/20/17 08:52 153/51 H 10/20/17 08:02 153/51 H 10/20/17 08:00 98.5 F 74 24 H 10/20/17 07:57 153/51 H 10/20/17 07:00 98.5 F BP Pulse Ox Pulse Ox Pulse Ox 10/20/17 17:13 10/20/17 16:16 10/20/17 15:23 97 10/20/17 15:00 10/20/17 13:21 10/20/17 11:58 10/20/17 11:00 10/20/17 10:51 10/20/17 10:20 152/39 H 95 95 10/20/17 10:12 96 10/20/17 10:10 96 10/20/17 08:52 10/20/17 08:02 10/20/17 08:00 95 10/20/17 07:57 10/20/17 07:00 Admit Weight 181 lb Weight 195 lb 1.745 oz 10/19/17 10/20/17 10/21/17 06:59 06:59 06:59 Intake Total 2197 2692 1405 Output Total 835 1040 415 Balance 1362 1652 990 - Labs Result Diagrams: 10/17/17 04:35 10/20/17 04:45 - Assessment/Plan pt. seen and eval. by me. Essentially unresponsive. Pt is now DNR. She remains in NSR. Continue amiodarone via [place]. I will sign off. If pt survives over the next few days then taper amiodarone after a week to 200 mg bid.
[2017-10-20] MEDS ORDERED: Lisinopril 10 MG TAB PO SCH (11:45)
[2017-10-20] MEDS: Lisinopril 20 MG TAB PO SCH (20:00)
[2017-10-21] MEDS: Cefepime 2 GM in Sodium Chloride 0.9% 100 ML IVPB SCH ×3 (00:15→17:09)
[2017-10-21] MEDS: Acetaminophen 325 MG TAB PO PRN (03:29)
[2017-10-21] MEDS: hydrALAZINE 20 MG/ML VIAL SLOW IVP PRN ×2 (03:30→23:49)
[2017-10-21] MEDS: Insulin Regular 300 UNITS/3 ML VIAL SC PRN ×3 (04:18→23:13)
[2017-10-21 05:18] LABS: Anion Gap 10 mmol/L (10-20); BUN (Urea Nitrogen) 25 mg/dL (9.8-20.1); Calc. Creatinine Clearance 92 mL/min (70-130); Calcium 8.1 mg/dL (7.8-10.44); Carbon Dioxide 24 mmol/L (23-31); Chloride 110 mmol/L (98-107); Estimated GFR-MDRD 86; Glucose 136 mg/dL (83-110); Potassium 3.9 mmol/L (3.5-5.1); Sodium 140 mmol/L (136-145)
[2017-10-21 05:34] LABS: Hemoglobin 8.5 g/dL (12.0-16.0); Mean Corpuscular HGB CONC 33.6 g/dL (32.0-36.0); Mean Corpuscular Hemoglobin 31.6 pg (27.0-31.0); Mean Corpuscular Volume 94.2 fl (81.0-99.0); Mean Platelet Volume 7.4 fL (7.4-10.4); Platelet Count 216 thou/uL (130-400); RBC Distribution Width 12.2 % (11.5-14.5); Red Blood Cell (RBC) Count 2.69 mill/uL (4.20-5.40); White Blood Cell (WBC) Count 14.5 thou/uL (4.8-10.8)
[2017-10-21 05:35] LABS: Band 1 % (5-11); Lymphocytes 6 % (21-51); MDiff Complete? YES; Monocytes 7 % (0-10); Neutrophil 86 % (42-75)
[2017-10-21] MEDS: Carvedilol 6.25 MG TAB PO SCH ×2 (08:00→20:49)
[2017-10-21] MEDS: Docusate 100 MG CAP PO SCH ×2 (08:01→20:50)
[2017-10-21] MEDS: Lisinopril 20 MG TAB PO SCH ×2 (08:01→20:49)
[2017-10-21] MEDS: Atorvastatin Calcium 40 MG TAB PO SCH (08:02)
[2017-10-21] MEDS: Amiodarone 200 MG TAB PO SCH ×3 (08:04→20:50)
[2017-10-21] MEDS: Famotidine 40 MG/5 ML Oral Suspension PER TUBE SCH ×2 (08:07→20:50)
[2017-10-21] MEDS: Vancomycin HCl 1 GM in Premix Bag 1 BAG IVPB SCH ×2 (09:30→20:50)
--- NOTE | 2017-10-21 10:07 | PRG ---
DATE OF SERVICE: 10/21/2017 Ms. Lr continues to recover following her occipital craniectomy for cerebellar hematoma evacuation and EVD placement for hydrocephalus. The EVD has been weaned. Her imaging has demonstrated improve ment in the ventricular caliber and reduction in the hematoma and stability of the left occipital lob e hemorrhage. Overall, neurologically she has waxing and waning. This morning she opens her eyes to voice and follows commands in her upper extremities. She maintains eye contact, but is nonverbal. She has periods where she will have decreased level of alertness. The biggest issue at this point is managing secretions due to aspiration pneumonia. Her white blood cell count is trending down to 14. 5 with a high of 26.2 six days ago. She is on antibiotics. She is requiring a nasotracheal suctioni ng. She notes she is afebrile. Her family has arrived as well. They are not here today, but we spo ke with her son, Dawson, yesterday. I will attempt to return between surgeries today to again meet up with him. She has been made DNR.
--- NOTE | 2017-10-21 11:47 | PRG ---
DATE OF SERVICE: 10/21/2017 SERVICE: Pulmonary Medicine. INTERVAL HISTORY: The patient is doing fine from a respiratory standpoint. Today, she has been much more alert and talkative. She is able to answer questions appropriately. For the most part, she re sponds in 1-2 word sentences, but they are making sense. She is asking appropriate questions. Other warner, there has been no interval change to her condition. She continues to have a rattle in the back of her throat. That being said, she is requiring NT suctioning a little less frequently. PHYSICAL EXAMINATION: VITAL SIGNS: Afebrile, pulse 63, blood pressure 131/42, respirations 16, saturation 96% on 2.5 liter s nasal cannula. GENERAL: Patient is awake, but somnolent. She is in no apparent distress. LUNGS: Rhonchi are present, but mostly transmitted from the upper airway. There is no prolonged exp iratory phase or wheezing present. HEART: Normal rate, regular. ABDOMEN: Soft, nontender, nondistended. Bowel sounds are positive. MUSCULOSKELETAL: No cyanosis or clubbing. There is no pitting in the bilateral lower extremities. LABORATORY DATA: WBC 14.5, hemoglobin 8.5 and down trending. Platelets 216,000, neutrophils 86% wit h a 1% band count (dropping nicely). INR 1.3. Creatinine 0.66 and stable, BUN 25 and stable. Basic metabolic profile is otherwise unremarkable. Magnesium 2.0. Urinalysis is unremarkable. ASSESSMENT: 1. 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 2. Acute hypoxic respiratory failure. 3. Community-acquired pneumonia. 4. Severe sepsis. 5. Type 2 diabetes mellitus. 6. Atrial fibrillation with rapid ventricular response, currently sinus rhythm. 7. Encephalopathy secondary to large stroke. 8. Anemia. DISCUSSION AND PLAN: The patient's hemoglobin is dropping off a little bit, but we do not see any ob vious evidence of bleeding. The patient will likely need to transition to an LTAC facility. At that location, they can probably handle and a small bore feeding tube. If the patient fails to progress to the point where she has quality existence in 6 weeks, the patient's family is likely going to estrada sition over comfort care only. That being said, until that time, they would like to pursue aggressiv e measures. We will repeat a hemoglobin tomorrow morning.
--- NOTE | 2017-10-21 21:00 | PDOC.PN ---
- Subjective Encounter Start Date: 10/21/17 Encounter Start Time: 12:30 Subjective: f/u for CVA with hemorrhagic conversion post t-Pa and EVD with subsequent -: removal. Receiving TF's Jevity 1.2 and mild response neurologically - Objective Resuscitation Status: Resuscitation Status DNR:Do Not Resuscitate MAR Reviewed: Yes Vital Signs & Weight: Vital Signs (12 hours) Temp Pulse Pulse Pulse Resp BP BP 10/21/17 20:49 145/39 H 10/21/17 20:00 98.1 F 10/21/17 18:55 68 22 H 10/21/17 16:00 98.1 F 10/21/17 14:46 66 19 10/21/17 14:14 69 67 139/44 L 10/21/17 12:00 98.2 F BP Pulse Ox Pulse Ox Pulse Ox 10/21/17 20:49 10/21/17 20:00 10/21/17 18:55 99 10/21/17 16:00 10/21/17 14:46 98 10/21/17 14:14 132/44 L 92 L 93 L 10/21/17 12:00 Weight Admit Weight 181 lb Weight 194 lb 10.691 oz Most Recent Monitor Data Heart Rate from ECG 68 NIBP 145/39 NIBP BP-Mean 112 Respiration from ECG 17 SpO2 98 I&O: 10/20/17 10/21/17 10/22/17 06:59 06:59 06:59 Intake Total 2692 3187 1413 Output Total 1040 885 485 Balance 1652 2302 928 Result Diagrams: 10/21/17 04:00 10/21/17 04:00 Additional Labs: Accuchecks 10/21/17 10/21/17 10/21/17 16:29 10:42 04:16 POC Glucose 153 H 185 H 160 H 10/20/17 23:23 POC Glucose 144 H Laboratory Tests 10/15/17 10/16/17 10/17/17 05:40 04:20 04:35 WBC 26.2 H 24.5 H 15.2 H Hgb 11.8 L 9.5 L Magnesium Vancomycin Trough 10/17/17 10/18/17 10/20/17 06:54 18:31 06:56 WBC Hgb Magnesium Vancomycin Trough 7.5 15.7 19.7 10/21/17 04:00 WBC Hgb Magnesium 2.0 Vancomycin Trough Radiology Reviewed by me: Yes (CT brain 10/19/17 - decreased L cerebellar hematoma) EKG Reviewed by me: Yes (Tele - SR) Phys Exam - Physical Examination R nares with Dobhoff feeding tube in place horizontal nystagmus HEENT: PERRLA, oral pharynx no lesions Neck: no nodes, no JVD, supple, full ROM coarse sounds bilat, diminished in bases S1, S2 Cardiovascular: RRR, no significant murmur, no rub, gallop Gastrointestinal: soft, non-tender, no distention, positive bowel sounds Musculoskeletal: no edema, pulses present 1 word responses, not following commands, aphasic and dysarthria Skin: no rash, normal turgor, cap refill <2 seconds Dx/Plan (1) Acute encephalopathy Code(s): G93.40 - ENCEPHALOPATHY, UNSPECIFIED Status: Acute Comment: Secondary to hemorrhagic CVA, persistent (2) Cerebellar hemorrhage, acute Code(s): I61.4 - NONTRAUMATIC INTRACEREBRAL HEMORRHAGE IN CEREBELLUM Status: Acute Comment: s/p evacuation with evd on 10/15/2017, evd removal on 10/19/2017, supportive mgmt, no anticoagulation (3) occipital lobe hemorrhage Status: Acute Comment: s/p evacuation with evd, 10/15/2017 (4) Dyslipidemia Code(s): E78.5 - HYPERLIPIDEMIA, UNSPECIFIED Status: Chronic Comment: Lipitor 40mg daily (5) HTN (hypertension) Code(s): I10 - ESSENTIAL (PRIMARY) HYPERTENSION Status: Chronic Qualifiers: Hypertension type: essential hypertension Qualified Code(s): I10 - Essential (primary) hypertension Comment: Stable, continue Coreg 12.5mg BID and Lisinopril 20mg BID - Plan continue antibiotics, PT/OT, social work lecturer, speech therapy, respiratory therapy, DVT proph w/SCDs Continue supportive mgmt -: Nutritional support with Jevity 1.2 @ 55ml/h -: Prostat BID -: Code Status: DNR -: Appreciate Palliative care assistance * CM for SNF options * AM lab: BMP, H/H
[2017-10-22] MEDS: Cefepime 2 GM in Sodium Chloride 0.9% 100 ML IVPB SCH ×3 (01:15→17:00)
[2017-10-22] MEDS: Insulin Regular 300 UNITS/3 ML VIAL SC PRN (04:32)
[2017-10-22 04:54] LABS: Hemoglobin 8.9 g/dL (12.0-16.0)
[2017-10-22 05:04] LABS: Anion Gap 9 mmol/L (10-20); BUN (Urea Nitrogen) 25 mg/dL (9.8-20.1); Calc. Creatinine Clearance 89 mL/min (70-130); Calcium 8.3 mg/dL (7.8-10.44); Carbon Dioxide 26 mmol/L (23-31); Chloride 107 mmol/L (98-107); Estimated GFR-MDRD 83; Glucose 170 mg/dL (83-110); Potassium 3.9 mmol/L (3.5-5.1); Sodium 138 mmol/L (136-145)
[2017-10-22] MEDS: Lisinopril 20 MG TAB PO SCH ×2 (08:47→20:45)
[2017-10-22] MEDS: Atorvastatin Calcium 40 MG TAB PO SCH (08:47)
[2017-10-22] MEDS: Amiodarone 200 MG TAB PO SCH ×3 (08:48→20:43)
[2017-10-22] MEDS: Carvedilol 6.25 MG TAB PO SCH ×2 (08:48→20:42)
[2017-10-22] MEDS: Docusate 100 MG CAP PO SCH ×2 (08:48→20:45)
[2017-10-22] MEDS: Vancomycin HCl 1 GM in Premix Bag 1 BAG IVPB SCH ×2 (08:50→20:45)
[2017-10-22] MEDS: Famotidine 40 MG/5 ML Oral Suspension PER TUBE SCH ×2 (08:53→20:41)
[2017-10-22 08:55] LABS: Vancomycin, Trough 16.3 ug/mL
[2017-10-22] MEDS ORDERED: Furosemide 40 MG/4 ML VIAL SLOW IVP SCH (09:30)
--- NOTE | 2017-10-22 09:37 | PRG ---
DATE OF SERVICE: 10/22/2017 INPATIENT PROGRESS NOTE Selvin Guerrero PA-C dictating for Dr. Waqar Tracey. It is now postoperative day #7, having undergone a left cerebellar clot evacuation. Today, she is ve rbal, in fact, when I say good morning, she states morning. She follows commands in all 4 extremitie s consistently. She does continue to have significant wheezing and rhonchi consistent with her pneum onia with his weekly coughing through the exam. She continues to improve neurologically with a consi stent exam. It will be fine with her transfer to the stroke unit when deemed appropriate by Medicine . Please call with any changes in patient's neurologic status.
--- NOTE | 2017-10-22 09:42 | PRG ---
DATE OF SERVICE: 10/22/2017 SERVICE: Pulmonary Medicine. INTERVAL HISTORY: The patient is doing fine from a respiratory standpoint. She is breathing comfort ably. Otherwise, there has been no interval change to her condition. She is a little bit more awake and attentive today. She is following some simple commands. She is asking appropriate questions an d can phonate. Otherwise, there has been no interval change to her condition. She demonstrates dece nt strength throughout. PHYSICAL EXAMINATION: VITAL SIGNS: Afebrile, pulse 66, blood pressure 169/63, respirations 28, saturation 100% on 2 liters nasal cannula. GENERAL: The patient is awake and alert, in no apparent distress. LUNGS: Decent air entry. There is no prolonged expiratory phase. Rhonchi are present throughout bi lateral lung jimenes. No wheezing or crackles are appreciated. HEART: Normal rate and regular. ABDOMEN: Soft, nontender, nondistended. Bowel sounds are positive. MUSCULOSKELETAL: No cyanosis or clubbing. There is trace to 1+ pitting in the bilateral lower extre mities. LABORATORY DATA: Hemoglobin 8.9, INR 1.3. Creatinine 0.68 and roughly stable. Basic metabolic prof ile is otherwise unremarkable. ASSESSMENT: 1. Cerebrovascular accident, status post TPA with subsequent hemorrhagic conversion, status post scrap sawyer niectomy, postoperative day #7. 2. Acute hypoxic respiratory failure. 3. Community-acquired pneumonia. 4. Severe sepsis. 5. Type 2 diabetes mellitus. 6. Atrial fibrillation with rapid ventricular response, currently sinus rhythm. 7. Encephalopathy secondary to large stroke. 8. Anemia, stable. DISCUSSION AND PLAN: The patient is getting a touch volume overloaded. As such, we will give her on e dose of Lasix. Rodas catheter will be removed and we will apply a diaper. Her tube feeds will be converted over to intermittent bolus feeds. From my perspective, she is stable for transition out of the ICU to the intermediate care unit. She will need very close respiratory attention to prevent he r from having further decompensation there. We will continue working on mobility while she is here, but if Neurosurgery clears her for transition out of the hospital, I think it would be reasonable to get her to an LTAC as soon as possible where she can pursue aggressive physical therapy. The patient 's family would like to get her aggressive care for the next 4-6 weeks. At the end of this period of time, if she does not have good quality of life, they will likely transition over to comfort care on ly, but for the time being, they would like aggressive measures. Pulmonary will continue to follow.
[2017-10-22] MEDS: hydrALAZINE 20 MG/ML VIAL SLOW IVP PRN (09:43)
--- NOTE | 2017-10-22 19:08 | PDOC.PN ---
- Subjective Encounter Start Date: 10/22/17 Encounter Start Time: 17:55 Subjective: f/u CVA with hemorrhagic conversion after t-Pa. Follows a few simple -: commands per nursing. Transitioning to bolus TF's with Glucerna 1.5. - Objective Resuscitation Status: Resuscitation Status DNR:Do Not Resuscitate MAR Reviewed: Yes Vital Signs & Weight: Vital Signs (12 hours) Temp Pulse Pulse Pulse Resp BP BP 10/22/17 18:49 60 18 10/22/17 15:20 97.3 F L 66 17 10/22/17 14:12 61 18 10/22/17 13:12 107 H 89 135/47 L 142/52 H 10/22/17 10:00 98.2 F 64 18 10/22/17 08:00 98.0 F 10/22/17 07:53 98.0 F 72 27 H BP Pulse Ox Pulse Ox Pulse Ox 10/22/17 18:49 95 10/22/17 15:20 126/48 L 93 L 10/22/17 14:12 94 L 10/22/17 13:12 99 100 10/22/17 10:00 150/52 H 95 10/22/17 08:00 10/22/17 07:53 100 Weight Admit Weight 181 lb Weight 196 lb 1.6 oz Most Recent Monitor Data Heart Rate from ECG 66 NIBP 169/63 NIBP BP-Mean 160 Respiration from ECG 28 SpO2 100 I&O: 10/21/17 10/22/17 10/23/17 06:59 06:59 06:59 Intake Total 3187 2814 513 Output Total 885 1030 92 Balance 2302 1784 421 Result Diagrams: 10/22/17 04:39 10/22/17 04:39 Additional Labs: Accuchecks 10/22/17 10/22/17 10/22/17 16:38 10:53 04:32 POC Glucose 126 H 237 H 163 H 10/22/17 10/21/17 04:25 23:15 POC Glucose 108 193 H EKG Reviewed by me: Yes (Tele - V-paced in 70's) Phys Exam - Physical Examination lethargic, opens eyes to name Dobhoff in R nares HEENT: PERRLA, sclera anicteric, oral pharynx no lesions Neck: no nodes, no JVD, supple coarse sounds from upper airway diminished in bases Respiratory: no wheezing S1, S2 Cardiovascular: RRR, no significant murmur, no rub, gallop Gastrointestinal: soft, non-tender, no distention, positive bowel sounds Musculoskeletal: no edema, pulses present states a 1-2 words Neurological: moves all 4 limbs Skin: no rash, normal turgor, cap refill <2 seconds Dx/Plan (1) Acute encephalopathy Code(s): G93.40 - ENCEPHALOPATHY, UNSPECIFIED Status: Acute Comment: Secondary to hemorrhagic CVA, mild improvement (2) Cerebellar hemorrhage, acute Code(s): I61.4 - NONTRAUMATIC INTRACEREBRAL HEMORRHAGE IN CEREBELLUM Status: Acute Comment: s/p evacuation with evd on 10/15/2017, evd removal on 10/19/2017, supportive mgmt, no anticoagulation (3) occipital lobe hemorrhage Status: Acute Comment: s/p evacuation with evd, 10/15/2017 (4) Dyslipidemia Code(s): E78.5 - HYPERLIPIDEMIA, UNSPECIFIED Status: Chronic Comment: Lipitor 40mg daily (5) HTN (hypertension) Code(s): I10 - ESSENTIAL (PRIMARY) HYPERTENSION Status: Chronic Qualifiers: Hypertension type: essential hypertension Qualified Code(s): I10 - Essential (primary) hypertension Comment: Stable, continue Coreg 12.5mg BID and Lisinopril 20mg BID - Plan continue antibiotics, PT/OT, social media marketing analyst, speech therapy, respiratory therapy, DVT proph w/SCDs Continue supportive mgmt -: Continue Lipitor -: Continue Vancomycin and Cefepime -: Nutritional support with Glucerna 1.5 bolus feeds -: Prostat BID * AM lab: BMP, CBC * LTAC/SNF options
[2017-10-23] MEDS: Cefepime 2 GM in Sodium Chloride 0.9% 100 ML IVPB SCH ×2 (00:27→09:06)
[2017-10-23 05:10] LABS: #Basophils 0.1 thou/uL (0.0-0.2); #Eosinphils 0.3 thou/uL (0.0-0.7); #Lymphocytes 0.8 thou/uL (1.20-3.40); #Monocytes 1.2 thou/uL (0.11-0.59); #Neutrophils 11.3 thou/uL (1.40-6.50); %Basophils 0.5 % (0.0-1.0); %Lymphocytes 5.6 % (21.0-51.0); %Monocytes 8.7 % (0.0-10.0); %Neutrophils 83.3 % (42.0-75.0); Hemoglobin 8.5 g/dL (12.0-16.0); Mean Corpuscular HGB CONC 33.3 g/dL (32.0-36.0); Mean Corpuscular Hemoglobin 30.9 pg (27.0-31.0); Mean Corpuscular Volume 92.7 fl (81.0-99.0); Platelet Count 260 thou/uL (130-400); Red Blood Cell (RBC) Count 2.76 mill/uL (4.20-5.40); White Blood Cell (WBC) Count 13.5 thou/uL (4.8-10.8)
[2017-10-23 05:22] LABS: Anion Gap 10 mmol/L (10-20); BUN (Urea Nitrogen) 31 mg/dL (9.8-20.1); Calc. Creatinine Clearance 84 mL/min (70-130); Calcium 8.2 mg/dL (7.8-10.44); Carbon Dioxide 28 mmol/L (23-31); Chloride 105 mmol/L (98-107); Estimated GFR-MDRD 75; Glucose 144 mg/dL (83-110); Magnesium 2.3 mg/dL (1.6-2.6); Potassium 3.7 mmol/L (3.5-5.1); Sodium 139 mmol/L (136-145)
[2017-10-23] MEDS ORDERED: Furosemide 40 MG/4 ML VIAL SLOW IVP SCH (09:00)
[2017-10-23] MEDS: Famotidine 40 MG/5 ML Oral Suspension PER TUBE SCH ×2 (09:04→22:22)
[2017-10-23] MEDS: Carvedilol 6.25 MG TAB PO SCH ×2 (09:05→22:20)
[2017-10-23] MEDS: Amiodarone 200 MG TAB PO SCH ×3 (09:05→22:20)
[2017-10-23] MEDS: Atorvastatin Calcium 40 MG TAB PO SCH (09:05)
[2017-10-23] MEDS: Docusate 100 MG CAP PO SCH ×3 (09:06→22:41)
[2017-10-23] MEDS: Lisinopril 20 MG TAB PO SCH ×2 (09:06→22:22)
[2017-10-23] MEDS: Vancomycin HCl 1 GM in Premix Bag 1 BAG IVPB SCH (09:07)
--- NOTE | 2017-10-23 10:47 | PRG ---
DATE OF SERVICE: 10/23/2017 SERVICE: Pulmonary Medicine INTERVAL HISTORY: The patient is doing fine from a respiratory standpoint. She is actually less rattly today in the back of her throat. She is much more alert. She is following simple commands. That being said, she cannot understand what we are saying. If we motion what we would like for her to do, she follows what we request to a chauncey. PHYSICAL EXAMINATION: VITAL SIGNS: Afebrile, pulse 65, blood pressure 138/46, respirations 16, saturation 99% on 1 liter nasal cannula. GENERAL: The patient is awake, alert, no apparent distress. LUNGS: Excellent air entry. Minimal rhonchi are present. There is no prolonged expiratory phase or wheezing present. HEART: Normal rate, regular. ABDOMEN: Soft, nontender, nondistended. Bowel sounds are positive. MUSCULOSKELETAL: No cyanosis or clubbing. There is no pitting in the bilateral lower extremities. NEUROLOGIC: Grossly nonfocal. LABORATORY DATA: WBC 13.5, hemoglobin 8.5, platelets 260,000. Basic metabolic profile is otherwise unremarkable. Magnesium 2.3. ASSESSMENT: 1. Cerebrovascular accident, status post t-PA with subsequent hemorrhagic conversion, status post craniectomy, postop day #8. 2. Acute hypoxic respiratory failure. 3. Community-acquired pneumonia, status post full course of antibiotic. 4. Severe sepsis. 5. Type 2 diabetes mellitus. 6. Atrial fibrillation with rapid ventricular response, currently sinus rhythm. 7. Encephalopathy secondary to large stroke. 8. Anemia, stable. DISCUSSION AND PLAN: I will give the patient a lab holiday starting tomorrow morning. At this point, she is stable for transition out of the hospital though she is at high risk of respiratory issues moving forward. She has a firm DNI/DNR. That being said, the patient's family would like to be aggressive for the next 4-6 weeks with physical therapy to see what kind of a new baseline she can reestablish. At that time, if the quality of life is simply not there, they are considering transitioning over to comfort measures only. As such, they would like to avoid putting in a PEG tube. The only place they can take her without PEG tube in place at this point, it is going to be an LTAC facility. Pulmonary Critical Care will continue to follow while she remains in house for the time being. FORD
--- NOTE | 2017-10-23 15:56 | PDOC.PN ---
- Subjective Encounter Start Date: 10/23/17 Encounter Start Time: 15:35 Subjective: f/u for CVA with hemorrhagic conversion after t-Pa. Receiving TF's -: via Dobhoff but pulled out tube this pm. More alert but remains confused. - Objective Resuscitation Status: Resuscitation Status DNR:Do Not Resuscitate MAR Reviewed: Yes Vital Signs & Weight: Vital Signs (12 hours) Temp Pulse Resp BP BP BP Pulse Ox 10/23/17 15:20 99.0 F 77 24 H 125/52 L 93 L 10/23/17 12:41 75 20 90 L 10/23/17 12:00 97.5 F L 62 20 131/54 L 93 L 10/23/17 09:05 152/53 H 10/23/17 08:21 98 10/23/17 08:19 65 16 99 10/23/17 08:00 99.4 F 65 16 93 L 10/23/17 07:16 99.4 F 64 20 138/46 L 99 10/23/17 03:57 98.9 F 65 24 H 134/47 L 98 Weight Admit Weight 181 lb Weight 200 lb Most Recent Monitor Data Heart Rate from ECG 66 NIBP 169/63 NIBP BP-Mean 160 Respiration from ECG 28 SpO2 100 I&O: 10/22/17 10/23/17 10/24/17 06:59 06:59 06:59 Intake Total 2814 1933 270 Output Total 1030 642 Balance 1784 1291 270 Result Diagrams: 10/23/17 04:55 10/23/17 04:55 Additional Labs: Accuchecks 10/23/17 10/23/17 10/22/17 10:53 04:12 22:11 POC Glucose 193 H 147 H 178 H 10/22/17 16:38 POC Glucose 126 H Radiology Reviewed by me: Yes (ABD x-ray - Dobhoff feeding tube in place) EKG Reviewed by me: Yes (Tele - V-paced in 70's) Phys Exam - Physical Examination alert, responds with some audible words, +dysarthria Dobhoff in nares HEENT: PERRLA, sclera anicteric, oral pharynx no lesions Neck: no nodes, no JVD, supple, full ROM coarse sounds bilat Respiratory: no wheezing S1, S2 Cardiovascular: RRR, no significant murmur, no rub, gallop Gastrointestinal: soft, non-tender, no distention, positive bowel sounds Musculoskeletal: no edema, pulses present + dysarthria Neurological: moves all 4 limbs Skin: no rash, normal turgor, cap refill <2 seconds Dx/Plan (1) Dysphagia Code(s): R13.10 - DYSPHAGIA, UNSPECIFIED Status: Acute Qualifiers: Dysphagia type: oropharyngeal phase Qualified Code(s): R13.12 - Dysphagia, oropharyngeal phase Comment: Dobhoff currently in place after being pulled out by pt, replaced Dobhoff currently, discussed need for definitive PEG with family and will follow next 24h and see how pt responds, likely will need PEG for next several months (2) Acute encephalopathy Code(s): G93.40 - ENCEPHALOPATHY, UNSPECIFIED Status: Acute Comment: Secondary to hemorrhagic CVA, mild improvement, remains confused but more alert , family assisting with reorientation (3) Cerebellar hemorrhage, acute Code(s): I61.4 - NONTRAUMATIC INTRACEREBRAL HEMORRHAGE IN CEREBELLUM Status: Acute Comment: s/p evacuation with evd on 10/15/2017, evd removal on 10/19/2017, supportive mgmt, no anticoagulation (4) occipital lobe hemorrhage Status: Acute Comment: s/p evacuation with evd, 10/15/2017 (5) Dyslipidemia Code(s): E78.5 - HYPERLIPIDEMIA, UNSPECIFIED Status: Chronic Comment: Lipitor 40mg daily (6) HTN (hypertension) Code(s): I10 - ESSENTIAL (PRIMARY) HYPERTENSION Status: Chronic Qualifiers: Hypertension type: essential hypertension Qualified Code(s): I10 - Essential (primary) hypertension Comment: Stable, continue Coreg 12.5mg BID and Lisinopril 20mg BID - Plan plan discussed w/ family, PT/OT, aids social worker, speech therapy, DVT proph w/ SCDs Stable currently -: Continue TF's with Glucerna 1.5 bolus -: Add Reglan 10mg PT QID -: Dulcolax supp/Senna/Colace -: CM coordinating LTAC options * AM lab: BMP, CBC
--- NOTE | 2017-10-23 16:14 | RAD ---
ABDOMEN ONE VIEW: 10/23/17 HISTORY: Feeding tube placement. COMPARISON: 10/17/17. FINDINGS: The visualized bowel gas pattern is nonspecific. The lower abdomen and pelvis are excluded from the i mage. Metallic tip of a Dobhoff feeding tube overlies the left abdomen at the expected location of th e gastric body. Left pleural fluid and pulmonary vascular congestion are apparent. IMPRESSION: Metallic tip Dobhoff feeding catheter overlies the gastric antrum. Left pleural fluid and pulmonary vascular congestion have increased since the exam one week ago. POS: RENÉ
[2017-10-23] MEDS: Metoclopramide 10 MG/10 ML UDCUP PER TUBE SCH ×2 (17:19→22:18)
[2017-10-23] MEDS: Senokot S 8.6-50 MG TAB PER TUBE SCH ×3 (22:22→22:42)
[2017-10-24 04:23] LABS: #Eosinphils 0.2 thou/uL (0.0-0.7); #Monocytes 1.3 thou/uL (0.11-0.59); #Neutrophils 12.4 thou/uL (1.40-6.50); %Basophils 0.3 % (0.0-1.0); %Eosinophils 1.1 % (0.0-10.0); %Lymphocytes 6.9 % (21.0-51.0); %Monocytes 8.8 % (0.0-10.0); %Neutrophils 82.9 % (42.0-75.0); Hemoglobin 8.7 g/dL (12.0-16.0); Mean Corpuscular HGB CONC 34.4 g/dL (32.0-36.0); Mean Corpuscular Hemoglobin 31.7 pg (27.0-31.0); Mean Corpuscular Volume 92.1 fl (81.0-99.0); Mean Platelet Volume 6.7 fL (7.4-10.4); Platelet Count 280 thou/uL (130-400); Red Blood Cell (RBC) Count 2.76 mill/uL (4.20-5.40)
[2017-10-24 04:34] LABS: Anion Gap 10 mmol/L (10-20); BUN (Urea Nitrogen) 38 mg/dL (9.8-20.1); Calc. Creatinine Clearance 70 mL/min (70-130); Calcium 8.2 mg/dL (7.8-10.44); Carbon Dioxide 30 mmol/L (23-31); Chloride 104 mmol/L (98-107); Estimated GFR-MDRD 61; Glucose 141 mg/dL (83-110); Magnesium 2.3 mg/dL (1.6-2.6); Potassium 3.6 mmol/L (3.5-5.1); Sodium 140 mmol/L (136-145)
--- NOTE | 2017-10-24 09:25 | PRG ---
DATE OF SERVICE: 10/24/2017 The patient seems to be doing reasonably well. She has expressive aphasia. She pulled her Dobhoff t ube out this morning. PHYSICAL EXAMINATION: VITAL SIGNS: Temperature 97.4, pulse 80, respirations 19, O2 sat 100% on 2 liters, blood pressure 14 5/45. HEENT: Unremarkable except for some slight eye deviation. NECK: No JVD. CHEST: Clear. CARDIAC: S1 and S2 regular. ABDOMEN: Soft. EXTREMITIES: No edema. LABORATORY DATA: Sodium 140, potassium 3.6, chloride 104, CO2 30, BUN 30, creatinine 0.8, glucose 14 1. White blood cell count 15, hematocrit 25.4, platelet count 280. ASSESSMENT: 1. Status post cerebrovascular accident. 2. Status post hemorrhagic stroke after t-PA. 3. Resolved acute hypoxic respiratory failure. 4. Status post community-acquired pneumonia. 5. Sepsis. 6. Atrial fibrillation. 7. Encephalopathy. 8. Anemia. PLAN: I am told that she is probably going to need a PEG tube. Her antibiotics were discontinued ye sterday. From my standpoint, she can move out to the stroke floor.
[2017-10-24] MEDS: Docusate 100 MG CAP PO SCH ×2 (09:57→20:39)
[2017-10-24] MEDS: Senokot S 8.6-50 MG TAB PER TUBE SCH ×2 (09:58→20:40)
--- NOTE | 2017-10-24 10:53 | CON ---
DATE OF CONSULTATION: 10/24/2017 GI INPATIENT CONSULTATION NOTE REQUESTING PHYSICIAN: Dr. Brothers. REASON FOR CONSULTATION: PEG tube placement. HISTORY OF PRESENT ILLNESS: Breanna Lr is an 82-year-old woman who was visiting from out of [facility], but unfortunately, she suffered a stroke and was admitted on 10/14/2017. She was given tPA, but u yingortunately had hemorrhagic transformation of her stroke and had to undergo left occipital craniecto my with evacuation of hematoma. Over the past week since then she has been slowly recovering. She h as been getting tube feeds via Dobhoff tube, but within the past couple of days has pulled out her Do bbhoff tube a couple of times. She has residual weakness and is working with physical therapy. She also has oropharyngeal dysphagia and failed a speech evaluation yesterday. The patient's family is a ll in agreement to proceed with PEG tube placement if indicated. The patient has had no known abdomi nal surgeries in the past. No prior history of significant gastrointestinal illness. She has been h emodynamically stable. REVIEW OF SYSTEMS: Unable to obtain a full review of systems due to patient's altered mental status and tangential responses to questioning. PAST MEDICAL HISTORY: Hypertension, seizure disorder, right carotid endarterectomy, pacemaker placem ent, CVA with hemorrhagic transformation 10/14/2017. ALLERGIES: No known drug allergies. INPATIENT MEDICATIONS: DuoNeb, amiodarone, atorvastatin, Coreg, Pepcid 20 mg b.i.d., hydralazine p.r .n., sliding scale insulin, lisinopril, Reglan 10 mg per tube a.c. and at bedtime, senna p.r.n. FAMILY HISTORY: Noncontributory. SOCIAL HISTORY: The patient lives in [place] and was here on a touring trip when she unfortunate ly suffered her stroke. She has family with her in from [place] as well as other family coming in to [place]. PHYSICAL EXAMINATION: VITAL SIGNS: Temperature 97.4, pulse 69, blood pressure 145/45, 99% oxygen saturation on 2 liters na nancy cannula. GENERAL: An 82-year-old woman lying in bed comfortably in no acute distress. MENTAL: She is alert. She is oriented to person. She cannot answer questions with much specificity and is tangential in her responses. SKIN: No jaundice, no rashes were palpable. EYES: No scleral icterus. Extraocular movements intact. ENT: Mucous membranes are moist. She does not have a Dobbhoff tube in place at this time. LYMPH: No submandibular or supraclavicular lymphadenopathy. THYROID: Nontender to palpation. HEART: Regular rate and rhythm. LUNGS: Bibasilar crackles, no wheezing, no respiratory distress. ABDOMEN: Nondistended, tympanitic. Bowel sounds are present. Soft and nontender to palpation throu ghout. EXTREMITIES: No peripheral edema. VESSELS: Radial pulses 2+ bilaterally. LABORATORY DATA: WBC 15.0, hemoglobin 8.7, MCV 92.1, and platelets 280. INR 1.3. Sodium 140, potas sium 3.6, BUN 38, creatinine 0.89, glucose 150, calcium 8.2, magnesium 2.3. On admission, LFTs were all normal. Ammonia was only 14. IMAGING DATA: Last abdominal x-ray from yesterday showed Dobbhoff tube with tip within the gastric l umen. This has since been removed. She has a left pleural effusion and pulmonary vascular congestio n. ASSESSMENT AND PLAN: Oropharyngeal dysphagia following stroke. The patient has not had significant improvement in her swallowing function over the past 10 days since her stroke, and has pulled out her Dobbhoff tube a couple of times in the past couple of days. At this point, I agree with the morelia n for PEG tube placement. I discussed the procedure in detail with the patient's family today and th ey are in agreement with proceeding. We discussed the potential risks of the procedure as well as th e potential benefit. We will plan for PEG tube placement tomorrow. Thank you for the consultation. Please call back with questions or concerns.
[2017-10-24] MEDS: Amiodarone 200 MG TAB PO SCH ×3 (11:26→20:39)
[2017-10-24] MEDS: Metoclopramide 10 MG/10 ML UDCUP PER TUBE SCH ×4 (11:26→20:40)
[2017-10-24] MEDS: Atorvastatin Calcium 40 MG TAB PO SCH (11:27)
[2017-10-24] MEDS: Carvedilol 6.25 MG TAB PO SCH ×2 (11:27→20:39)
[2017-10-24] MEDS: Famotidine 40 MG/5 ML Oral Suspension PER TUBE SCH (11:40)
[2017-10-24] MEDS: Lisinopril 20 MG TAB PO SCH ×2 (11:40→20:40)
[2017-10-24] MEDS: Famotidine/PF 20 mg/2ml Vial SLOW IVP SCH ×2 (11:58→20:56)
--- NOTE | 2017-10-24 22:19 | PDOC.PN ---
- Subjective Encounter Start Date: 10/24/17 Encounter Start Time: 10:05 Subjective: f/u CVA with hemorrhagic conversion post t-Pa. Remains confused -: but following commands. Pulled Dobhoff feeding tube x 2. - Objective Resuscitation Status: Resuscitation Status DNR:Do Not Resuscitate MAR Reviewed: Yes Vital Signs & Weight: Vital Signs (12 hours) Temp Pulse Resp BP BP Pulse Ox 10/24/17 19:44 99.8 F H 74 16 155/47 H 96 10/24/17 19:17 69 16 96 10/24/17 19:15 99.8 F H 74 16 96 10/24/17 15:28 99.7 F H 73 19 161/50 H 100 10/24/17 12:18 66 16 98 10/24/17 11:27 134/65 10/24/17 11:05 98.7 F 67 17 140/35 L 98 Weight Admit Weight 181 lb 10.574 oz Weight 201 lb Most Recent Monitor Data Heart Rate from ECG 66 NIBP 169/63 NIBP BP-Mean 160 Respiration from ECG 28 SpO2 100 I&O: 10/23/17 10/24/17 10/25/17 06:59 06:59 06:59 Intake Total 1933 1114 0 Output Total 642 200 Balance 1291 914 0 Result Diagrams: 10/24/17 03:49 10/24/17 03:49 Additional Labs: Accuchecks 10/24/17 10/24/17 10/24/17 16:26 10:25 04:21 POC Glucose 128 H 152 H 150 H 10/23/17 22:39 POC Glucose 134 H Laboratory Tests 10/15/17 10/16/17 10/17/17 05:40 04:20 04:35 WBC 26.2 H 24.5 H 15.2 H Hgb 11.8 L 9.5 L Magnesium Vancomycin Trough 10/17/17 10/18/17 10/20/17 06:54 18:31 06:56 WBC Hgb Magnesium Vancomycin Trough 7.5 15.7 19.7 10/21/17 10/23/17 10/24/17 04:00 04:55 03:49 WBC 13.5 H Hgb 8.5 L Magnesium 2.0 2.3 Vancomycin Trough EKG Reviewed by me: Yes (Tele - V-paced in 70's) Phys Exam - Physical Examination Constitutional: NAD states a few words to direct questioning HEENT: PERRLA, sclera anicteric, oral pharynx no lesions Neck: no nodes, no JVD, supple, full ROM few scattered coarse sounds bilat S1, S2 Cardiovascular: RRR, no significant murmur, no rub, gallop Gastrointestinal: soft, non-tender, no distention, positive bowel sounds Musculoskeletal: no edema, pulses present + dysarthria Neurological: moves all 4 limbs Skin: no rash, normal turgor, cap refill <2 seconds Dx/Plan (1) Dysphagia Code(s): R13.10 - DYSPHAGIA, UNSPECIFIED Status: Acute Qualifiers: Dysphagia type: oropharyngeal phase Qualified Code(s): R13.12 - Dysphagia, oropharyngeal phase Comment: Pulled out Dobhoff x 2, discussed need for definitive PEG with family agreeing to pursue, NPO currently (2) Acute encephalopathy Code(s): G93.40 - ENCEPHALOPATHY, UNSPECIFIED Status: Acute Comment: Secondary to hemorrhagic CVA, mild improvement, remains confused but more alert , family assisting with reorientation (3) Cerebellar hemorrhage, acute Code(s): I61.4 - NONTRAUMATIC INTRACEREBRAL HEMORRHAGE IN CEREBELLUM Status: Acute Comment: s/p evacuation with evd on 10/15/2017, evd removal on 10/19/2017, supportive mgmt, no anticoagulation (4) occipital lobe hemorrhage Status: Acute Comment: s/p evacuation with evd, 10/15/2017 (5) Dyslipidemia Code(s): E78.5 - HYPERLIPIDEMIA, UNSPECIFIED Status: Chronic Comment: Lipitor 40mg daily (6) HTN (hypertension) Code(s): I10 - ESSENTIAL (PRIMARY) HYPERTENSION Status: Chronic Qualifiers: Hypertension type: essential hypertension Qualified Code(s): I10 - Essential (primary) hypertension Comment: Stable, continue Coreg 12.5mg BID and Lisinopril 20mg BID - Plan plan discussed w/ family, PT/OT, licensed clinical social worker, speech therapy, DVT proph w/ SCDs Stable overall -: Leave out Dobhoff and plan for PEG tube placement -: PT/OT for mobilization -: GI consultation for PEG placement -: AM lab: BMP, CBC, Mg++ * Awaiting SN/LTAC in [place]
[2017-10-25] MEDS ORDERED: Acetaminophen 650 MG Suppository PR PRN (01:29)
[2017-10-25 04:57] LABS: #Eosinphils 0.2 thou/uL (0.0-0.7); #Lymphocytes 1.1 thou/uL (1.20-3.40); #Monocytes 1.3 thou/uL (0.11-0.59); #Neutrophils 12.1 thou/uL (1.40-6.50); %Basophils 0.2 % (0.0-1.0); %Eosinophils 1.4 % (0.0-10.0); %Lymphocytes 7.4 % (21.0-51.0); %Monocytes 8.7 % (0.0-10.0); %Neutrophils 82.3 % (42.0-75.0); Hemoglobin 8.5 g/dL (12.0-16.0); Mean Corpuscular HGB CONC 34.1 g/dL (32.0-36.0); Mean Corpuscular Hemoglobin 31.6 pg (27.0-31.0); Mean Corpuscular Volume 92.8 fl (81.0-99.0); Mean Platelet Volume 7.4 fL (7.4-10.4); Platelet Count 260 thou/uL (130-400); RBC Distribution Width 12.1 % (11.5-14.5); Red Blood Cell (RBC) Count 2.67 mill/uL (4.20-5.40); White Blood Cell (WBC) Count 14.7 thou/uL (4.8-10.8)
[2017-10-25 05:09] LABS: Anion Gap 13 mmol/L (10-20); BUN (Urea Nitrogen) 31 mg/dL (9.8-20.1); Calc. Creatinine Clearance 73 mL/min (70-130); Calcium 7.9 mg/dL (7.8-10.44); Carbon Dioxide 27 mmol/L (23-31); Chloride 107 mmol/L (98-107); Estimated GFR-MDRD 61; Glucose 102 mg/dL (83-110); Magnesium 2.4 mg/dL (1.6-2.6); Potassium 3.7 mmol/L (3.5-5.1); Sodium 143 mmol/L (136-145)
[2017-10-25] MEDS ORDERED: Ondansetron HCl/PF 4 MG/2 ML Vial IVP PRN (08:51)
[2017-10-25] MEDS ORDERED: Promethazine HCl 25 MG/ML VIAL SLOW IVP PRN (08:51)
[2017-10-25] MEDS ORDERED: Promethazine HCl 25 MG/ML VIAL IM PRN (08:51)
--- NOTE | 2017-10-25 09:03 | OP ---
DATE OF PROCEDURE: 10/25/2017 SURGEON: Charli Tipton M.D. SILVICULTURE PROFESSOR SURGEON: None. PROCEDURE PERFORMED: Esophagogastroduodenoscopy with PEG tube placement. INDICATION: Oropharyngeal dysphagia following stroke. MEDICATIONS: 1. See anesthesia record. 2. Ancef 2 grams IV as periprocedural prophylaxis. FINDINGS: After discussion of the risks, benefits and alternatives of the procedure, informed consen t was obtained and verified. Pre-endoscopic cardiopulmonary examination was satisfactory. DESCRIPTION OF PROCEDURE: Timeout was performed before sedation was achieved. Sedation was achieved with anesthesia assistance in the endoscopy unit. The patient was placed in the supine position. A Pentax adult upper endoscope was placed into the oropharynx and passed through the cricopharyngeus u nder direct visualization. The esophageal mucosa appeared normal throughout. The endoscope was adva nced into the stomach. Forward and retroflexed views of the entire gastric mucosa were obtained. Th e gastric mucosa appeared normal. The endoscope was then advanced through the pylorus and into the f irst and second portions of the duodenum, which also appeared normal. At this point, the endoscope w as withdrawn back into the gastric lumen. Using one-to-one pressure and transillumination methods, w e were able to locate a suitable site for PEG tube placement in the left upper quadrant. The site wa s prepped and draped in a sterile fashion. A 1 cm incision was then made with the scalpel. The intr oducer needle and catheter were introduced transcutaneously into the gastric lumen. The needle was w ithdrawn. A wire was passed through the catheter and grasped with the snare. The wire was then with drawn out of the mouth. A standard 20-Kittitian traction PEG tube was affixed to the wire and then pull ed through into position in the standard fashion without difficulty. The esophagus was then reintuba tiffanie with the endoscope and the internal bumper was examined endoscopically and found to be in good po sition. The external bumper clamp and external ports were then affixed to the PEG tube and the proce dure was completed. The external bumper was tightened to a distance of 2 cm. The patient tolerated the procedure well. There were no immediate post-procedure complications. IMPRESSION: 1. Successful placement of 20-Kittitian traction PEG tube to the left upper quadrant, with external bum per at 2 cm. 2. Otherwise, normal esophagogastroduodenoscopy. RECOMMENDATIONS: 1. May use PEG tube for medications right away. 2. May use PEG tube for feedings in 4 hours. 3. Flush tube regularly. 4. I will plan to come by tomorrow to examine the tube and likely loosen the external bumper.
[2017-10-25] MEDS: Amiodarone 200 MG TAB PO SCH ×3 (10:35→21:49)
[2017-10-25] MEDS: Metoclopramide 10 MG/10 ML UDCUP PER TUBE SCH ×4 (10:35→21:50)
[2017-10-25] MEDS: Lisinopril 20 MG TAB PO SCH ×2 (10:35→21:50)
[2017-10-25] MEDS: Atorvastatin Calcium 40 MG TAB PO SCH (10:36)
[2017-10-25] MEDS: Carvedilol 6.25 MG TAB PO SCH ×2 (10:37→21:51)
[2017-10-25] MEDS: Docusate 100 MG CAP PO SCH ×2 (10:37→21:51)
[2017-10-25] MEDS: Senokot S 8.6-50 MG TAB PER TUBE SCH ×2 (10:37→21:50)
--- NOTE | 2017-10-25 11:22 | PDOC.PN ---
- Subjective Encounter Start Date: 10/25/17 Encounter Start Time: 11:05 Subjective: f/u for dysphagia s/p PEG tube placement 10/25/17. Resuming Glucerna -: bolus feeds and monitoring tolerance. No new events noted per nursing. - Objective Resuscitation Status: Resuscitation Status DNR:Do Not Resuscitate MAR Reviewed: Yes Vital Signs & Weight: Vital Signs (12 hours) Temp Pulse Resp BP BP Pulse Ox 10/25/17 10:37 163/55 H 10/25/17 10:35 163/55 H 10/25/17 07:45 99.3 F 69 18 98 10/25/17 07:25 99.3 F 69 18 168/58 H 98 10/25/17 03:50 99.6 F 65 20 139/56 L 99 10/25/17 02:35 73 16 96 10/24/17 23:42 100.9 F H 70 16 136/41 L 100 Weight Admit Weight 181 lb 10.574 oz Weight 210 lb Most Recent Monitor Data Heart Rate from ECG 66 NIBP 169/63 NIBP BP-Mean 160 Respiration from ECG 28 SpO2 100 I&O: 10/24/17 10/25/17 10/26/17 06:59 06:59 06:59 Intake Total 1114 20 Output Total 200 Balance 914 20 Result Diagrams: 10/25/17 04:30 10/25/17 04:30 Additional Labs: Accuchecks 10/25/17 10/25/17 10/24/17 10:47 04:05 22:25 POC Glucose 100 100 103 10/24/17 10/24/17 16:26 10:25 POC Glucose 128 H 152 H EKG Reviewed by me: Yes (Tele- V-paced in 60's) Phys Exam - Physical Examination opens eyes to name, +dysarthria HEENT: PERRLA, sclera anicteric, oral pharynx no lesions Neck: no nodes, no JVD, supple, full ROM Respiratory: no wheezing, no rales, no rhonchi, clear to auscultation bilateral S1, S2 Cardiovascular: RRR, no significant murmur, no rub, gallop PEG intact Gastrointestinal: soft, non-tender, no distention, positive bowel sounds Musculoskeletal: no edema, pulses present Neurological: moves all 4 limbs A x O x 1 Skin: no rash, normal turgor, cap refill <2 seconds Dx/Plan (1) Dysphagia Code(s): R13.10 - DYSPHAGIA, UNSPECIFIED Status: Acute Qualifiers: Dysphagia type: oropharyngeal phase Qualified Code(s): R13.12 - Dysphagia, oropharyngeal phase Comment: Pulled out Dobhoff x 2, s/p PEG placement 10/25/17, resume Glucerna 1.5 bolus feeds (2) Acute encephalopathy Code(s): G93.40 - ENCEPHALOPATHY, UNSPECIFIED Status: Acute Comment: Secondary to hemorrhagic CVA, mild improvement, remains confused but more alert , family assisting with reorientation (3) Cerebellar hemorrhage, acute Code(s): I61.4 - NONTRAUMATIC INTRACEREBRAL HEMORRHAGE IN CEREBELLUM Status: Acute Comment: s/p evacuation with evd on 10/15/2017, evd removal on 10/19/2017, supportive mgmt, no anticoagulation (4) occipital lobe hemorrhage Status: Acute Comment: s/p evacuation with evd, 10/15/2017 (5) Dyslipidemia Code(s): E78.5 - HYPERLIPIDEMIA, UNSPECIFIED Status: Chronic Comment: Lipitor 40mg daily (6) HTN (hypertension) Code(s): I10 - ESSENTIAL (PRIMARY) HYPERTENSION Status: Chronic Qualifiers: Hypertension type: essential hypertension Qualified Code(s): I10 - Essential (primary) hypertension Comment: Stable, continue Coreg 12.5mg BID and Lisinopril 20mg BID - Plan plan discussed w/ family, PT/OT, social security specialist, speech therapy, DVT proph w/ SCDs Stable currently -: Resume Glucerna 1.5 bolus TF's and monitor residuals -: Saline lock IVF's -: Hold all anticoagulation and NSAIDs -: Continue Lipitor 40mg HS * Continue Reglan 10mg PT QID * Await LTAC approval in [place]
--- NOTE | 2017-10-25 11:42 | PDOC.EVN ---
Event Note - Event Note Event Note: October 25, 2017 To Whom It May Concern: Ms. Breanna Lr sustained a hemorrhagic stroke and remains incapacitated regarding orientation, ability to make decisions, understand her condition and unable to manage her financial affairs. This assessment has been based upon daily exams and serial mental status monitoring during her hospital admission. Jesse Brothers D.O. Attending Physician [address] [address]
--- NOTE | 2017-10-25 12:58 | PRG ---
DATE OF SERVICE: 10/25/2017 SUBJECTIVE: I saw her after a PEG tube was placed this morning. She appears to be doing well OBJECTIVE: VITAL SIGNS: Temperature is 99.3, pulse 69, blood pressure 163/55, and O2 sat 98% on 2 liters. HEENT: Unremarkable. NECK: No JVD. LUNGS: Clear. CARDIAC: S1 and S2, regular. ABDOMEN: Fresh PEG tube in place, looks good. EXTREMITIES: No edema. LABORATORY DATA: White blood cell count 14.7, hematocrit 24.8, platelet count 260. Sodium 143, pota ssium 3.7, BUN 31, creatinine 0.8, and glucose 102. ASSESSMENT: 1. Status post cerebrovascular accident. 2. Status post hemorrhagic stroke after TPA. 3. Resolved acute hypoxic respiratory failure. 4. Status post community-acquired pneumonia. 5. Sepsis. 6. Atrial fibrillation. 7. Anemia. PLAN: She looks stable for transfer out to the floor. The main issue now is stroke rehabilitation. Not much else to offer from a pulmonary standpoint at this time.
[2017-10-25] MEDS ORDERED: Lidocaine 1% PF 5 ML VIAL ONE (15:14)
[2017-10-25] MEDS ORDERED: PROPOFOL 200 MG/20 ML VIAL ONE (15:14)
[2017-10-25] MEDS: Famotidine/PF 20 mg/2ml Vial SLOW IVP SCH (15:33)
[2017-10-25] MEDS: Acetaminophen 325 MG TAB PO PRN (16:16)
[2017-10-25] MEDS ORDERED: Furosemide 20 MG/2 ML VIAL SLOW IVP SCH (21:30)
--- NOTE | 2017-10-25 21:37 | RAD ---
PORTABLE UPRIGHT FRONTAL CHEST RADIOGRAPH 10/25/17 COMPARISON: 10/15/17 HISTORY: Suspected aspiration pneumonia. FINDINGS: Dual lead transvenous pacing device in place, inserted via the right sided approach. There is new bibasilar pleural and parenchymal opacity, left greater than right, evidence of bilater al pleural effusions as well as bibasilar air space disease, with probable partial consolidation/maximiliano apse of left lower lobe. There is also pulmonary vascular congestion. IMPRESSION: Pulmonary vascular congestion with bibasilar pleural and parenchymal opacity, left greater than right . Findings suggest pulmonary edema. Infectious pneumonitis or aspiration is a possibility. Followup f ollowing treatment advised. POS: [facility]
[2017-10-25] MEDS: Famotidine 20 MG TAB PO SCH (21:49)
[2017-10-26 04:46] LABS: Anion Gap 13 mmol/L (10-20); BUN (Urea Nitrogen) 27 mg/dL (9.8-20.1); Calc. Creatinine Clearance 80 mL/min (70-130); Calcium 8.3 mg/dL (7.8-10.44); Carbon Dioxide 30 mmol/L (23-31); Chloride 106 mmol/L (98-107); Estimated GFR-MDRD 67; Glucose 158 mg/dL (83-110); Magnesium 2.4 mg/dL (1.6-2.6); Potassium 3.6 mmol/L (3.5-5.1); Sodium 145 mmol/L (136-145)
[2017-10-26] MEDS: hydrALAZINE 20 MG/ML VIAL SLOW IVP PRN (05:02)
[2017-10-26 05:24] LABS: Band 3 % (5-11); Hemoglobin 9.6 g/dL (12.0-16.0); Lymphocytes 4 % (21-51); MDiff Complete? YES; Mean Corpuscular HGB CONC 32.3 g/dL (32.0-36.0); Mean Corpuscular Hemoglobin 30.2 pg (27.0-31.0); Mean Corpuscular Volume 93.5 fl (81.0-99.0); Mean Platelet Volume 6.6 fL (7.4-10.4); Monocytes 2 % (0-10); Neutrophil 91 % (42-75); PLT Morphology Comment Appears Adequate; Platelet Count 377 thou/uL (130-400); Red Blood Cell (RBC) Count 3.18 mill/uL (4.20-5.40); White Blood Cell (WBC) Count 23.2 thou/uL (4.8-10.8)
--- NOTE | 2017-10-26 10:17 | PDOC.PN ---
- Subjective Encounter Start Date: 10/26/17 (f/u hypoxia) Encounter Start Time: 10:17 Subjective: pt progressively more hypoxic overnight requiring bipap -: received one dose of lasix. tolerating bipap - Objective Resuscitation Status: Resuscitation Status DNR:Do Not Resuscitate Vital Signs & Weight: Vital Signs (12 hours) Temp Pulse Resp BP BP Pulse Ox 10/26/17 08:18 71 10/26/17 07:33 99.4 F 70 18 163/56 H 95 10/26/17 05:56 72 10/26/17 05:02 74 178/65 H 10/26/17 03:51 92 L 10/26/17 03:48 97.8 F 70 17 168/70 H 91 L 10/26/17 00:51 60 20 97 10/25/17 23:52 98.3 F 66 17 122/66 94 L Weight Admit Weight 181 lb 10.574 oz Weight 205 lb 8 oz Most Recent Monitor Data Heart Rate from ECG 66 NIBP 169/63 NIBP BP-Mean 160 Respiration from ECG 28 SpO2 100 I&O: 10/25/17 10/26/17 10/27/17 06:59 06:59 06:59 Intake Total 20 960 Balance 20 960 Result Diagrams: 10/26/17 04:19 10/26/17 04:19 Additional Labs: Accuchecks 10/26/17 10/25/17 10/25/17 04:23 22:23 16:50 POC Glucose 157 H 140 H 125 H 10/25/17 10:47 POC Glucose 100 EKG Reviewed by me: Yes (tele - AICD and pacing) Phys Exam - Physical Examination Constitutional: NAD opens eyes to touch coarse breath sounds throughout Cardiovascular: RRR, no significant murmur Gastrointestinal: soft, non-tender, no distention, positive bowel sounds Musculoskeletal: no edema spontaneous movement of hands Deviation from normal: unable to assess Skin: no rash Dx/Plan (1) PNA (pneumonia) Code(s): J18.9 - PNEUMONIA, UNSPECIFIED ORGANISM Status: Acute Qualifiers: Pneumonia type: aspiration pneumonia Laterality: bilateral (2) Acute respiratory failure with hypoxia Code(s): J96.01 - ACUTE RESPIRATORY FAILURE WITH HYPOXIA Status: Acute (3) Acute encephalopathy Code(s): G93.40 - ENCEPHALOPATHY, UNSPECIFIED Status: Acute (4) Cerebellar hemorrhage, acute Code(s): I61.4 - NONTRAUMATIC INTRACEREBRAL HEMORRHAGE IN CEREBELLUM Status: Acute (5) Afib Code(s): I48.91 - UNSPECIFIED ATRIAL FIBRILLATION Status: Chronic Qualifiers: Atrial fibrillation type: chronic Qualified Code(s): I48.2 - Chronic atrial fibrillation (6) Dyslipidemia Code(s): E78.5 - HYPERLIPIDEMIA, UNSPECIFIED Status: Chronic Comment: Lipitor 40mg daily (7) CVA (cerebral vascular accident) Code(s): I63.9 - CEREBRAL INFARCTION, UNSPECIFIED Status: Suspected Qualifiers: CVA mechanism: unspecified Qualified Code(s): I63.9 - Cerebral infarction, unspecified - Plan * new onset aspiration pneumonia - hold tube feeds, start Vanc and Cefepime with renal/pharmacy dosing * hold on further lasix * start IVF * continue bipap for now as pt is tolerating and maintaining normal oxygen sats - wean as tolerated. * * loose stools per Noni/RN - d/c colace and check c diff * * hold meds that are not essential - such as reglan * * dvt prophy - scd's * gi prophy - pepcid * * code status DNR * * Discussed current status/change overnight/and possibility that pt may not surviive this setback with her son Kwaku this morning. Pt is currently stable , he was informed that it will delay LTAC, or that it may end her life. No questions or further needs at end of call. WIll call back with any changes and he is encouraged to call and check on her through the day. *
[2017-10-26] MEDS ORDERED: Cefepime 2 GM in Sodium Chloride 0.9% 100 ML IVPB SCH (10:30)
[2017-10-26] MEDS ORDERED: Vancomycin HCl 1.5 GM in Sodium Chloride 0.9% 250 ML 300 ML IVPB SCH (11:00)
[2017-10-26] MEDS: Metoclopramide 10 MG/10 ML UDCUP PER TUBE SCH ×4 (11:06→20:48)
[2017-10-26] MEDS: Amiodarone 200 MG TAB PO SCH ×3 (11:07→21:43)
[2017-10-26] MEDS: Atorvastatin Calcium 40 MG TAB PO SCH (11:07)
[2017-10-26] MEDS: Lisinopril 20 MG TAB PO SCH ×2 (11:07→21:46)
[2017-10-26] MEDS: Carvedilol 6.25 MG TAB PO SCH ×2 (11:08→21:43)
[2017-10-26] MEDS: Acetaminophen 325 MG TAB PO PRN (11:15)
[2017-10-26] MEDS: Famotidine 20 MG TAB PO SCH ×2 (11:16→21:43)
[2017-10-26] MEDS: D5 1/2 NS w/20 mEq KCL 1,000 ML IV SCH (11:17)
[2017-10-26] MEDS: Senokot S 8.6-50 MG TAB PER TUBE SCH ×2 (11:42→20:49)
--- NOTE | 2017-10-26 12:16 | PRG ---
DATE OF SERVICE: 10/26/2017 Selvin Guerrero PA-C dictating for Waqar Tracey M.D. Ms. Lr is now hospital day #12, postoperative day #10, having undergone left cerebellar clot evacu ation. The patient is doing well from a neurosurgical standpoint. She does continue to have some re spiratory issues and is currently on a BiPAP machine. She remains at good neurologic baseline, [facility], and she is conversant and follows commands in all 4 extremities. Her incision is clean, dry, and intact and there is a scant amount of dried blood on the dressing, but otherwise again the incision is clean and dry, wound healing well. We will intermittently follow the patient, but from a neurosur gical standpoint, she is very stable and doing well postoperatively. Please call with any questions.
--- NOTE | 2017-10-26 13:25 | PRG ---
DATE OF SERVICE: 10/26/2017 SUBJECTIVE: The patient is continuing to have problems with shortness of breath. She is back on BiP AP. OBJECTIVE: VITAL SIGNS: On exam, temperature is 99.2, pulse 70, respirations 26, O2 saturation 98%, blood press ure 123/75. HEENT EXAM: Unremarkable except for dysarthria. NECK: No JVD. LUNGS: Coarse rhonchi. CARDIOVASCULAR: S1 and S2, regular. ABDOMEN: Soft. EXTREMITIES: No edema. IMAGING: Chest x-ray shows bilateral infiltrates, left greater than right. LABORATORY DATA: White blood cell count 23.2, hematocrit 29.7, platelet count 377. Sodium 145, pota ssium 3.3, chloride 106, CO2 of 30, BUN 27, creatinine 0.9, glucose 158. ASSESSMENT: We are basically dealing with a situation that the patient with chronic respiratory fail ure secondary to inability to handle secretions after having a stroke. She probably has bilateral as piration pneumonia, which has not improved with antibiotics. PLAN: She is currently continuing on the BiPAP and on antibiotics. She has been made DNR. I really think we should focus on palliative measures. Dr. Vallejo will reassume care tomorrow.
[2017-10-26] MEDS: Docusate 100 MG CAP PO SCH (14:26)
[2017-10-26] MEDS: Cefepime 2 GM in Sodium Chloride 0.9% 100 ML IVPB SCH (20:44)
[2017-10-26] MEDS: Vancomycin HCl 1 GM in Premix Bag 1 BAG IVPB SCH (23:26)
[2017-10-27] MEDS: D5 1/2 NS w/20 mEq KCL 1,000 ML IV SCH ×2 (04:29→20:46)
[2017-10-27 04:45] LABS: Hemoglobin 9.3 g/dL (12.0-16.0); Mean Corpuscular HGB CONC 33.1 g/dL (32.0-36.0); Mean Corpuscular Hemoglobin 31.2 pg (27.0-31.0); Mean Corpuscular Volume 94.3 fl (81.0-99.0); Mean Platelet Volume 6.6 fL (7.4-10.4); Platelet Count 344 thou/uL (130-400); RBC Distribution Width 12.3 % (11.5-14.5); Red Blood Cell (RBC) Count 2.97 mill/uL (4.20-5.40); White Blood Cell (WBC) Count 44.7 thou/uL (4.8-10.8)
[2017-10-27 04:47] LABS: Anion Gap 11 mmol/L (10-20); BUN (Urea Nitrogen) 27 mg/dL (9.8-20.1); Calc. Creatinine Clearance 72 mL/min (70-130); Calcium 8.2 mg/dL (7.8-10.44); Carbon Dioxide 30 mmol/L (23-31); Chloride 107 mmol/L (98-107); Estimated GFR-MDRD 61; Glucose 192 mg/dL (83-110); Magnesium 2.4 mg/dL (1.6-2.6); Potassium 3.9 mmol/L (3.5-5.1); Sodium 144 mmol/L (136-145)
[2017-10-27 05:34] LABS: Band 17 % (5-11); Lymphocytes 2 % (21-51); MDiff Complete? YES; Monocytes 2 % (0-10); Neutrophil 79 % (42-75); PLT Morphology Comment Appears Adequate
[2017-10-27] MEDS: Famotidine 20 MG TAB PO SCH ×2 (08:19→20:46)
[2017-10-27] MEDS: Metoclopramide 10 MG/10 ML UDCUP PER TUBE SCH ×4 (08:19→21:20)
[2017-10-27] MEDS: Cefepime 2 GM in Sodium Chloride 0.9% 100 ML IVPB SCH (08:19)
[2017-10-27] MEDS: Atorvastatin Calcium 40 MG TAB PO SCH (08:19)
[2017-10-27] MEDS: Amiodarone 200 MG TAB PO SCH ×3 (08:19→20:47)
[2017-10-27] MEDS: Carvedilol 6.25 MG TAB PO SCH ×2 (08:19→20:47)
[2017-10-27] MEDS: Lisinopril 20 MG TAB PO SCH ×2 (08:20→20:47)
[2017-10-27] MEDS: Senokot S 8.6-50 MG TAB PER TUBE SCH ×2 (08:20→20:47)
[2017-10-27] MEDS: Insulin Regular 300 UNITS/3 ML VIAL SC PRN (10:42)
[2017-10-27] MEDS: Vancomycin HCl 1 GM in Premix Bag 1 BAG IVPB SCH (10:43)
--- NOTE | 2017-10-27 12:02 | PRG ---
DATE OF SERVICE: 10/27/2017 SERVICE: Pulmonary Medicine. INTERVAL HISTORY: The patient removed her Dobbhoff tube multiple times through the weekend. Ultimately, the discussion was had with the family and a PEG tube was placed. She cannot provide any additional elements of the history. Through the weekend, she became increasingly encephalopathic. Her white blood cell count went up and she has more of a septic appearance. She was going to be going to an LTAC earlier this week, but that is going to have to be postponed while we sort through some of these other issues that are developing. PHYSICAL EXAMINATION: VITAL SIGNS: Afebrile currently with a T-max of 99.6, pulse 67, blood pressure 138/46, respirations 23, saturation 99% on 50% Ventimask. HEENT: Normocephalic, atraumatic. Sclerae are white, conjunctivae pink. Oral and nasal mucosa is moist without lesions. LUNGS: Decent air entry. There is no prolonged expiratory phase. Rhonchi are extensive. No wheezing is appreciated. HEART: Normal rate, regular. ABDOMEN: Soft. Mild tenderness to palpation. There is no firmness, rigidity, or guarding. There is minimal discomfort with rebound. Bowel sounds are absent. GENITOURINARY: No Rodas. LABORATORY DATA: WBC up trending to 44.7, hemoglobin 9.3, platelets 344,000. INR 1.3. Basic metabolic profile is essentially unremarkable, magnesium 2.4. IMAGING: Chest x-ray demonstrates left-sided pleural parenchymal abnormality, consistent with an aspiration related disease. ASSESSMENT: 1. Cerebrovascular accident, status post TPA with subsequent hemorrhagic conversion, craniectomy, postop day #12. 2. Acute hypoxic respiratory failure. 3. Community-acquired pneumonia, status post full course of antibiotic therapy with subsequent recurrence in symptoms consistent with healthcare-associated pneumonia. 4. Severe sepsis. 5. Type 2 diabetes mellitus. 6. Atrial fibrillation with rapid ventricular response, currently sinus rhythm. 7. Encephalopathy secondary to large stroke. DISCUSSION AND PLAN: Agree with adding antibiotics once again. I will discontinue the cefepime and put her on meropenem to cover anaerobic organisms, because of her recent GI procedure. She will remain in the IMCU for the time being. Tube feeds will be reintroduced tomorrow. At this point, she is not stable for transition out of the hospital. A PICC line will be placed as she is going to require a brief course of antibiotics. FORD
--- NOTE | 2017-10-27 12:19 | PDOC.PN ---
- Subjective Encounter Start Date: 10/27/17 Encounter Start Time: 12:05 Subjective: f/u for acute dyspnea and aspiration pneumonia tx with BiPAP now on FM. -: More somnolent per son's report. Receiving Duonebs and Vanc/Meropenem. -: TF's held due to aspiration. - Objective Resuscitation Status: Resuscitation Status DNR:Do Not Resuscitate MAR Reviewed: Yes Vital Signs & Weight: Vital Signs (12 hours) Temp Pulse Resp BP BP Pulse Ox 10/27/17 11:32 99.0 F 67 23 H 138/46 L 99 10/27/17 08:20 109/32 L 10/27/17 08:19 109/32 L 10/27/17 08:00 99.6 F 65 24 H 98 10/27/17 07:49 65 10/27/17 07:47 69 24 H 98 10/27/17 07:31 99.6 F 64 21 H 140/50 L 99 10/27/17 03:57 97.9 F 81 39 H 132/45 L 94 L 10/27/17 02:16 95 Weight Admit Weight 181 lb 10.574 oz Weight 203 lb 6.4 oz Most Recent Monitor Data Heart Rate from ECG 66 NIBP 169/63 NIBP BP-Mean 160 Respiration from ECG 28 SpO2 100 I&O: 10/26/17 10/27/17 10/28/17 06:59 06:59 06:59 Intake Total 960 2112.5 Balance 960 2112.5 Result Diagrams: 10/27/17 03:40 10/27/17 03:40 Additional Labs: Accuchecks 10/27/17 10/27/17 10/26/17 10:33 04:12 22:11 POC Glucose 200 H 189 H 191 H 10/26/17 16:26 POC Glucose 159 H Laboratory Tests 10/15/17 10/16/17 10/17/17 05:40 04:20 04:35 WBC 26.2 H 24.5 H 15.2 H Hgb 11.8 L 9.5 L Band Neuts % (Manual) Magnesium Vancomycin Trough 10/17/17 10/18/17 10/20/17 06:54 18:31 06:56 WBC Hgb Band Neuts % (Manual) Magnesium Vancomycin Trough 7.5 15.7 19.7 10/21/17 10/23/17 10/24/17 04:00 04:55 03:49 WBC 13.5 H Hgb 8.5 L Band Neuts % (Manual) Magnesium 2.0 2.3 Vancomycin Trough 10/24/17 10/25/17 10/26/17 03:49 04:30 04:19 WBC 15.0 H 14.7 H 23.2 H Hgb 8.7 L 8.5 L 9.6 L Band Neuts % (Manual) 3 L Magnesium Vancomycin Trough 10/27/17 10/27/17 03:40 03:40 WBC Hgb Band Neuts % (Manual) 17 H Magnesium 2.4 Vancomycin Trough EKG Reviewed by me: Yes (Tele - V-paced in 70's) Phys Exam - Physical Examination somnolent, mumbles briefly, FM in place HEENT: PERRLA, oral pharynx no lesions Neck: no nodes, no JVD, supple coarse sounds with diminished airflow in bases S1, S2 Cardiovascular: RRR, no significant murmur, no rub, gallop PEG site CDI Gastrointestinal: soft, non-tender, no distention, positive bowel sounds Musculoskeletal: no edema, pulses present dysarthria, expressive dysphasia Neurological: moves all 4 limbs Skin: no rash, normal turgor, cap refill <2 seconds Dx/Plan (1) Acute respiratory failure with hypoxia Code(s): J96.01 - ACUTE RESPIRATORY FAILURE WITH HYPOXIA Status: Acute Comment: Secondary to #2, BiPAP NIMV, tx as outlined in #2 (2) Aspiration pneumonia Code(s): J69.0 - PNEUMONITIS DUE TO INHALATION OF FOOD AND VOMIT Status: Acute Qualifiers: Laterality: bilateral Comment: Suspected given current clinical situation and resumption of TF's, TF' s on hold, suction the airway, Speech re-evaluation, continue Vancomycin and Meropenem (3) Dysphagia Code(s): R13.10 - DYSPHAGIA, UNSPECIFIED Status: Acute Qualifiers: Dysphagia type: oropharyngeal phase Qualified Code(s): R13.12 - Dysphagia, oropharyngeal phase Comment: Pulled out Dobhoff x 2, s/p PEG placement 10/25/17, resume Glucerna TF' s 10/28/17 with low-volume infusion (4) Acute encephalopathy Code(s): G93.40 - ENCEPHALOPATHY, UNSPECIFIED Status: Acute Comment: persistent due to hemorrhagic CVA (5) Cerebellar hemorrhage, acute Code(s): I61.4 - NONTRAUMATIC INTRACEREBRAL HEMORRHAGE IN CEREBELLUM Status: Acute (6) occipital lobe hemorrhage Status: Acute Comment: s/p evacuation with evd, 10/15/2017 (7) Dyslipidemia Code(s): E78.5 - HYPERLIPIDEMIA, UNSPECIFIED Status: Chronic Comment: Lipitor 40mg daily (8) HTN (hypertension) Code(s): I10 - ESSENTIAL (PRIMARY) HYPERTENSION Status: Chronic Qualifiers: Hypertension type: essential hypertension Qualified Code(s): I10 - Essential (primary) hypertension Comment: Stable, continue Coreg 12.5mg BID and Lisinopril 20mg BID - Plan plan discussed w/ family, continue antibiotics, PT/OT, social service liaison, speech therapy, respiratory therapy, DVT proph w/SCDs Continue supportive mgmt -: Spoke with CM and awaiting approval to LTAC -: O2 supplementation to maintain sats >90% -: Continue Vancomycin and Meropenem -: AM lab: BMP, CBC * Code Status: DNR
[2017-10-27] MEDS ORDERED: Meropenem 1 GM in Sodium Chloride 0.9% 100 ML IVPB SCH (14:00)
[2017-10-27] MEDS: MEROPENEM 1 GM/50 ML 1 GM in Premix Bag 1 BAG IVPB SCH ×2 (15:20→21:27)
--- NOTE | 2017-10-27 15:29 | SPC ---
ULTRASOUND GUIDED LEFT UPPER EXTREMITY PICC LINE PLACEMENT: DATE: 10/27/17. HISTORY: Difficult intravenous access. The patient needs long-term IV antibiotics. TECHNIQUE: After informed consent was obtained, the patient was placed on the angiography table in the supine po sition. Attempt at replacement of a midline in the right upper extremity for PICC was unsuccessful d ue to patient's right-sided cardiac pacemaking device. As a result, the left upper extremity was met iculously prepped and draped in the usual sterile fashion. The skin and subcutaneous tissues were in filtrated with buffered 1% Lidocaine for local anesthesia. The left basilic vein was accessed utilizing micropuncture technique and concurrent real-time ultraso und guidance. A 5 [place]i peelaway sheath was placed. The catheter was measured and cut to the appro priate length. The catheter was placed over the guidewire with tip positioned overlying the distal SVC. Guidewire a nd peelaway sheath were removed. The catheter was accessed and aspirated/flushed easily. The cathet er was secured in place with a dry sterile dressing. The patient tolerated the procedure well and without immediate complication. FINDINGS: Technically successful placement of a single-lumen 5 [place]i 40 cm PICC line via the left basilic vein . The tip of the catheter overlies the distal SVC. IMPRESSION: Technically successful left upper extremity PICC line placement. POS: MILE
[2017-10-27 22:25] LABS: Vancomycin, Trough 22.8 ug/mL
[2017-10-28] MEDS: MEROPENEM 1 GM/50 ML 1 GM in Premix Bag 1 BAG IVPB SCH ×3 (06:18→22:02)
[2017-10-28 06:22] LABS: Anion Gap 9 mmol/L (10-20); BUN (Urea Nitrogen) 24 mg/dL (9.8-20.1); Band 13 % (5-11); Calc. Creatinine Clearance 80 mL/min (70-130); Calcium 7.8 mg/dL (7.8-10.44); Carbon Dioxide 29 mmol/L (23-31); Chloride 110 mmol/L (98-107); Estimated GFR-MDRD 70; Glucose 150 mg/dL (83-110); Hemoglobin 7.2 g/dL (12.0-16.0); Lymphocytes 4 % (21-51); MDiff Complete? YES; Mean Corpuscular HGB CONC 32.5 g/dL (32.0-36.0); Mean Corpuscular Volume 95.1 fl (81.0-99.0); Monocytes 2 % (0-10); Neutrophil 81 % (42-75); PLT Morphology Comment Appears Adequate; Platelet Count 273 thou/uL (130-400); Potassium 3.6 mmol/L (3.5-5.1); RBC Distribution Width 12.1 % (11.5-14.5); Red Blood Cell (RBC) Count 2.31 mill/uL (4.20-5.40); Sodium 144 mmol/L (136-145); White Blood Cell (WBC) Count 23.9 thou/uL (4.8-10.8)
[2017-10-28] MEDS: Vancomycin HCl 1 GM in Premix Bag 1 BAG IVPB SCH (06:59)
[2017-10-28] MEDS: Senokot S 8.6-50 MG TAB PER TUBE SCH ×2 (09:35→21:57)
[2017-10-28] MEDS: Vancomycin HCl 750 MG in Sodium Chloride 0.9% 250 ML 250 ML IVPB SCH ×2 (09:35→21:55)
[2017-10-28] MEDS: Metoclopramide 10 MG/10 ML UDCUP PER TUBE SCH ×4 (09:35→21:58)
[2017-10-28] MEDS: Atorvastatin Calcium 40 MG TAB PO SCH (09:35)
[2017-10-28] MEDS: Amiodarone 200 MG TAB PO SCH ×3 (09:35→21:56)
[2017-10-28] MEDS: Famotidine 20 MG TAB PO SCH ×2 (09:35→22:01)
[2017-10-28] MEDS: Lisinopril 20 MG TAB PO SCH ×2 (09:36→21:57)
[2017-10-28] MEDS: Carvedilol 6.25 MG TAB PO SCH ×2 (09:36→21:56)
[2017-10-28] MEDS: D5 1/2 NS w/20 mEq KCL 1,000 ML IV SCH (14:15)
--- NOTE | 2017-10-28 16:36 | PRG ---
DATE OF SERVICE: 10/28/2017 SERVICE: Pulmonary Medicine. INTERVAL HISTORY: The patient is doing fine from a respiratory standpoint. Denies any current chest pain, nausea, vomiting, fevers or chills. Otherwise, there has been no interval change to her condition. She looks less septic today compared to yesterday. She is resting comfortably. She is requiring NT suction from time to time. We were able generate a lot of mucus from the back of the throat which she is essentially not handling. PHYSICAL EXAMINATION: VITAL SIGNS: Afebrile, pulse 67, blood pressure 134/49, respirations 18, saturation 92% on 3 liters nasal cannula. GENERAL: The patient is awake, alert, no apparent distress. LUNGS: Decent air entry. Rhonchi are present. No prolonged expiratory phase or wheezing is appreciated. HEART: Normal rate, regular. ABDOMEN: Soft, nontender, nondistended. Bowel sounds are positive. MUSCULOSKELETAL: No cyanosis or clubbing. There is no pitting in the bilateral lower extremities. NEUROLOGIC: Nonfocal. LABORATORY DATA: WBC 24, hemoglobin 7.2, platelets 273,000, band is down trending to 13%. Creatinine 0.79 and roughly stable, BUN 24 and down trending. Basic metabolic profile is otherwise unremarkable. ASSESSMENT: 1. Cerebrovascular accident, status post TPA with subsequent hemorrhagic conversion, status post craniectomy, postop day #12. 2. Acute hypoxic respiratory failure. 3. Healthcare-associated pneumonia. 4. Severe sepsis, improving. 5. Type 2 diabetes mellitus. 6. Atrial fibrillation with rapid ventricular response, currently sinus rhythm. 7. Encephalopathy secondary to large stroke. DISCUSSION AND PLAN: I will replace the potassium today. We will give her a laboratory holiday in the morning. I will reintroduce her tube feeds. Hopefully, she will tolerate them this time around. In 24 hours, if she continues to make improvement, she can be considered for transition out of the hospital. FORD
--- NOTE | 2017-10-28 17:39 | PDOC.PN ---
- Subjective Encounter Start Date: 10/28/17 Encounter Start Time: 17:35 Subjective: f/u for aspiration pneumonia, dysphagia s/p PEG tube with resuming -: of TF's today. Improved resp status on O2 via NC @ 3L/min. -: + BM today. - Objective Resuscitation Status: Resuscitation Status DNR:Do Not Resuscitate MAR Reviewed: Yes Vital Signs & Weight: Vital Signs (12 hours) Temp Pulse Pulse Pulse Resp BP BP 10/28/17 15:29 99.3 F 67 18 10/28/17 14:12 63 13 10/28/17 10:54 98.6 F 65 19 10/28/17 10:46 78 69 148/55 H 10/28/17 09:36 172/56 H 10/28/17 07:52 98.9 F 68 22 H 10/28/17 07:34 98.9 F 68 22 H 10/28/17 07:18 10/28/17 07:14 66 12 BP BP BP Pulse Ox Pulse Ox Pulse Ox 10/28/17 15:29 134/49 L 92 L 10/28/17 14:12 96 10/28/17 10:54 169/50 H 93 L 10/28/17 10:46 149/64 H 89 L 93 L 10/28/17 09:36 10/28/17 07:52 96 10/28/17 07:34 104/70 92 L 10/28/17 07:18 99 10/28/17 07:14 99 Weight Admit Weight 181 lb 10.574 oz Weight 202 lb 6.15 oz Most Recent Monitor Data Heart Rate from ECG 66 NIBP 169/63 NIBP BP-Mean 160 Respiration from ECG 28 SpO2 100 I&O: 10/27/17 10/28/17 10/29/17 06:59 06:59 06:59 Intake Total 2112.5 976 90 Balance 2112.5 976 90 Result Diagrams: 10/28/17 05:56 10/28/17 05:56 Additional Labs: Accuchecks 10/28/17 10/28/17 10/28/17 16:25 10:26 05:53 POC Glucose 171 H 157 H 165 H 10/27/17 20:26 POC Glucose 175 H Laboratory Tests 10/15/17 10/16/17 10/17/17 05:40 04:20 04:35 WBC 26.2 H 24.5 H 15.2 H Hgb 11.8 L 9.5 L Band Neuts % (Manual) Magnesium Vancomycin Trough 10/17/17 10/18/17 10/20/17 06:54 18:31 06:56 WBC Hgb Band Neuts % (Manual) Magnesium Vancomycin Trough 7.5 15.7 19.7 10/21/17 10/23/17 10/24/17 04:00 04:55 03:49 WBC 13.5 H Hgb 8.5 L Band Neuts % (Manual) Magnesium 2.0 2.3 Vancomycin Trough 10/24/17 10/25/17 10/26/17 03:49 04:30 04:19 WBC 15.0 H 14.7 H 23.2 H Hgb 8.7 L 8.5 L 9.6 L Band Neuts % (Manual) 3 L Magnesium Vancomycin Trough 10/27/17 10/27/17 10/28/17 03:40 03:40 05:56 WBC 44.7 H* Hgb 9.3 L Band Neuts % (Manual) 17 H 13 H Magnesium 2.4 Vancomycin Trough EKG Reviewed by me: Yes (Tele - Paced in 70's) Phys Exam - Physical Examination alert, states a few words HEENT: PERRLA, sclera anicteric, oral pharynx no lesions Neck: no nodes, no JVD, supple, full ROM few scattered rhonchi, diminished in bases Respiratory: no wheezing S1, S2 Cardiovascular: RRR, no significant murmur, no rub, gallop PEG site CDI Gastrointestinal: soft, non-tender, no distention, positive bowel sounds LUE with PICC in place Musculoskeletal: no edema, pulses present + dysarthria A x O x 1 Skin: no rash, normal turgor, cap refill <2 seconds Dx/Plan (1) Acute respiratory failure with hypoxia Code(s): J96.01 - ACUTE RESPIRATORY FAILURE WITH HYPOXIA Status: Acute Comment: Secondary to #2, resolving with stabilizing resp status, O2 via NC, suction airway prn (2) Aspiration pneumonia Code(s): J69.0 - PNEUMONITIS DUE TO INHALATION OF FOOD AND VOMIT Status: Acute Qualifiers: Laterality: bilateral Comment: Suspected given current clinical situation and resumption of TF's, TF' s resuming at low-volume rate, suction the airway, Speech re-evaluation, continue Vancomycin and Meropenem (3) Dysphagia Code(s): R13.10 - DYSPHAGIA, UNSPECIFIED Status: Acute Qualifiers: Dysphagia type: oropharyngeal phase Qualified Code(s): R13.12 - Dysphagia, oropharyngeal phase Comment: Pulled out Dobhoff x 2, s/p PEG placement 10/25/17, resuming Glucerna 1.2 TF's 10/28/17 with low-volume infusion (4) Acute encephalopathy Code(s): G93.40 - ENCEPHALOPATHY, UNSPECIFIED Status: Acute Comment: persistent due to hemorrhagic CVA (5) Cerebellar hemorrhage, acute Code(s): I61.4 - NONTRAUMATIC INTRACEREBRAL HEMORRHAGE IN CEREBELLUM Status: Acute (6) occipital lobe hemorrhage Status: Acute Comment: s/p evacuation with evd, 10/15/2017 (7) Dyslipidemia Code(s): E78.5 - HYPERLIPIDEMIA, UNSPECIFIED Status: Chronic Comment: Lipitor 40mg daily (8) HTN (hypertension) Code(s): I10 - ESSENTIAL (PRIMARY) HYPERTENSION Status: Chronic Qualifiers: Hypertension type: essential hypertension Qualified Code(s): I10 - Essential (primary) hypertension Comment: Stable, continue Coreg 12.5mg BID and Lisinopril 20mg BID - Plan plan discussed w/ family, continue antibiotics, PT/OT, social research assistant, speech therapy, respiratory therapy, DVT proph w/SCDs Stable currently -: Resuming TF's with Glucerna 1.2 at 40ml/h -: Monitor for residuals -: Suction airway prn -: Continue Vancomycin and Meropenem * CM for LTAC options
[2017-10-28] MEDS: hydrALAZINE 20 MG/ML VIAL SLOW IVP PRN (23:23)
[2017-10-29] MEDS: MEROPENEM 1 GM/50 ML 1 GM in Premix Bag 1 BAG IVPB SCH (05:04)
[2017-10-29] MEDS: D5 1/2 NS w/20 mEq KCL 1,000 ML IV SCH (05:05)
[2017-10-29] MEDS: Insulin Regular 300 UNITS/3 ML VIAL SC PRN (05:10)
[2017-10-29] MEDS: Amiodarone 200 MG TAB PO SCH (09:35)
[2017-10-29] MEDS: Carvedilol 6.25 MG TAB PO SCH (09:35)
[2017-10-29] MEDS: Senokot S 8.6-50 MG TAB PER TUBE SCH (09:35)
[2017-10-29] MEDS: Atorvastatin Calcium 40 MG TAB PO SCH (09:35)
[2017-10-29] MEDS: Metoclopramide 10 MG/10 ML UDCUP PER TUBE SCH ×2 (09:35→11:57)
[2017-10-29] MEDS: Lisinopril 20 MG TAB PO SCH (09:35)
[2017-10-29] MEDS: Famotidine 20 MG TAB PO SCH (09:35)
[2017-10-29] MEDS: Vancomycin HCl 750 MG in Sodium Chloride 0.9% 250 ML 250 ML IVPB SCH (09:58)
[2017-10-29 11:48] VITALS: TEMP 98.7
--- NOTE | 2017-10-29 13:17 | PRG ---
DATE OF SERVICE: 10/29/2017 SERVICE: Pulmonary Medicine. INTERVAL HISTORY: The patient is doing fine from a cardiovascular and respiratory standpoint. She is breathing much more comfortably. Oxygen requirements are once again declining. She cannot provide any additional elements of the history. She will spontaneously open up her eyes. She has been able to work with physical therapy and actually stand. PHYSICAL EXAMINATION: VITAL SIGNS: Afebrile, pulse 61, blood pressure 158/58, respirations 24, saturation 96% on 2 liters nasal cannula. GENERAL: The patient is awake and alert, in no apparent distress. LUNGS: Excellent air entry with no prolonged expiratory phase, wheezing, rhonchi or crackles. HEART: Normal rate, regular. ABDOMEN: Soft, nontender and nondistended. Bowel sounds are positive. MUSCULOSKELETAL: No cyanosis or clubbing. There is no pitting in the bilateral lower extremities. LABORATORY DATA: Blood sugars ranged from 157-174. ASSESSMENT: 1. Cerebrovascular accident, status post TPA with subsequent hemorrhagic conversion, status post craniectomy, postop day #13. 2. Acute hypoxic respiratory failure. 3. Healthcare-associated pneumonia. 4. Severe sepsis, resolving again. 5. Type 2 diabetes mellitus. 6. Atrial fibrillation with rapid ventricular response, currently sinus rhythm. 7. Encephalopathy secondary to large stroke. DISCUSSION AND PLAN: I will repeat laboratories tomorrow morning. She is once again returning back what is likely close to her new baseline. From my perspective, she is stable for transition out of the hospital to an LTAC facility once that arrangement has been made. She will need to complete at least a 7-day course of her current antibiotics. If she is here tomorrow morning, we will repeat some laboratories. Otherwise, we will continue with supportive management and aggressive mobilization efforts. FORD
[2017-10-29 13:58] VITALS: BMI 30.2
[2017-10-29 14:39] VITALS: BP 147/55
--- NOTE | 2017-10-30 00:27 | DIS ---
DATE OF ADMISSION: 10/14/2017 DATE OF DISCHARGE: 10/29/2017 DISCHARGE DIAGNOSES: 1. Acute hypoxic respiratory failure secondary to aspiration pneumonia, improved. 2. Aspiration pneumonia. 3. Dysphagia secondarily to acute hemorrhagic cerebrovascular accident, status post PEG tube placeme nt on 10/25/2017. 4. Acute encephalopathy, multifactorial secondary to hemorrhagic cerebrovascular accident. 5. Acute cerebrovascular accident with hemorrhagic conversion, status post TPA. 6. Status post evacuation of occipital lobe hematoma with external ventricular drain 10/15/2017. 7. Dyslipidemia. 8. Hypertension. CONSULTATIONS: Dr. Tracey with neurosurgical service. Dr. Horvath with neurology service, Dr. Perfecto reynolds with pulmonology service, Dr. Robert with cardiology service. PERTINENT LABORATORY DATA AND X-RAY FINDINGS: Potassium ranged between 3.2 to 4.3. LFTs within norm al limits. Phosphorus 3.8, magnesium level 2.0. Total cholesterol 126, triglycerides 63, HDL 58, LD L 55. CBC showed a white blood cell count ranging between 8.8 to 44.7, hemoglobin ranged between 7.2 to 13.1. Vancomycin trough 22.8 on 10/27/2017. CT of the brain without contrast dated 10/14/2017 s howed chronic small vessel ischemic changes in the periventricular white matter and old left posterio r cerebral artery infarct. No acute intracranial process identified. CT angiogram of the brain date d 10/14/2017 showed no focal stenosis noted. MRI of the brain dated 10/15/2017 showed large interval acute left posterior fossa hemorrhage with surrounding vasogenic edema with ventricular obstruction at the level of the fourth ventricle. A 2D transthoracic echocardiogram dated 10/15/2017 showed ejec tion fraction 50%-55%. Left bundle branch block pattern noted with paradoxical motion. No pericardi al effusion. CT of the brain dated 10/16/2017 showed residual hematoma in the left posterior fossa w ith right frontal ventriculostomy catheter in place. HOSPITAL COURSE: Patient was admitted to the intermediate care unit after presenting with aphasia an d acute CVA initially ischemic. Patient was treated with TPA in the emergency room and apparently re gained the ability to speak, however, was noted with nonsensical words with expressive dysphagia. Pa tient was initially placed on IV Keppra and underwent general stroke protocol including MRI imaging o f the brain. MRI subsequently revealed a large left posterior fossa hemorrhage requiring emergent ne urosurgical consultation. Patient underwent evacuation of hematoma with external ventricular drain d evice placement on 10/15/2017. Patient was continued off all anticoagulation and monitored by the [facility]. Patient remained with expressive and receptive aphasia, undergoing general stroke protocol and monitoring. Patient was slow to clinically improve and had a protracted hospital course. Patient underwent subsequent removal of the external ventricular drain w ith serial CT monitoring showing overall improvement and resolution of hematoma. Patient continued w ith neurologic deficits including expressive aphasia regaining with some improvement in dysarthria an d word finding. Patient was noted with persistent dysphagia evaluated by the speech therapy service. Due to patient's persistent dysphagia and concern for aspiration, patient was given a trial of NG t ube placement with nutritional supplementation. Patient continued to have difficulty with subsequent Dobbhoff feeding tube placed. Patient inadvertently removed the Dobbhoff feeding tube x2, prompting placement of a PEG tube. Patient transitioned to PEG tube feeds with Glucerna 1.2 with overall goal rate of 55 mL per hour. Patient developed aspiration requiring intermittent BiPAP noninvasive mecha nical ventilation with suctioning of the airway and near resolution by the time of discharge. Patien t transitioned to oxygen by nasal cannula at 2 liters per minute and remained with O2 saturations in the upper 90% range. Patient was resumed on tube feeds with low volume and Glucerna 1.2 and monitore d by the speech therapy service. Patient was tolerating a current level at 40 mL per hour and may wv ed additional time to equilibrate with serial gastric residual monitoring. Due to patient's overall neurologic deficits and concern for supervised medical care, the patient was deemed an appropriate ca ndidate for long-term acute care. [facility] I have examined the patient's at the time of discharge and discuss pertinent followup instructions with patient's son at the bedside. Patient's son verbal izes understanding and agreement and ready for transfer on 10/29/2017. DISCHARGE MEDICATIONS: 1. Amiodarone 400 mg per PEG tube t.i.d. 2. Lipitor 40 mg per PEG tube daily. 3. Coreg 12.5 mg per PEG tube b.i.d. 4. Pepcid 20 mg per PEG tube b.i.d. 5. DuoNebs 3 mL nebulized q.6 hours p.r.n. 6. Lisinopril 20 mg per PEG tube b.i.d. 7. Meropenem 1 gram IV q.8 hours. 8. Reglan 10 mg per PEG tube a.c. and at bedtime. 9. Vancomycin 750 mg IV q.12 hours. FOLLOWUP: Patient will follow up with [facility] in [place], [place] after disch arge. SPECIAL INSTRUCTIONS: Remove lois from the scalp on 10/30/2017. DIET: Glucerna 1.2 at 40 mL per hour with a goal rate of 55 mL per hour. Free water replacement at 30 mL q.4 subcutaneously. CODE STATUS: DO NOT RESUSCITATE. DISPOSITION: Transferred to [facility] with [place], [place] on 10/29/2017. Total time preparing and coordinating discharge 45 minutes.
[2017-10-30] MEDS ORDERED: Heparin 1,000 UNITS/ML VIAL ONE (15:40)
== END 2017-10-29 15:36 | DRG 23 ==
LOC: ERS 12:10 → CCU 15:22 → IMCU/EMU 10-22 09:59
PROVIDERS: ADMIT Internal Medicine; ATTEND Internal Medicine
PROC: 3E03317 Introduction of Other Thrombolytic into Peripheral Vein, Percutaneous Approach (ICD-10-PCS; 2017-10-14)
PROC: 0WC10ZZ Extirpation of Matter from Cranial Cavity, Open Approach (ICD-10-PCS; principal; 2017-10-15)
PROC: 009600Z Drainage of Cerebral Ventricle with Drainage Device, Open Approach (ICD-10-PCS; 2017-10-15)
PROC: 05HM33Z Insertion of Infusion Device into Right Internal Jugular Vein, Percutaneous Approach (ICD-10-PCS; 2017-10-15)
PROC: B543ZZA Ultrasonography of Right Jugular Veins, Guidance (ICD-10-PCS; 2017-10-15)
PROC: 0DH63UZ Insertion of Feeding Device into Stomach, Percutaneous Approach (ICD-10-PCS; 2017-10-25)
PROC: 3E0G76Z Introduction of Nutritional Substance into Upper GI, Via Natural or Artificial Opening (ICD-10-PCS; 2017-10-25)
PROC: 02HV33Z Insertion of Infusion Device into Superior Vena Cava, Percutaneous Approach (ICD-10-PCS; 2017-10-27)
PROC: B548ZZA Ultrasonography of Superior Vena Cava, Guidance (ICD-10-PCS; 2017-10-27)
DX: I63.9 Cerebral infarction, unspecified (principal); J69.0 Pneumonitis due to inhalation of food and vomit; I61.1 Nontraumatic intracerebral hemorrhage in hemisphere, cortical; A41.9 Sepsis, unspecified organism; R65.20 Severe sepsis without septic shock; G93.41 Metabolic encephalopathy; J95.821 Acute postprocedural respiratory failure; G91.1 Obstructive hydrocephalus; R47.01 Aphasia; E78.5 Hyperlipidemia, unspecified; I10 Essential (primary) hypertension; Z66 Do not resuscitate; Y95 Nosocomial condition; T45.615A Adverse effect of thrombolytic drugs, initial encounter; E11.9 Type 2 diabetes mellitus without complications; I48.91 Unspecified atrial fibrillation; D64.9 Anemia, unspecified; R13.12 Dysphagia, oropharyngeal phase; G40.909 Epilepsy, unspecified, not intractable, without status epilepticus; Z95.0 Presence of cardiac pacemaker; Y83.8 Other surgical procedures as the cause of abnormal reaction of the patient, or of later complication, without mention of misadventure at the time of the procedure; Y82.8 Other medical devices associated with adverse incidents; Y92.239 Unspecified place in hospital as the place of occurrence of the external cause
CPT/HCPCS: 36415; 36416; 36569; 51702; 70450; 70496; 70498; 70551; 70553; 71045; 74018; 80048; 80053; 80061; 80164; 80185; 80202; 81003; 82140; 82805; 83605; 83735; 84100; 85014; 85018; 85025; 85610; 85730; 86850; 86900; 86901; 93005; 93010; 93306; 93970; 94002; 94003; 94640; 94660; 95816; 95819; 96365; 96372; A4216; A4353; C9399; G8978-GP-CM; G8978-GP-CN; G8979-GP-CK; G8979-GP-CL; G8987-GO-CM; G8988-GO-CK; G8996-GN-CN; G8997-GN-CM; J0360; J0670; J0692; J1644; J1815; J1940; J1953; J2001; J2060; J2185; J2270; J2370; J2704; J2997; J3010; J3370; J3475; J3480; J3490; J7050; J7620; S0020; S0028